=== PATIENT | female | born 1960 | race Caucasian/White ===

== ENCOUNTER 2020-03-16 06:41 | Outpatient (REF) | payer MEDICARE, SELFPAY | END 2020-03-16 06:42 | disposition home or self-care (01) | LOC: HO.LAB 06:41 | PROVIDERS: PCP Internal Medicine; Visit Provider Internal Medicine | DX: Z20.822 Contact with and (suspected) exposure to COVID-19 (principal) | CPT/HCPCS: 36415; C9803; U0003 ==

== ENCOUNTER 2020-05-06 09:05 | Outpatient (REF) | payer MEDICARE, SELFPAY ==
[2020-05-06 10:03] LABS: MANUAL DIFF FLAG NO
[2020-05-06 10:07] LABS: Basophils Absolute Auto 0.1 X10*3/uL (0.0-0.2); Eosinophils Absolute Auto 0.1 X10*3/uL (0.0-0.4); Eosinophils Percent Auto 2.3 % (0-4); Hematocrit 44.3 % (37-47); Hemoglobin 15.1 g/dl (12.0-16.0); Imm Gran Abs Auto 0.02 X10*3/uL (0.00-0.03); Imm Gran Pct Auto 0.4 % (0.0-0.4); Lymphocytes Absolute Auto 1.5 X10*3/uL (1.2-4.9); Lymphocytes Percent Auto 29.3 % (20-40); Mean Corpuscular HGB Conc 34.1 g/dl (31.0-35.0); Mean Corpuscular Hemoglobin 31.7 pg (27.0-33.0); Mean Corpuscular Volume 93.1 fL (80-98); Mean Platelet Volume 9.6 fL (9.4-12.3); Monocytes Absolute Auto 0.4 X10*3/uL (0.1-1.2); Monocytes Percent Auto 8.1 % (2-11); Neutrophils Percent Auto 58.9 % (45-73); Platelet Count 248 X10*3/uL (160-400); Red Blood Count 4.76 X10*6/uL (4.20-5.50); Red Cell Distribution Width 12.8 % (11.0-16.0); White Blood Count 5.2 X10*3/uL (4.8-10.8)
[2020-05-06 10:22] LABS: Appearance Urine CLEAR; Color Urine YELLOW; Glucose Urine UA NEG (NEG); Leukocyte Esterase Urine 1+ (NEG); Nitrite Urine NEG (NEG); Urine Blood NEG (NEG); Urine Ketones NEG (NEG); Urine Protein NEG (NEG-TRACE)
[2020-05-06 10:51] LABS: RBC Urine 0 /HPF (0); Squamous Epithelial Cell Urine 1+ /LPF
[2020-05-06 10:59] LABS: Free T4 (Free Thyroxine) 0.92 ng/dL (0.71-1.85); Thyroid Stimulating Hormone 1.44 uIU/mL (0.32-4.0); Vitamin D 25-OH Total 23.8 ng/mL (>30)
[2020-05-06 11:08] LABS: Alanine Aminotransferase 21 U/L (0-31); Albumin Level 4.3 g/dL (3.5-5.0); Alkaline Phosphatase 83 U/L (39-117); Anion Gap 12 (12-20); Aspartate Amino Transferase 23 U/L (5-31); Bilirubin Total 0.8 mg/dL (0.0-1.0); Blood Urea Nitrogen 12 mg/dL (9-16); Calcium 8.9 mg/dL (8.4-10.2); Carbon Dioxide 25 mmol/L (22-29); Chloride 107 mmol/L (96-108); Cholesterol 257 mg/dL; Estimated Glomerular Filt Rate 57; Glucose Random 94 mg/dL (60-115); HDL Cholesterol 92 mg/dL; LDL Cholesterol Calculated 155 mg/dl; Potassium 4.4 mmol/L (3.3-5.1); Sodium 140 mmol/L (135-145); Triglycerides 53 mg/dL
[2020-05-06 11:23] LABS: Folate 8.7 ng/mL (> or = 4.0); Vitamin B12 347 pg/mL (200-900)
== END 2020-05-06 09:06 | disposition home or self-care (01) ==
LOC: HO.10HDL 09:05
PROVIDERS: Visit Provider Internal Medicine
DX: E78.00 Pure hypercholesterolemia, unspecified (principal); I47.1 Supraventricular tachycardia; N39.46 Mixed incontinence
CPT/HCPCS: 36415; 80053; 80061; 81001; 82306; 82607; 82746; 84439; 84443; 85025; 86900; 86901

== ENCOUNTER → 2020-09-30 10:13 | Outpatient (REF) | payer MEDICARE, SELFPAY ==
--- NOTE | 2020-09-30 10:30 | CA_ITS ---
Transthoracic Echocardiogram Patient (Last, First, Middle): Catherine Snider E Gender: Female Date of : 1960 Age: 60 Procedure Date: 09/30/2020 Procedure Type: Transthoracic Echocardiogram Location: OP Height: 160.02 cm Weight: 62.14 kg BSA: 1.65 m2 Heart Rate: bpm BP: 118 / 68 mmHg Debate Director: Referring MD: Ta Okeefe PA-C Symptoms: I49.3 PVC,I47.2 PVT, I49.1 PAC, R00.2 PALPITATIONS, Z79.899 Study Quality: Fair ECG Rhythm: Sinus Conclusions: - The left ventricular systolic function is normal. The visually estimated ejection fraction is between 55-60%. - There is mild anterior mitral leaflet thickening. - No obvious valvular pathology seen on this study. Findings Left Ventricle Normal left ventricular cavity size. There is normal left ventricular wall thickness. The left ventricular systolic function is normal. The visually estimated ejection fraction is between 55-60%. There is no evidence of regional wall motion abnormalities. Diastolic function is normal for age. Right Ventricle Normal right ventricular cavity size and systolic function. TAPSE 2.36cm. Atria Both atria are normal in size. Aortic Valve There is a normal trileaflet aortic valve. There is no aortic valve stenosis. There is no aortic valve regurgitation. Mitral Valve There is mild anterior mitral leaflet thickening. There is trace mitral valve regurgitation. There is no mitral valve stenosis. Pulmonic Valve The pulmonic valve was not well visualized. Tricuspid Valve There is trace tricuspid valve regurgitation. The pulmonary artery systolic pressure is normal. Great Vessels The aortic annulus, sinuses of valsalva, and asc aorta are normal in size. Venous The inferior vena cava is normal in size and collapses greater than 50% with inspiration. Pericardium/Pleural There is no evidence of pericardial effusion. Prior Study Comparison No significant change compared to prior study dated: 01/10/2019. Recommendations, Care & Conclusions No obvious valvular pathology seen on this study. Measurements 2D Linear Measurements IVSd: 0.72 0.6-0.9/0.6-1.0 cm LVIDd: 4.59 3.9-5.3/4.2-5.9 cm LVIDd Index: 2.78 2.4-3.2/2.2-3.1 cm/m2 LVIDs: 2.98 2.0-3.6 cm LVPWd: 0.73 0.7-1.1 cm Ao Root: 2.40 2.1-3.5 cm LA Diam: 3.00 2.7-3.8/3.0-4.0 cm LAIDs Index: 1.82 1.5-2.3 cm/m2 LV Mass: 128.36 67-162/88-224 g LV Mass Index: 77.80 43-95/49-115 g/m2 LVOT Diam: 1.90 3.0+(-)1.3 cm 2D Systolic Function EF 4C: 50.30 >55% EF 2C: 60.00 >55% EF BiP: 54.70 >55% Mitral Valve MV Pk E: 0.56 MV PK A: 0.70 MV Decel Time: 204.00 E/A: 0.80 E'Lateral: 9.36 E'Medial: 4.68 E/E' Med: 11.90 E/E' Lat: 6.00 PHT: 60.00 MVA PHT: 3.67 Decel Berks: 2.73 Aortic Valve AoV Pk Saran: 1.19 AoV Mn Saran: 0.78 AoV VTI: 0.29 AoV Pk Grad: 6.00 Aov Mn Grad: 3.00 ADILSON Cont.VTI: 1.66 LVOT LVOT Pk Saran: 0.68 LVOT Mn Saran: 0.46 LVOT VTI: 0.17 LVOT Pk Grad: 2.00 LVOT Mn Grad: 1.00 LVOT Diam: 1.90 LVOT Area: 2.84 Diastolic Function MV Pk E: 0.56 MV Pk A: 0.70 E/A: 0.80 E'Medial: 4.68 E/E' Med: 11.90 E' Laterial: 9.36 E/E' Lat: 6.00 Right Ventricle TAPSE (mm): 2.36 TVS' Saran: 10.60 Tricuspid Valve TR Pk Saran: 2.00 TR Pk Grad: 16.00 RA Press: 3.00 RVSP: 19.00 Great Vessels Aorta Ao Root-2D: 2.40 2.0-3.7 cm Ao Asc: 2.90 2.1-3.4 cm Pulmonary Valve PV Pk Saran: 0.79 Peak PV Grad: 2.00 Updated in Other Vendor System with Status of Final Rex Wilde MD electronically signed on 10/02/2020 2:29:43 PM with status of Final
== END ==
LOC: HO.CARD 10:13
PROVIDERS: PCP Internal Medicine; Visit Provider Physician Assistant Medical
DX: I49.3 Ventricular premature depolarization (principal); R00.2 Palpitations
CPT/HCPCS: 93306

== ENCOUNTER 2020-11-11 | Outpatient (REF) | payer MEDICARE, SELFPAY ==
[2020-11-11 13:33] LABS: Appearance Urine CLEAR; Color Urine YELLOW; Glucose Urine UA NEG (NEG); Leukocyte Esterase Urine 1+ (NEG); Nitrite Urine NEG (NEG); Specific Gravity - Urine 1.015 (1.005-1.025); UACC Culture Trigger YES; Urine Blood TRACE (NEG); Urine Ketones NEG (NEG); Urine Protein NEG (NEG-TRACE)
[2020-11-11 13:43] LABS: Squamous Epithelial Cell Urine 1+ /LPF
== END 2020-11-11 00:01 | disposition home or self-care (01) ==
LOC: HO.LAB
PROVIDERS: PCP Internal Medicine; Visit Provider Internal Medicine
DX: R31.9 Hematuria, unspecified (principal)
CPT/HCPCS: 81001; 87086; 87088; 87147; 87186

== ENCOUNTER 2020-12-07 10:00 | Outpatient (REF) | payer MEDICARE, SELFPAY ==
--- NOTE | ~2020-12-07 | XR_ITS ---
EXAMINATION: XR SACRUM AND COCCYX CLINICAL INFORMATION: Pain. COMPARISON: CT abdomen/pelvis dated 11/24/2017 TECHNIQUE: 2 views of the sacrum and 2 views of the coccyx were obtained. FINDINGS: Mild right and left sacroiliac joint space narrowing with small marginal osteophytes and minimal subchondral sclerosis, unchanged. No osseous erosion. Phleboliths within the pelvis. No fracture or dislocation. 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
--- NOTE | ~2020-12-07 | XR_ITS ---
EXAMINATION: XR KNEE, RIGHT CLINICAL INFORMATION: Pain. COMPARISON: None. TECHNIQUE: AP and lateral views of the right knee. FINDINGS: Mild medial compartment joint space narrowing. Tiny medial and patellofemoral compartment marginal osteophytes. No osseous erosion. No abnormal soft tissue calcification. Small joint effusion. XR/XR knee RT 2V IMPRESSION: Minimal medial and patellofemoral compartment arthrosis. Small joint effusion.
== END 2020-12-07 10:01 | disposition home or self-care (01) ==
LOC: HO.XRAY 10:00
PROVIDERS: PCP Internal Medicine; Visit Provider Internal Medicine
DX: M25.561 Pain in right knee (principal); M54.50 Low back pain, unspecified
CPT/HCPCS: 72220; 73560

== ENCOUNTER 2021-01-15 07:15 | Outpatient (REF) | payer MEDICARE, SELFPAY ==
--- NOTE | ~2021-01-15 | XR_ITS ---
EXAMINATION: RIGHT KNEE X-RAY CLINICAL INFORMATION: Pain COMPARISON: Previous x-ray December 2020 TECHNIQUE: [place] view of the right knee FINDINGS: Bone alignment is normal. No fracture is seen. XR/XR knee RT 1V IMPRESSION: Normal sunrise view of the right knee.
== END 2021-01-15 07:16 | disposition home or self-care (01) ==
LOC: HO.HOSX 07:15
PROVIDERS: Visit Provider Physician Assistant
DX: M25.561 Pain in right knee (principal)
CPT/HCPCS: 73560; 99202

== ENCOUNTER 2021-04-22 07:21 | Outpatient (REF) | payer MEDICARE, SELFPAY ==
--- NOTE | ~2021-04-22 | CT_ITS ---
EXAMINATION: CT ABDOMEN AND PELVIS WITHOUT CONTRAST CLINICAL INFORMATION: Left lower quadrant pain. COMPARISON: 11/24/2017 TECHNIQUE: Multidetector volumetric imaging was performed from the superior aspect of the liver through the pubic symphysis. Sagittal and coronal reformatted images were obtained on the technologist's workstation. This CT examination was performed using dose optimization techniques as appropriate, variously including the following: *Automated exposure control *Adjustment of mA and/or kV according to patient size (this includes techniques or standardized protocols for targeted exams where dose is matched to indication/reason for exam; i.e. extremities or head) *Use of iterative reconstruction technique DLP: 360 mGy-cm FINDINGS: LUNG BASES: Lung bases appear unremarkable. No pleural or pericardial effusion. LIVER, GALLBLADDER, AND BILIARY TREE: The liver is normal in size, shape, and attenuation. No focal hepatic lesion or biliary ductal dilatation is present. Cholelithiasis is present without evidence of acute cholecystitis. PANCREAS: Unremarkable. No abnormal mass or peripancreatic inflammatory change. SPLEEN: Unremarkable. ADRENAL GLANDS: Unremarkable. KIDNEYS AND URETERS: The kidneys are normal in size, shape, and attenuation. No hydronephrosis, hydroureter, or calculi seen. No perinephric stranding. BLADDER: Decompressed. GASTROINTESTINAL TRACT: No free air or free fluid. No dilated loops of large or small bowel. Patient status post previous sigmoid colon surgery. There is stranding within mesenteric fat with mild diverticulosis of the descending colon; however, no focal region of wall thickening or fluid collection is identified and I cannot definitely say this is related to acute diverticulitis. No dilated colon is seen proximal to the surgical anastomoses. ABDOMINAL WALL: No significant hernia is appreciated. LYMPH NODES: No lymphadenopathy is appreciated. VASCULAR: No abdominal aortic aneurysm. PELVIC VISCERA: No suspicious mass identified. OSSEOUS STRUCTURES: No suspicious destructive bony lesions identified. There is some degenerative change of the sacroiliac joints bilaterally without evidence of widening or fusion. There is partial sacralization of L5. CT/CT abdomen pelvis wo con IMPRESSION: Nonspecific mesenteric fat stranding. No definite evidence of acute diverticulitis or colitis. No abnormal fluid collections appreciated. Cholelithiasis without evidence of acute cholecystitis. Fleischner guidelines were followed.
== END 2021-04-22 07:22 | disposition home or self-care (01) ==
LOC: HO.CT 07:21
PROVIDERS: Visit Provider Nurse Practitioner Family
DX: R10.32 Left lower quadrant pain (principal)
CPT/HCPCS: 74176

== ENCOUNTER 2021-06-24 10:29 | Outpatient (REF) | payer MEDICARE, SELFPAY ==
[2021-06-24 10:56] LABS: COVID-19 Test Negative (Negative); IDNOW Serial# 08D9AD1C
== END 2021-06-24 10:30 | disposition home or self-care (01) ==
LOC: HO.LAB 10:29
PROVIDERS: Visit Provider Internal Medicine
DX: Z20.822 Contact with and (suspected) exposure to COVID-19 (principal)
CPT/HCPCS: 87635; C9803

== ENCOUNTER 2021-09-07 09:29 | Outpatient (REF) | payer MEDICARE, SELFPAY ==
[2021-09-07 10:03] LABS: COVID-19 Test Negative (Negative); IDNOW Serial# 16C4AD1C
== END 2021-09-07 09:30 | disposition home or self-care (01) ==
LOC: HO.LAB 09:29
PROVIDERS: Visit Provider Internal Medicine
DX: Z20.822 Contact with and (suspected) exposure to COVID-19 (principal)
CPT/HCPCS: 87635; C9803

== ENCOUNTER 2021-09-30 08:37 | Outpatient (REF) | payer MEDICARE, SELFPAY ==
[2021-09-30 09:16] LABS: COVID-19 Test Negative (Negative)
== END 2021-09-30 08:38 | disposition home or self-care (01) ==
LOC: HO.LAB 08:37
PROVIDERS: Visit Provider Internal Medicine
DX: Z20.822 Contact with and (suspected) exposure to COVID-19 (principal)
CPT/HCPCS: 87635; C9803

== ENCOUNTER 2021-10-21 07:49 | Outpatient (REF) | payer MEDICARE, SELFPAY ==
[2021-10-21 10:57] LABS: MANUAL DIFF FLAG NO
[2021-10-21 11:05] LABS: Appearance Urine Clear; Color Urine Yellow; Glucose Urine UA Negative (Negative); Leukocyte Esterase Urine Negative (Negative); Nitrite Urine Negative (Negative); PH 5.5 (5.0-8.0); Specific Gravity - Urine 1.015 (1.005-1.025); Urine Blood Negative (Negative); Urine Ketones Negative (Negative); Urine Protein Negative (Neg-Trace)
[2021-10-21 11:06] LABS: Basophils Absolute Auto 0.1 X10*3/uL (0.0-0.2); Basophils Percent Auto 0.9 % (0-2); Eosinophils Absolute Auto 0.1 X10*3/uL (0.0-0.4); Eosinophils Percent Auto 2.2 % (0-4); Hematocrit 45.6 % (37.0-47.0); Hemoglobin 15.5 g/dl (12.0-16.0); Imm Gran Abs Auto 0.02 X10*3/uL (0.00-0.03); Imm Gran Pct Auto 0.4 % (0.0-0.4); Immature Retic Fraction 6.2 % (3.0-15.9); Lymphocytes Absolute Auto 1.6 X10*3/uL (1.2-4.9); Mean Corpuscular Hemoglobin 31.3 pg (27.0-33.0); Mean Corpuscular Volume 91.9 fL (80.0-98.0); Mean Platelet Volume 9.8 fL (9.4-12.3); Monocytes Absolute Auto 0.4 X10*3/uL (0.1-1.2); Monocytes Percent Auto 7.5 % (2-11); Neutrophils Absolute Auto 3.2 x10*3/uL (2.0-8.3); Platelet Count 257 X10*3/uL (160-400); Red Blood Count 4.96 X10*6/uL (4.20-5.50); Red Cell Distribution Width 12.6 % (11.0-16.0); Retic HGB Equivalent 37.3 pg (30.0-35.0); Reticulocyte Percent 1.2 % (0.5-1.8); White Blood Count 5.4 X10*3/uL (4.8-10.8)
[2021-10-21 11:22] LABS: Alanine Aminotransferase 15 U/L (0-31); Albumin Level 4.3 g/dL (3.5-5.0); Alkaline Phosphatase 80 U/L (39-117); Anion Gap 15 (12-20); Aspartate Amino Transferase 17 U/L (5-31); Bilirubin Total 0.5 mg/dL (0.0-1.0); Blood Urea Nitrogen 19 mg/dL (9-16); C Reactive Protein 0.07 mg/dL (< or = 0.50); Calcium 9.4 mg/dL (8.4-10.2); Carbon Dioxide 26 mmol/L (22-29); Chloride 105 mmol/L (96-108); Cholesterol 259 mg/dL; Estimated Glomerular Filt Rate 54; Glucose Random 92 mg/dL (60-115); HDL Cholesterol 80 mg/dL; Iron 118 mcg/dL (30-160); LDL Cholesterol Calculated 164 mg/dl; Magnesium 2.1 mg/dL (1.6-2.6); Percent Iron Saturation 42 % (15-50); Phosphorus 4.5 mg/dL (2.7-4.5); Potassium 4.4 mmol/L (3.3-5.1); Sodium 142 mmol/L (135-145); Total Iron Binding Capacity 282 mcg/dL (228-428); Total Protein 7.3 g/dL (6.5-8.0); Triglycerides 75 mg/dL; Unsaturated Iron Binding 164 ug/dL
[2021-10-21 11:45] LABS: Ferritin 77 ng/mL (10-250); Free T4 (Free Thyroxine) 0.94 ng/dL (0.71-1.85); Thyroid Stimulating Hormone 2.28 uIU/mL (0.32-4.0); Vitamin D 25-OH Total 28.8 ng/mL (>30)
[2021-10-21 13:15] LABS: Folate 7.6 ng/mL (> or = 4.0); Vitamin B12 321 pg/mL (200-900)
== END 2021-10-21 07:50 | disposition home or self-care (01) ==
LOC: HO.10HDL 07:49
PROVIDERS: Visit Provider Internal Medicine
DX: E78.00 Pure hypercholesterolemia, unspecified (principal); I47.1 Supraventricular tachycardia; E55.9 Vitamin D deficiency, unspecified; K80.20 Calculus of gallbladder without cholecystitis without obstruction; R30.0 Dysuria
CPT/HCPCS: 36415; 80053; 80061; 81003; 82306; 82607; 82728; 82746; 83540; 83735; 84100; 84439; 84443; 85025; 85045; 86140

== ENCOUNTER 2022-08-29 11:14 | Outpatient (REF) | payer MEDICARE, SELFPAY ==
[2022-08-29 12:33] LABS: Appearance Urine Clear; Color Urine Yellow; Glucose Urine UA Negative (Negative); Leukocyte Esterase Urine Negative (Negative); Nitrite Urine Negative (Negative); Specific Gravity - Urine <= 1.005 (1.005-1.025); Urine Blood Negative (Negative); Urine Ketones Negative (Negative); Urine Protein Negative (Neg-Trace)
== END 2022-08-29 11:15 | disposition home or self-care (01) ==
LOC: HO.LAB 11:14
PROVIDERS: PCP Internal Medicine; Visit Provider Internal Medicine
DX: R31.9 Hematuria, unspecified (principal)
CPT/HCPCS: 81003; 87086

== ENCOUNTER 2022-08-30 09:31 | Outpatient (REF) | payer MEDICARE, SELFPAY | END 2022-08-30 09:32 | disposition home or self-care (01) | LOC: HO.LAB 09:31 | PROVIDERS: PCP Internal Medicine; Visit Provider Internal Medicine | DX: Z13.89 Encounter for screening for other disorder (principal) ==

== ENCOUNTER 2022-09-16 15:37 | Outpatient (AMB) | payer MEDICARE, SELFPAY ==
[2022-09-16 15:38] VITALS: BP 118/72; PULSE 77; O2SAT 97; BMI 25.7
--- NOTE | 2022-09-16 15:38 | MHC.PC.OV ---
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 Accompanied by: Self / Same As Patient Allergies Iodinated Contrast Media [IV CONTRAST] Allergy (Intermediate, Verified 09/16/22 15:39) PERIORBITAL SWELLING ciprofloxacin [From CIPRO] Allergy (Unknown, Verified 09/16/22 15:39) Nausea iodine Allergy (Unknown, Verified 09/16/22 15:39) from the [facility]SCAn had sweling periorbital metronidazole [Flagyl] Allergy (Unknown, Verified 09/16/22 15:39) headaches Sulfa (Sulfonamide Antibiotics) Allergy (Unknown, Verified 09/16/22 15:39) headache, severe migraine sulfamethoxazole [From BACTRIM] Allergy (Unknown, Verified 09/16/22 15:39) HEADACHE trimethoprim [From BACTRIM] Allergy (Unknown, Verified 09/16/22 15:39) HEADACHE Medication List - Last Reconciled 09/16/22 by Andre Tipton MD lorazepam 0.5 mg PO BID-TID PRN metoprolol tartrate 12.5 mg PO BID PRN Tobacco use date assessed: 09/16/22 Dental Screening Dental Screen Date: 09/16/22 Did you have a dental visit in the last 12 months?: Yes Did you have a dental problem in the last 6 months where you did not have access to dental care?: No Was dental information given to patient?: Patient has dentist HPI left sided lower abdominal pain HPI Details 62-year-old female with PSVT, hypercholesterolemia generalized anxiety disorder insomnia last seen in April 2022. Colonoscopy is up-to-date mammogram is due. Patient was recently in the emergency room in [facility] left lower quadrant pain question of diverticulitis CT scan done revealing no diverticulitis patient was prescribed antibiotic but patient was hesitant due to history of C diff. PAtient is upset with previous physician.. found blood on urination- ]Dr. Jama patient is on loop recorder right now. Patient needs a letter for jury duty. Discussed with the patient regarding the type of pain and went to suspect that there is bigger problem. Discussed about rebound as well as guarding. COUNT INCLUDES THE [facility] Medical History Diverticular disease Hypercholesterolemia Hyperventilation syndrome Mitral valve prolapse Paroxysmal supraventricular tachycardia Polycystic ovaries Vitamin D deficiency Surgical History History of cardiac radiofrequency ablation History of colonoscopy History of lymph node excision History of polycystic ovaries S/P colon resection Family History Father Myocardial infarction CVD (cardiovascular disease) Hypertension Mother CHF (congestive heart failure) Hypertension CAD (coronary artery disease) Maternal Grandfather Brain tumor Brother No problems noted. Sister No problems noted. Son No problems noted. Social History Housing: House Alcohol intake: never Patient Tobacco Use Status: Never used Tobacco e-Cigarette/Vaping Use: Never Used Second Hand Smoke Exposure: No service: No Current occupational status: unemployed Cognitive needs: No Hearing needs: No Vision needs: Yes (reading glasses) Questionnaire PHQ-9 Over the last 2 weeks, how often have you been bothered by any of the following problems? 1. Little interest or pleasure in doing things: more than half the days 2. Feeling down, depressed, or hopeless: more than half the days 3. Trouble falling or staying asleep, or sleeping too much: more than half the days 4. Feeling tired or having little energy: more than half the days 5. Poor appetite or overeating: several days 6. Feeling bad about yourself - or that you are a failure or have let yourself or your family down: several days 7. Trouble concentrating on things, such as reading the newspaper or watching television: several days 8. Moving or speaking so slowly that other people could have noticed. Or the opposite - being so fidgety or restless that you have been moving around a lot more than usual: not at all 9. Thoughts that you would be better off or of hurting yourself in some way: not at all Total score: 11 Depression Screening Interpretation: Positive Source: Developed by Drs. Ta Redding, Arleen Mckeon, Santosh Rodriguez and colleagues, with an educational donna from [employer]. Thrive Questionnaire Date Thrive assessed: 09/16/22 I am a: Patient What is your living situation today?: I have a steady place to live Within the past 12 months, did the food you bought not last and you didn't have the money to get more?: Never true Within the past 12 months, did you worry whether your food would run out before you got money to buy more?: Never true Do you have trouble paying for medicines?: No Do you have trouble getting transportation to medical appointments?: No Do you have trouble paying your heating and electricity bill?: No Do you have trouble taking care of your child, family member or friend?: No Do you have trouble with day-to-day activities such as bathing, preparing meals, shopping, managing finances, etc.?: No Are you currently unemployed and looking for a job?: No Are you interested in more education?: No Please select the resources that you would like help with: None Currently or been in a relationship where the following occur: no concerns reported AUDIT C Alcohol Use Questionnaire (AUDIT-C) 1. How often do you have a drink containing alcohol?: Never 3. How often do you have six or more drinks on one occasion?: Never Total Score: 0 Score Reviewed/Action Taken: No CHANELL-7 AMB Questionnaire CHANELL-7 Date CHANELL - 7 assessed: 09/16/22 Feeling nervous, anxious, or on edge: 0 = Not at all Not being able to stop or control worryin = Not at all Worrying too much about different things: 0 = Not at all Trouble relaxin = Not at all Being so restless that it is hard to sit still: 0 = Not at all Becoming easily annoyed or irritable: 0 = Not at all Feeling afraid as if something awful might happen: 0 = Not at all Total CHANELL-7 score (0-4 normal; 5-9 mild; 10-14 moderate; 15-21 severe): 0 Source: Developed by Drs. Ta Redding, Arleen Mckeon, Santosh Rodriguez and colleagues, with an educational donna from [employer]. Physical exam (Primary Care) Vital Signs: Last Vital Signs Pulse 77 09/16/22 15:38 BP 118/72 09/16/22 15:38 Pulse Ox 97 09/16/22 15:38 Oxygen Delivery Method Room Air 09/16/22 15:38 BMI result Body Mass Index 25.7 Tobacco/Smoking Status: Tobacco use Status Tobacco use date assessed 09/16/22 09/16/22 15:43 Patient Tobacco Use Status Never used Tobacco 09/16/22 15:43 e-Cigarette/Vaping Use Never Used 09/16/22 15:43 PHQ-9: PHQ-9 Score PHQ-9: Total score 11 09/16/22 15:43 Depression Screening Interpretation: Positive Thrive Assessment: Date of Thrive Assessment Date Thrive assessed 09/16/22 09/16/22 15:43 Currently or been in a relationship where the following occur: no concerns reported Const General: alert; No acute distress Eyes Conjunctivae: conjunctivae normal Resp Auscultation: clear to auscultation bilaterally Cardio Rate: regular rate Rhythm: regular rhythm GI Inspection: Yes normal to inspection Extrem General: Yes normal to inspection and No edema Assessment and Plan Assessment & Plan (1) Paroxysmal supraventricular tachycardia: Comment: November 2014 Dr. Elkins [facility] cardiac MRI 2017 echo 60-65% mild MR January [address] Jama and [place] Dr. Ramey April 2019 cardiac MRI ejection fraction 57% normal echocardiogram October 2021 ejection fraction 45-50% Code(s): I47.1 - Supraventricular tachycardia Plan: Continue to follow-up on this patient on metoprolol filled 12.5 mg twice a day (2) Hypercholesterolemia: Code(s): E78.00 - Pure hypercholesterolemia, unspecified Plan: Avoid fried foods, chicken skin, eggs, butter margarine, pastries and meat. Be it pork or beef they have a lot of cholesterol LDL goal of less than 130 and triglyceride of less than 150 (3) Generalized anxiety disorder: Comment: Panic attacks. counselling private- DR. Garcia. Code(s): F41.1 - Generalized anxiety disorder Plan: Continue with counseling (4) LLQ pain: Code(s): R10.32 - Left lower quadrant pain Plan: Resolved (5) Constipation: Code(s): K59.00 - Constipation, unspecified Plan: Three rules for constipation 1. Diet need to have a high fiber diet less of meat 2. Increase oral fluids 3. Exercise Coding Level of Care Code Est Pt Level 4 (07474) Diagnoses Paroxysmal supraventricular tachycardia I47.1 Hypercholesterolemia E78.00 Generalized anxiety disorder F41.1 LLQ pain R10.32 Constipation K59.00 Additional Codes PHQ-9 - 79428 - PHQ-9 Billing: Y ([id number])
== END 2022-09-16 16:28 | disposition home or self-care (01) ==
PROVIDERS: PCP Internal Medicine; Visit Provider Internal Medicine
DX: I47.1 Supraventricular tachycardia (principal); E78.00 Pure hypercholesterolemia, unspecified; F41.1 Generalized anxiety disorder; R10.32 Left lower quadrant pain; K59.00 Constipation, unspecified; Z13.30 Encounter for screening examination for mental health and behavioral disorders, unspecified
CPT/HCPCS: 99214

== ENCOUNTER 2023-01-17 13:41 | Outpatient (AMB) | payer MEDICARE, SELFPAY ==
[2023-01-17 13:57] VITALS: BP 144/98; PULSE 62; O2SAT 98; BMI 26.9
--- NOTE | 2023-01-17 13:57 | A.OFFPC_ITS ---
Vital Signs 01/17/23 13:57 Height 5 ft 3 in Weight 152 lb BMI 26.9 BP 144/98 H Blood Pressure Location Lt brachial Position Sitting Pulse 62 Pulse Source Pulse Oximeter Pulse Oximetry (%) 98 Oxygen Delivery Method Room Air Intake Visit Reasons: Annual Exam Sample Prep Technician: Not Required per policy Accompanied by: Self / Same As Patient Allergies Iodinated Contrast Media [IV CONTRAST] Allergy (Intermediate, Verified 01/17/23 13:58) PERIORBITAL SWELLING ciprofloxacin [From CIPRO] Allergy (Unknown, Verified 01/17/23 13:58) Nausea iodine Allergy (Unknown, Verified 01/17/23 13:58) from the CTSCAn had sweling periorbital metronidazole [Flagyl] Allergy (Unknown, Verified 01/17/23 13:58) headaches Sulfa (Sulfonamide Antibiotics) Allergy (Unknown, Verified 01/17/23 13:58) headache, severe migraine sulfamethoxazole [From BACTRIM] Allergy (Unknown, Verified 01/17/23 13:58) HEADACHE trimethoprim [From BACTRIM] Allergy (Unknown, Verified 01/17/23 13:58) HEADACHE Medication List - Last Reconciled 01/17/23 by Andre Tipton MD lorazepam 0.5 mg PO BID-TID PRN metoprolol tartrate 12.5 mg PO BID PRN Tobacco use date assessed: 09/16/22 Dental Screening Dental Screen Date: 01/17/23 Did you have a dental visit in the last 12 months?: Yes Did you have a dental problem in the last 6 months where you did not have access to dental care?: No Was dental information given to patient?: Patient has dentist HPI Annual Exam HPI Details 62-year-old female with PSVT hypercholes terolemia and generalized anxiety disorder last seen in September 2022. Shunt is here for physical exam. Colonoscopy is up-to-date mammogram is due. Review of the notes was seen by Neurology for dizziness diagnosis of hyperventilation syndrome better with lorazepam vertigo has benign positional vertigo patient also has seen Cardiology had unsuccessful ablation and implantable loop recorder placement in 2014 structurally normal heart 2016 no evidence of cardiomyopathy trial of atenolol with some improvement but intolerance transition to metoprolol intolerant of propranolol negative genetic testing negative PET scan was supposed to have a reimplantation of loop recorder but was postponed due to co COVID-19 trial ofAcebutololbut this did not go through. Most recent January 2022 Zio patch on metoprolol [facility] Medical History Hyperventilation syndrome Diverticular disease Mitral valve prolapse Vitamin D deficiency Hypercholesterolemia Polycystic ovaries Paroxysmal supraventricular tachycardia Surgical History History of colonoscopy History of polycystic ovaries S/P colon resection History of lymph node excision History of cardiac radiofrequency ablation Family History Father Myocardial infarction CVD (cardiovascular disease) Hypertension Mother CHF (congestive heart failure) Hypertension CAD (coronary artery disease) Maternal Grandfather Brain tumor Brother No problems noted. Sister No problems noted. Son No problems noted. Social History Housing: House Alcohol intake: never Patient Tobacco Use Status: Never used Tobacco e-Cigarette/Vaping Use: Never Used Second Hand Smoke Exposure: No service: No Current occupational status: unemployed Cognitive needs: No Hearing needs: No Vision needs: Yes (reading glasses) Questionnaire PHQ-9 Over the last 2 weeks, how often have you been bothered by any of the following problems? 1. Little interest or pleasure in doing things: more than half the days 2. Feeling down, depressed, or hopeless: more than half the days 3. Trouble falling or staying asleep, or sleeping too much: more than half the days 4. Feeling tired or having little energy: more than half the days 5. Poor appetite or overeating: several days 6. Feeling bad about yourself - or that you are a failure or have let yourself or your family down: several days 7. Trouble concentrating on things, such as reading the newspaper or watching television: several days 8. Moving or speaking so slowly that other people could have noticed. Or the opposite - being so fidgety or restless that you have been moving around a lot more than usual: not at all 9. Thoughts that you would be better off or of hurting yourself in some way: not at all Total score: 11 Depression Screening Interpretation: Positive Depression Screening Done: Yes Source: Developed by Calvin Ohet B.W. Mike, Santosh Rodriguez and colleagues, with an educational donna from [employer]. Thrive Questionnaire Date Thrive assessed: 09/16/22 AUDIT C Alcohol Use Questionnaire (AUDIT-C) 1. How often do you have a drink containing alcohol?: Never 3. How often do you have six or more drinks on one occasion?: Never Total Score: 0 Score Reviewed/Action Taken: No CHANELL-7 AMB Questionnaire CHANELL-7 Date CHANELL - 7 assessed: 09/16/22 Source: Developed by Drs. Ta Redding, Arleen Mckeon, Santosh Rodriguez and colleagues, with an educational donna from [employer]. Review of Systems Const Denies poor appetite and Denies weakness Eyes Denies no additional complaints ENT Reports Normal hearing present, Denies dizziness, Denies nasal congestion, Denies tinnitus and Denies sore throat Card Denies chest pain, Denies syncope, Denies rapid heart rate and Denies dyspnea Resp Denies cough and Denies dyspnea GI Denies change in stool character, Reports constipation, Denies diarrhea, Denies nausea and Denies vomiting Denies urinary frequency, Denies difficulty voiding and Denies dysuria Neuro Reports Normal hearing present, Denies confusion, Denies dizziness, Denies syncope and Denies weakness Psych Denies confusion Physical exam (Primary Care) Vital Signs: Last Vital Signs Pulse 62 01/17/23 13:57 BP 144/98 H 01/17/23 13:57 Pulse Ox 98 01/17/23 13:57 Oxygen Delivery Method Room Air 01/17/23 13:57 BMI result Body Mass Index 26.9 Tobacco/Smoking Status: Tobacco use Status Tobacco use date assessed 09/16/22 01/17/23 14:01 Patient Tobacco Use Status Never used Tobacco 01/17/23 14:01 e-Cigarette/Vaping Use Never Used 01/17/23 14:01 PHQ-9: PHQ-9 Score PHQ-9: Total score 11 01/17/23 14:01 Depression Screening Interpretation: Positive Thrive Assessment: Date of Thrive Assessment Date Thrive assessed 09/16/22 01/17/23 14:01 Const General: No confusion Orientation/consciousness: No confusion HENMT Other: L TM intact, R impacted cerumen Head: Yes normocephalic Ears: external ears normal Face and sinus: Yes normal facial exam Mouth: moist mucous membranes Throat: Yes tonsils normal Eyes Conjunctivae: conjunctivae normal Pupils: Equal, round and reactive pupils present and Pupil accommodation reflex normal Direct Ophthalmoscopy: normal light reflex Neck Neck: No lymphadenopathy Thyroid: Thyroid normal Chest Chest palpation & inspection: normal inspection of the chest Resp Effort & Inspection: normal respiratory effort and no audible wheezes Auscultation: clear to auscultation bilaterally, no crackles, no wheezes and lung sounds not diminished Cardio Rate: regular rate Rhythm: regular rhythm Peripheral pulses: radial pulses present and dorsalis pedis present GI Palpation (GI): no masses Auscultation: normal bowel sounds and normoactive bowel sounds Rectal Exam - Female: deferred Skin General skin exam: no rashes or lesions noted Rashes: no rashes Neuro General: No confusion Cranial nerves: Yes Equal, round and reactive pupils present and Yes Normal hearing present Cognition (Neuro): normal cognition Gait exam (Neuro): Normal gait present Motor exam (neuro): 5/5 motor strength present throughout Deep tendon reflexes (DTR's): Right brachioradialis reflex intensity grade: 2+, Left brachioradialis reflex intensity grade: 2+, Right patellar reflex intensity grade: 2+ and Left patellar reflex intensity grade: 2+ Extrem General: No edema Office Procedures Cerumen Removal From which ear canal was the cerumen removed: right Removal: otoscope w/curette and cerumen loop/spoon Notes: patient tolerated procedure well, no complications and ear canal clear [id number] Wax Removal by Spoon/Curette Assessment and Plan Assessment & Plan (1) Annual physical exam: Code(s): Z00.00 - Encounter for general adult medical examination without abnormal findings (2) Paroxysmal supraventricular tachycardia: Comment: November 2014 Dr. Elkins [facility] cardiac MRI 2017 echo 60-65% mild MR January [address] Broderick and Madhav Ramey April 2019 cardiac MRI ejection fraction 57% normal echocardiogram October 2021 ejection fraction 45-50% Code(s): I47.1 - Supraventricular tachycardia Plan: Continue to be monitored by Cardiology and has been placed on metoprolol (3) Hyperventilation syndrome: Comment: June 2019 Code(s): F45.8 - Other somatoform disorders Plan: Discussed about anxiety patient has been seen by Neurology on lorazepam (4) Hypercholesterolemia: Code(s): E78.00 - Pure hypercholesterolemia, unspecified Plan: Avoid fried foods, chicken skin, eggs, butter margarine, pastries and meat. Be it pork or beef they have a lot of cholesterol LDL goal of less than 130 and triglyceride of less than 150 (5) Generalized anxiety disorder: Comment: Panic attacks. counselling private- DR. Garcia. Code(s): F41.1 - Generalized anxiety disorder Plan: Continue with counseling and therapy (6) Impacted cerumen of right ear: Code(s): H61.21 - Impacted cerumen, right ear (7) Blood pressure elevated without history of HTN: Code(s): R03.0 - Elevated blood-pressure reading, without diagnosis of hypertension Plan: monitor the BP for now Orders: Orders Complete Blood Count Auto Diff 3 Months E78.00 - Pure hypercholesterolemia, unspecified Comprehensive Met. Panel 3 Months E78.00 - Pure hypercholesterolemia, unspecified Free T4 (Free Thyroxine) 3 Months E78.00 - Pure hypercholesterolemia, unspecified Thyroid Stimulating Hormone 3 Months E78.00 - Pure hypercholesterolemia, unspecified Vitamin B12 and Folate 3 Months E78.00 - Pure hypercholesterolemia, unspecified Lipid Panel 3 Months E78.00 - Pure hypercholesterolemia, unspecified Vitamin D 25-OH Total 3 Months E78.00 - Pure hypercholesterolemia, unspecified Coding Level of Care Code Est Pt Prev Care 40-64y(74488) Diagnoses Annual physical exam Z00.00 Paroxysmal supraventricular tachycardia I47.1 Hyperventilation syndrome F45.8 Hypercholesterolemia E78.00 Generalized anxiety disorder F41.1 Impacted cerumen of right ear H61.21 Blood pressure elevated without history of HTN R03.0 CPT Codes Office Procedure - CPT: 05474-Xpb Wax Removal by Spoon/Curette ([id number]) Additional Codes PHQ-9 - 82050 - PHQ-9 Billing: ([id number])
== END 2023-01-17 15:03 | disposition home or self-care (01) ==
PROVIDERS: PCP Internal Medicine; Visit Provider Internal Medicine
DX: Z00.00 Encounter for general adult medical examination without abnormal findings (principal); I47.1 Supraventricular tachycardia; H61.21 Impacted cerumen, right ear; F45.8 Other somatoform disorders; E78.00 Pure hypercholesterolemia, unspecified; F41.1 Generalized anxiety disorder; R03.0 Elevated blood-pressure reading, without diagnosis of hypertension
CPT/HCPCS: 69210; 96127; 99396

== ENCOUNTER 2023-04-24 10:43 | Outpatient (AMB) | payer MEDICARE, SELFPAY ==
--- NOTE | 2023-04-24 10:42 | A.OFFPC_ITS ---
Intake Visit Reasons: 3 Month F/U/[phone] Intake Note: Patient is here to follow up on [symptoms]. Police Officer Booking Required: No Landscape Engineer: Not Required per policy Accompanied by: Self / Same As Patient Allergies Iodinated Contrast Media [IV CONTRAST] Allergy (Intermediate, Verified 04/24/23 10:44) PERIORBITAL SWELLING ciprofloxacin [From CIPRO] Allergy (Unknown, Verified 04/24/23 10:44) Nausea iodine Allergy (Unknown, Verified 04/24/23 10:44) from the CTSCAn had sweling periorbital metronidazole [Flagyl] Allergy (Unknown, Verified 04/24/23 10:44) headaches Sulfa (Sulfonamide Antibiotics) Allergy (Unknown, Verified 04/24/23 10:44) headache, severe migraine sulfamethoxazole [From BACTRIM] Allergy (Unknown, Verified 04/24/23 10:44) HEADACHE trimethoprim [From BACTRIM] Allergy (Unknown, Verified 04/24/23 10:44) HEADACHE Tobacco use date assessed: 09/16/22 Dental Screening Dental Screen Date: 04/24/23 Did you have a dental visit in the last 12 months?: Yes Did you have a dental problem in the last 6 months where you did not have access to dental care?: No Was dental information given to patient?: Patient has dentist HPI 3 Month F/U/[phone] HPI Details 62-year-old female with a history of par oxysmal supraventricular tachycardia, hyperventilation syndrome hypercholesterolemia generalized anxiety disorder coming in for follow-up. Last seen in January 2023 concerns about an elevated blood pressure patient is up-to-date with colonoscopy. 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 Patient follows up with Dr. Govea for cardiac MRI program evaluation loop recorder. depression due to son - detached.knows blood work not done. does walk 4 miles a day but anxious due to concern on SVT. [facility] Medical History Hyperventilation syndrome Diverticular disease Mitral valve prolapse Vitamin D deficiency Hypercholesterolemia Polycystic ovaries Paroxysmal supraventricular tachycardia Surgical History History of colonoscopy History of polycystic ovaries S/P colon resection History of lymph node excision History of cardiac radiofrequency ablation Family History Father Myocardial infarction CVD (cardiovascular disease) Hypertension Mother CHF (congestive heart failure) Hypertension CAD (coronary artery disease) Maternal Grandfather Brain tumor Brother No problems noted. Sister No problems noted. Son No problems noted. Social History Housing: House Alcohol intake: never Patient Tobacco Use Status: Never used Tobacco e-Cigarette/Vaping Use: Never Used Second Hand Smoke Exposure: No service: No Current occupational status: unemployed Cognitive needs: No Hearing needs: No Vision needs: Yes (reading glasses) Questionnaire PHQ-9 Over the last 2 weeks, how often have you been bothered by any of the following problems? 1. Little interest or pleasure in doing things: several days 2. Feeling down, depressed, or hopeless: several days 3. Trouble falling or staying asleep, or sleeping too much: nearly every day (staying asleep) 4. Feeling tired or having little energy: nearly every day 5. Poor appetite or overeating: nearly every day (over eating) 6. Feeling bad about yourself - or that you are a failure or have let yourself or your family down: several days 7. Trouble concentrating on things, such as reading the newspaper or watching television: not at all 8. Moving or speaking so slowly that other people could have noticed. Or the opposite - being so fidgety or restless that you have been moving around a lot more than usual: not at all 9. Thoughts that you would be better off or of hurting yourself in some way: not at all Total score: 12 Depression Screening Interpretation: Positive Depression Screening Done: Yes Source: Developed by Drs. Ta Redding, Arleen Mckeon, Santosh Rodriguez and colleagues, with an educational donna from [employer]. Thrive Questionnaire Date Thrive assessed: 04/24/23 I am a: Patient What is your living situation today?: I have a steady place to live Within the past 12 months, did the food you bought not last and you didn't have the money to get more?: Never true Within the past 12 months, did you worry whether your food would run out before you got money to buy more?: Never true Do you have trouble paying for medicines?: No Do you have trouble getting transportation to medical appointments?: No Do you have trouble paying your heating and electricity bill?: No Do you have trouble taking care of your child, family member or friend?: No Do you have trouble with day-to-day activities such as bathing, preparing meals, shopping, managing finances, etc.?: No Are you currently unemployed and looking for a job?: No Are you interested in more education?: No Currently or been in a relationship where the following occur: no concerns reported THRIVE Score: 0 AUDIT C Alcohol Use Questionnaire (AUDIT-C) 1. How often do you have a drink containing alcohol?: Never Total Score: 0 CHANELL-7 AMB Questionnaire CHANELL-7 Date CHANELL - 7 assessed: 04/24/23 Feeling nervous, anxious, or on edge: 0 = Not at all Not being able to stop or control worryin = Not at all Worrying too much about different things: 0 = Not at all Trouble relaxin = Not at all Being so restless that it is hard to sit still: 0 = Not at all Becoming easily annoyed or irritable: 0 = Not at all Feeling afraid as if something awful might happen: 0 = Not at all Total CHANELL-7 score (0-4 normal; 5-9 mild; 10-14 moderate; 15-21 severe): 0 Source: Developed by Drs. Ta Redding, Arleen Mckeon, Santosh Rodriguez and colleagues, with an educational donna from [employer]. Physical exam (Primary Care) Tobacco/Smoking Status: Tobacco use Status Tobacco use date assessed 09/16/22 04/24/23 10:42 Patient Tobacco Use Status Never used Tobacco 04/24/23 10:42 e-Cigarette/Vaping Use Never Used 04/24/23 10:42 PHQ-9: PHQ-9 Score PHQ-9: Total score 12 04/24/23 11:35 Depression Screening Interpretation: Positive Thrive Assessment: Date of Thrive Assessment Date Thrive assessed 04/24/23 04/24/23 10:49 Currently or been in a relationship where the following occur: no concerns reported Const General: alert; No acute distress Eyes Conjunctivae: conjunctivae normal Resp Auscultation: clear to auscultation bilaterally Cardio Rate: regular rate Rhythm: regular rhythm GI Inspection: Yes normal to inspection Extrem General: Yes normal to inspection and No edema Telehealth Telehealth Location of provider rendering services: practice address Location of patient: address on file Patient Identification confirmed using: Name, : Yes Telehealth method: voice only Patient verbally consented to treatment: Yes Patient verbally consented to billing insurance company: Yes Patient informed of any privacy concerns related to visit: Yes Minutes spent on Phone/Video with Pt.: 25 Assessment and Plan Assessment & Plan (1) Hypercholesterolemia: Code(s): E78.00 - Pure hypercholesterolemia, unspecified Plan: Patient is advised to get the blood work done (2) Hyperventilation syndrome: Comment: June 2019 Code(s): F45.8 - Other somatoform disorders Plan: Continue to follow-up with Neurology as well as anxiety medication. (3) Paroxysmal supraventricular tachycardia: Comment: November 2014 Dr. Elkins [facility] cardiac MRI 2017 echo 60-65% mild MR January [address] Broderick and [place] Dr. Ramey April 2019 cardiac MRI ejection fraction 57% normal echocardiogram October 2021 ejection fraction 45-50% Code(s): I47.1 - Supraventricular tachycardia Plan: Patient follows up with Cardiology and on the loop recorder. Patient will be fo llow-up with cardiology patient has been advised. Keep regular activity so that we would know what triggers the heart but she will discuss this with Cardiology. (4) Generalized anxiety disorder: Comment: Panic attacks. counselling private- DR. Garcia. Code(s): F41.1 - Generalized anxiety disorder Plan: Continue with counseling and therapy (5) Blood pressure elevated without history of HTN: Code(s): R03.0 - Elevated blood-pressure reading, without diagnosis of hypertension Plan: Advised to monitor blood pressure Coding Level of Care Code Tele Est Pt Level 4 (80728) Diagnoses Hypercholesterolemia E78.00 Hyperventilation syndrome F45.8 Paroxysmal supraventricular tachycardia I47.1 Generalized anxiety disorder F41.1 Blood pressure elevated without history of HTN R03.0
== END 2023-04-24 11:59 | disposition home or self-care (01) ==
LOC: HO.HMGH 10:43
PROVIDERS: PCP Internal Medicine; Visit Provider Internal Medicine
DX: E78.00 Pure hypercholesterolemia, unspecified (principal); F45.8 Other somatoform disorders; I47.10 Supraventricular tachycardia, unspecified; F41.1 Generalized anxiety disorder; R03.0 Elevated blood-pressure reading, without diagnosis of hypertension
CPT/HCPCS: 99443

== ENCOUNTER → 2023-04-26 10:55 | Outpatient (REF) | payer MEDICARE, SELFPAY ==
--- NOTE | 2023-04-26 11:00 | CA_ITS ---
Transthoracic Echocardiogram Patient (Last, First, Middle): Catherine Snider E Gender: Female Date of : 1960 Age: 62 Procedure Date: 04/26/2023 Procedure Type: Transthoracic Echocardiogram Location: OP Height: 160.02 cm Weight: 68.04 kg BSA: 1.71 m2 Heart Rate: bpm BP: 128 / 80 mmHg Labor Utilization Superintendent: ALFREDITO Referring MD: Ta Okeefe PA-C Animal Care Assistant: Dannie Lacey MD Symptoms: I47.20 VENTRICULAR TACHYCARDIA Study Quality: Fair ECG Rhythm: Sinus with extra beats Conclusions: - 1. Normal LV ejection fraction of 55-60% with impaired relaxation filling pattern 2. Normal cardiac valvular Doppler 3. Normal RV systolic pressure 4. No gross pericardial effusion Findings Left Ventricle Normal left ventricular size, thickness, and systolic function. The visually estimated ejection fraction is between 55-60%. Spectral Doppler is indicative of an impaired relaxation filling pattern. E/E prime ratio is between 8 and 15 consistent with indeterminate filling pressures. Right Ventricle Normal right ventricular cavity size and systolic function. Atria Both atria are normal in size. Interatrial shunt cannot be excluded. Aortic Valve The aortic valve structure and function is likely normal. There is no aortic valve stenosis. There is no aortic valve regurgitation. Mitral Valve Normal mitral valve structure and function. There is no mitral valve regurgitation. There is no mitral valve stenosis. Pulmonic Valve The pulmonic valve was not well visualized. Tricuspid Valve Likely normal tricuspid valve structure and function. There is trace tricuspid valve regurgitation. The right ventricular systolic pressure is normal. The right ventricular systolic pressure is 19 mmHg. Normal right atrial pressure. There is no evidence of pulmonary hypertension. Great Vessels All visible segments of the aorta are normal in size. The pulmonary artery was not well visualized. There is no dilatation of the ascending aorta measuring 2.60 cm. Venous The inferior vena cava is normal in size and collapses greater than 50% with inspiration. Pericardium/Pleural There is no evidence of pericardial effusion. Measurements 2D Linear Measurements IVSd: 0.84 0.6-0.9/0.6-1.0 cm LVIDd: 4.55 3.9-5.3/4.2-5.9 cm LVIDd Index: 2.66 2.4-3.2/2.2-3.1 cm/m2 LVIDs: 3.06 2.0-3.6 cm LVPWd: 0.89 0.7-1.1 cm Ao Root: 2.60 2.1-3.5 cm LA Diam: 2.90 2.7-3.8/3.0-4.0 cm LAIDs Index: 1.70 1.5-2.3 cm/m2 LV Mass: 158.39 67-162/88-224 g LV Mass Index: 92.62 43-95/49-115 g/m2 LVOT Diam: 2.00 3.0+(-)1.3 cm 2D Systolic Function EF 4C: 50.40 >55% EF 2C: 64.60 >55% EF BiP: 58.90 >55% Mitral Valve MV Pk E: 0.54 MV PK A: 0.76 MV Decel Time: 288.00 E/A: 0.70 E'Lateral: 4.57 E'Medial: 5.44 E/E' Med: 9.90 E/E' Lat: 11.70 PHT: 84.00 MVA PHT: 2.62 Decel [place]: 1.86 Aortic Valve AoV Pk Saran: 1.17 AoV Mn Saran: 0.75 AoV VTI: 0.34 AoV Pk Grad: 5.00 Aov Mn Grad: 3.00 ADILSON Cont.VTI: 1.26 LVOT LVOT Pk Saran: 0.50 LVOT Mn Saran: 0.32 LVOT VTI: 0.14 LVOT Pk Grad: 1.00 LVOT Mn Grad: 1.00 LVOT Diam: 2.00 LVOT Area: 3.14 Diastolic Function MV Pk E: 0.54 MV Pk A: 0.76 E/A: 0.70 E'Medial: 5.44 E/E' Med: 9.90 E' Laterial: 4.57 E/E' Lat: 11.70 Right Ventricle TAPSE (mm): 26.00 TVS' Saran: 11.00 Tricuspid Valve TR Pk Saran: 2.02 TR Pk Grad: 16.00 RA Press: 3.00 RVSP: 19.00 Great Vessels Aorta Ao Root-2D: 2.60 2.0-3.7 cm Ao Asc: 2.60 2.1-3.4 cm Pulmonary Valve PV Pk Saran: 0.81 Peak PV Grad: 3.00 Updated in Other Vendor System with Status of Final Dannie Lacey MD electronically signed on 04/27/2023 4:02:05 PM with status of Final
== END ==
LOC: HO.CARD 10:55
PROVIDERS: PCP Internal Medicine; Visit Provider Physician Assistant Medical
DX: I47.20 Ventricular tachycardia, unspecified (principal)
CPT/HCPCS: 93306

== ENCOUNTER → 2023-04-26 11:00 | Outpatient (BNV) | payer MEDICARE, SELFPAY | PROVIDERS: PCP Internal Medicine; Visit Provider Internal Medicine Cardiovascular Disease | DX: I47.20 Ventricular tachycardia, unspecified (principal) | CPT/HCPCS: 93306 ==

== ENCOUNTER 2023-06-07 12:49 | Outpatient (AMB) | payer MEDICARE, SELFPAY ==
[2023-06-07 12:59] VITALS: BP 132/70; BMI 26.6
--- NOTE | 2023-06-07 12:59 | MHC.PC.OV ---
Vital Signs 06/07/23 12:59 Height 5 ft 3 in Weight 150 lb 0.4 oz BMI 26.6 BP 132/70 Blood Pressure Location Lt brachial Position Sitting Pulse Source Pulse Oximeter Oxygen Delivery Method Room Air Comment pt refused Pulse/O2 Intake Visit Reasons: Blood in stool Project Development Leader Required: No Allergies Iodinated Contrast Media [IV CONTRAST] Allergy (Intermediate, Verified 06/07/23 12:59) PERIORBITAL SWELLING ciprofloxacin [From CIPRO] Allergy (Unknown, Verified 06/07/23 12:59) Nausea iodine Allergy (Unknown, Verified 06/07/23 12:59) from the CTSCAn had sweling periorbital metronidazole [Flagyl] Allergy (Unknown, Verified 06/07/23 12:59) headaches Sulfa (Sulfonamide Antibiotics) Allergy (Unknown, Verified 06/07/23 12:59) headache, severe migraine sulfamethoxazole [From BACTRIM] Allergy (Unknown, Verified 06/07/23 12:59) HEADACHE trimethoprim [From BACTRIM] Allergy (Unknown, Verified 06/07/23 12:59) HEADACHE Medication List - Last Reconciled 06/07/23 by Andre Tipton MD hydrocortisone 2.5% (Proctosol HC) 1 appl VT BID-QID PRN lorazepam 0.5 mg PO BID-TID PRN metoprolol tartrate 12.5 mg PO BID PRN Tobacco use date assessed: 06/07/23 Dental Screening Dental Screen Date: 04/24/23 HPI Blood in stool HPI Details 63-year-old coming in for an acute problem. Has a history of PSVT generalized anxiety disorder hyperventilation hypercholesterolemia last colonoscopy was done in May 2021 found to have tubular adenoma. Review of the notes in May 2023 ER visit complaining of left-sided abdominal pain had a CT scan of the abdomen results showing no evidence of small and large bowel inflammation has diverticular disease has cholelithiasis without cholecystitis. Diagnosis constipation. Patient also had an echocardiogram in April 2023 Normal LV ejection fraction of 55-60% with impaired relaxation filling pattern 2. Normal cardiac valvular Doppler 3. Normal RV systolic pressure 4. No gross pericardial effusion complains of having pain diccuse, statess stressed due to son at home . patient did call the [facility] and scheduled to see in August 2023 [facility] Medical History (Reviewed 01/17/23 @ 13:58 by CATHY Agrawal Hyperventilation syndrome Diverticular disease Mitral valve prolapse Vitamin D deficiency Hypercholesterolemia Polycystic ovaries Paroxysmal supraventricular tachycardia Surgical History History of colonoscopy History of polycystic ovaries S/P colon resection History of lymph node excision History of cardiac radiofrequency ablation Family History Father Myocardial infarction CVD (cardiovascular disease) Hypertension Mother CHF (congestive heart failure) Hypertension CAD (coronary artery disease) Maternal Grandfather Brain tumor Brother No problems noted. Sister No problems noted. Son No problems noted. Social History Housing: House Alcohol intake: never Patient Tobacco Use Status: Never used Tobacco e-Cigarette/Vaping Use: Never Used Second Hand Smoke Exposure: No service: No Current occupational status: unemployed Cognitive needs: No Hearing needs: No Vision needs: Yes (reading glasses) Questionnaire Thrive Questionnaire Date Thrive assessed: 04/24/23 AUDIT C Alcohol Use Questionnaire (AUDIT-C) 1. How often do you have a drink containing alcohol?: Never Total Score: 0 CHANELL-7 AMB Questionnaire CHANELL-7 Date CHANELL - 7 assessed: 04/24/23 Source: Developed by Drs. Ta Redding, Arleen Mckeon, Santosh Rodriguez and colleagues, with an educational donna from [employer]. Physical exam (Primary Care) Vital Signs: Last Vital Signs BP 132/70 06/07/23 12:59 Oxygen Delivery Method Room Air 06/07/23 12:59 BMI result Body Mass Index 26.6 Tobacco/Smoking Status: Tobacco use Status Tobacco use date assessed 06/07/23 06/07/23 12:59 Patient Tobacco Use Status Never used Tobacco 06/07/23 12:59 e-Cigarette/Vaping Use Never Used 06/07/23 12:59 Thrive Assessment: Date of Thrive Assessment Date Thrive assessed 04/24/23 06/07/23 12:59 Const General: alert; No acute distress Eyes Conjunctivae: conjunctivae normal Resp Auscultation: clear to auscultation bilaterally Cardio Rate: regular rate Rhythm: regular rhythm GI Inspection: Yes normal to inspection Extrem General: Yes normal to inspection and No edema Assessment and Plan Assessment & Plan (1) Constipation: Code(s): K59.00 - Constipation, unspecified Plan: Three rules for constipation 1. Diet need to have a high fiber diet less of meat 2. Increase oral fluids 3. Exercise (2) Paroxysmal supraventricular tachycardia: Comment: November 2014 Dr. Elkins [facility] cardiac MRI 2018 echo 60-65% mild MR January [address] Broderick and [place] Dr. Ramey April 2019 cardiac MRI ejection fraction 57% normal echocardiogram October 2021 ejection fraction 45-50% Code(s): I47.1 - Supraventricular tachycardia Plan: Echocardiogram done within normal limits. (3) Generalized anxiety disorder: Comment: Panic attacks. counselling private- DR. Garcia. Code(s): F41.1 - Generalized anxiety disorder Plan: Continue with counseling and therapy. (4) Rectal bleed: Code(s): K62.5 - Hemorrhage of anus and rectum Plan: proctosol sent in and [facility] 08/2023 Medications: New hydrocortisone 2.5% (Proctosol HC) 1 appl VT BID-QID PRN 30 grams 0RF hemorrhoids K59.00 - Constipation, unspecified Coding Level of Care Code Est Pt Level 4 (64363) Diagnoses Constipation K59.00 Paroxysmal supraventricular tachycardia I47.1 Generalized anxiety disorder F41.1 Rectal bleed K62.5
== END 2023-06-07 14:28 | disposition home or self-care (01) ==
PROVIDERS: PCP Internal Medicine; Visit Provider Internal Medicine
DX: K59.00 Constipation, unspecified (principal); I47.10 Supraventricular tachycardia, unspecified; F41.1 Generalized anxiety disorder; K62.5 Hemorrhage of anus and rectum
CPT/HCPCS: 99214

== ENCOUNTER 2023-07-26 13:09 | Outpatient (AMB) | payer MEDICARE, SELFPAY ==
[2023-07-26 13:12] VITALS: BMI 26.9
--- NOTE | 2023-07-26 13:12 | MHC.PC.OV ---
Vital Signs 07/26/23 13:12 Height 5 ft 3 in Weight 152 lb BMI 26.9 Blood Pressure Location Lt brachial Position Sitting Pulse Source Pulse Oximeter Oxygen Delivery Method Room Air Intake Visit Reasons: PSVT Intake Note: Could not really get vitals, was crying and upset about situation going on with her son. BP was coming out high, but again she was crying. Allergies Iodinated Contrast Media [IV CONTRAST] Allergy (Intermediate, Verified 07/26/23 13:12) PERIORBITAL SWELLING ciprofloxacin [From CIPRO] Allergy (Unknown, Verified 07/26/23 13:12) Nausea iodine Allergy (Unknown, Verified 07/26/23 13:12) from the CTSCAn had sweling periorbital metronidazole [Flagyl] Allergy (Unknown, Verified 07/26/23 13:12) headaches Sulfa (Sulfonamide Antibiotics) Allergy (Unknown, Verified 07/26/23 13:12) headache, severe migraine sulfamethoxazole [From BACTRIM] Allergy (Unknown, Verified 07/26/23 13:12) HEADACHE trimethoprim [From BACTRIM] Allergy (Unknown, Verified 07/26/23 13:12) HEADACHE Tobacco use date assessed: 06/07/23 Dental Screening Dental Screen Date: 04/24/23 HPI PSVT HPI Details 63-year-old female with PSVT generalized anxiety disorder and constipation last seen in June 2023. Patient is up-to-date with colonoscopy May 2021 5 years mammogram December 2022. Patient has been advised to get blood work done but this was not done. went for dicussion regarding son having change in personality after father . concern on psychiatry- Nurse navigator called [facility] in office had counselling but was dropped.. advised DCF counselling. alcohol occ but no abuse, advised to get crisis/[facility] -. [facility] Medical History Hyperventilation syndrome Diverticular disease Mitral valve prolapse Vitamin D deficiency Hypercholesterolemia Polycystic ovaries Paroxysmal supraventricular tachycardia Surgical History History of colonoscopy History of polycystic ovaries S/P colon resection History of lymph node excision History of cardiac radiofrequency ablation Family History Father Myocardial infarction CVD (cardiovascular disease) Hypertension Mother CHF (congestive heart failure) Hypertension CAD (coronary artery disease) Maternal Grandfather Brain tumor Brother No problems noted. Sister No problems noted. Son No problems noted. Social History Housing: House Alcohol intake: never Patient Tobacco Use Status: Never used Tobacco e-Cigarette/Vaping Use: Never Used Second Hand Smoke Exposure: No service: No Current occupational status: unemployed Cognitive needs: No Hearing needs: No Vision needs: Yes (reading glasses) Questionnaire PHQ-9 Over the last 2 weeks, how often have you been bothered by any of the following problems? 1. Little interest or pleasure in doing things: more than half the days 2. Feeling down, depressed, or hopeless: more than half the days 3. Trouble falling or staying asleep, or sleeping too much: nearly every day (staying asleep) 4. Feeling tired or having little energy: nearly every day 5. Poor appetite or overeating: nearly every day (over eating) 6. Feeling bad about yourself - or that you are a failure or have let yourself or your family down: several days 7. Trouble concentrating on things, such as reading the newspaper or watching television: not at all 8. Moving or speaking so slowly that other people could have noticed. Or the opposite - being so fidgety or restless that you have been moving around a lot more than usual: not at all 9. Thoughts that you would be better off or of hurting yourself in some way: not at all Total score: 14 Depression Screening Interpretation: Positive Depression Screening Done: Yes Source: Developed by Drs. Ta Redding, Arleen Mckeon, Santosh Rodriguez and colleagues, with an educational donna from [employer]. Thrive Questionnaire Date Thrive assessed: 04/24/23 AUDIT C Alcohol Use Questionnaire (AUDIT-C) 1. How often do you have a drink containing alcohol?: Never Total Score: 0 CHANELL-7 AMB Questionnaire CHANELL-7 Date CHANELL - 7 assessed: 07/26/23 Feeling nervous, anxious, or on edge: 2 = More than half the days Not being able to stop or control worryin = More than half the days Worrying too much about different things: 2 = More than half the days Trouble relaxin = More than half the days Being so restless that it is hard to sit still: 2 = More than half the days Becoming easily annoyed or irritable: 2 = More than half the days Feeling afraid as if something awful might happen: 2 = More than half the days Total CHANELL-7 score (0-4 normal; 5-9 mild; 10-14 moderate; 15-21 severe): 14 Source: Developed by Drs. Ta Redding, Arleen Mckeon, Santosh Rodriguez and colleagues, with an educational donna from [employer]. Physical exam (Primary Care) Vital Signs: Oxygen Delivery Method Room Air 07/26/23 13:12 BMI result Body Mass Index 26.9 Tobacco/Smoking Status: Tobacco use Status Tobacco use date assessed 06/07/23 07/26/23 13:14 Patient Tobacco Use Status Never used Tobacco 07/26/23 13:14 e-Cigarette/Vaping Use Never Used 07/26/23 13:14 PHQ-9: PHQ-9 Score PHQ-9: Total score 14 07/26/23 13:37 Depression Screening Interpretation: Positive Thrive Assessment: Date of Thrive Assessment Date Thrive assessed 04/24/23 07/26/23 13:14 Const General: alert; No acute distress Eyes Conjunctivae: conjunctivae normal Resp Auscultation: clear to auscultation bilaterally Cardio Rate: regular rate Rhythm: regular rhythm GI Inspection: Yes normal to inspection Extrem General: Yes normal to inspection and No edema Assessment and Plan Assessment & Plan (1) Hypercholesterolemia: Code(s): E78.00 - Pure hypercholesterolemia, unspecified Plan: Avoid fried foods, chicken skin, eggs, butter margarine, pastries and meat. Be it pork or beef they have a lot of cholesterol patient was advised to get blood work done (2) Paroxysmal supraventricular tachycardia: Comment: November 2014 Dr. Elkins [facility] cardiac MRI 2017 echo 60-65% mild MR January [address] Broderick and [place] Dr. Ramey April 2019 cardiac MRI ejection fraction 57% normal echocardiogram October 2021 ejection fraction 45-50% Code(s): I47.1 - Supraventricular tachycardia Plan: On metoprolol and continue to monitor (3) Generalized anxiety disorder: Comment: Panic attacks. counselling private- DR. Garcia. Code(s): F41.1 - Generalized anxiety disorder Plan: Continue with counseling and therapy (4) Overweight: Code(s): E66.3 - Overweight Orders: Referrals Medical Nutrition Therapy Referral E66.3 - Overweight Coding Level of Care Code Est Pt Level 4 (01309) Diagnoses Hypercholesterolemia E78.00 Paroxysmal supraventricular tachycardia I47.1 Generalized anxiety disorder F41.1 Overweight E66.3
== END 2023-07-26 14:14 | disposition home or self-care (01) ==
LOC: HO.HMGH 13:09
PROVIDERS: PCP Internal Medicine; Visit Provider Internal Medicine
DX: E78.00 Pure hypercholesterolemia, unspecified (principal); I47.10 Supraventricular tachycardia, unspecified; F41.1 Generalized anxiety disorder; E66.3 Overweight
CPT/HCPCS: 99214

== ENCOUNTER 2023-08-08 06:55 | Outpatient (REF) | payer MEDICARE, SELFPAY ==
[2023-08-08 07:10] LABS: MANUAL DIFF FLAG NO
[2023-08-08 08:06] LABS: Basophils Absolute Auto 0.1 X10*3/uL (0.0-0.2); Eosinophils Absolute Auto 0.3 X10*3/uL (0.0-0.4); Eosinophils Percent Auto 4.7 % (0-4); Hematocrit 44.4 % (37.0-47.0); Hemoglobin 15.5 g/dl (12.0-16.0); Imm Gran Abs Auto 0.02 X10*3/uL (0.00-0.03); Imm Gran Pct Auto 0.3 % (0.0-0.4); Lymphocytes Absolute Auto 1.8 X10*3/uL (1.2-4.9); Lymphocytes Percent Auto 29.5 % (20-40); Mean Corpuscular HGB Conc 34.9 g/dl (31.0-35.0); Mean Corpuscular Hemoglobin 32.3 pg (27.0-33.0); Mean Corpuscular Volume 92.5 fL (80.0-98.0); Mean Platelet Volume 9.5 fL (9.4-12.3); Monocytes Absolute Auto 0.4 X10*3/uL (0.1-1.2); Neutrophils Absolute Auto 3.4 x10*3/uL (2.0-8.3); Neutrophils Percent Auto 57.5 % (45-73); Platelet Count 281 X10*3/uL (160-400); Red Cell Distribution Width 12.9 % (11.0-16.0)
[2023-08-08 09:05] LABS: Alanine Aminotransferase 14 U/L (0-31); Albumin Level 4.3 g/dL (3.5-5.0); Alkaline Phosphatase 86 U/L (39-117); Anion Gap 13 (12-20); Aspartate Amino Transferase 17 U/L (5-31); Bilirubin Total 0.5 mg/dL (0.0-1.0); Blood Urea Nitrogen 25 mg/dL (9-16); Carbon Dioxide 24 mmol/L (22-29); Chloride 108 mmol/L (96-108); Cholesterol 229 mg/dL (<200); Estimated Glomerular Filt Rate > 60; Free T4 (Free Thyroxine) 0.88 ng/dL (0.71-1.85); Glucose Random 96 mg/dL (60-115); HDL Cholesterol 72 mg/dL (>40); LDL Cholesterol Calculated 137 mg/dL (<100); Potassium 4.4 mmol/L (3.3-5.1); Sodium 141 mmol/L (135-145); Total Protein 7.5 g/dL (6.5-8.0); Triglycerides 101 mg/dL (<150); Vitamin D 25-OH Total 28.2 ng/mL (>30)
[2023-08-08 09:12] LABS: Folate 4.9 ng/mL (> or = 4.0); Vitamin B12 395 pg/mL (200-900)
== END 2023-08-08 06:56 | disposition home or self-care (01) ==
LOC: HO.LAB 06:55
PROVIDERS: PCP Internal Medicine; Visit Provider Internal Medicine
DX: E78.00 Pure hypercholesterolemia, unspecified (principal)
CPT/HCPCS: 36415; 80053; 80061; 82306; 82607; 82746; 84439; 84443; 85025

== ENCOUNTER 2023-12-08 11:00 | Outpatient (AMB) | payer MEDICARE, SELFPAY ==
[2023-12-08 11:01] VITALS: BP 132/74; PULSE 61; O2SAT 96; BMI 27.5
--- NOTE | 2023-12-08 11:01 | A.OFFPC_ITS ---
Vital Signs 12/08/23 11:01 Height 5 ft 3 in Weight 155 lb BMI 27.5 BP 132/74 Blood Pressure Location Lt brachial Position Sitting Pulse 61 Pulse Source Pulse Oximeter Pulse Oximetry (%) 96 Oxygen Delivery Method Room Air Intake Visit Reasons: CHANELL Cad Intern Required: No Accompanied by: Self / Same As Patient Allergies Iodinated Contrast Media [IV CONTRAST] Allergy (Intermediate, Verified 12/08/23 11:05) PERIORBITAL SWELLING ciprofloxacin [From CIPRO] Allergy (Unknown, Verified 12/08/23 11:05) Nausea iodine Allergy (Unknown, Verified 12/08/23 11:05) from the CTSCAn had sweling periorbital metronidazole [Flagyl] Allergy (Unknown, Verified 12/08/23 11:05) headaches Sulfa (Sulfonamide Antibiotics) Allergy (Unknown, Verified 12/08/23 11:05) headache, severe migraine sulfamethoxazole [From BACTRIM] Allergy (Unknown, Verified 12/08/23 11:05) HEADACHE trimethoprim [From BACTRIM] Allergy (Unknown, Verified 12/08/23 11:05) HEADACHE Tobacco use date assessed: 06/07/23 Dental Screening Dental Screen Date: 04/24/23 HPI CHANELL HPI Details 63-year-old overweight female with a his tory of generalized anxiety disorder SVT hypercholesterolemia last seen in July 2023. Patient is up-to-date with colonoscopy 10/24/2023 mammogram is due. Patient had a colon test October 27 2023 with polyps(was told precancerous) noted advised to retest 3 years. Dermatology note October 11 2023 actinic keratosis, lichenoid keratosis skin tag. Patient has also seen Neurology September 27 2023 for dizziness. Diagnosis of hyperventilation syndrome better would lorazepam prescribed lorazepam 1 tablet 3-4 times a day or 2 tablets twice a day as directed was prescribed 120 tablets with 5 refills. Patient has also seen [facility] for urge and stress incontinence. FORMERLY [facility], [facility] Medical History (Updated 12/08/23 @ 18:22 by Andre Tipton MD) Hyperventilation syndrome Vitamin D deficiency LLQ pain Abdominal pain Impacted cerumen of right ear Rectal bleed Blood pressure elevated without history of HTN Breast cancer screening by mammogram Hyperventilation syndrome Diverticular disease Mitral valve prolapse Vitamin D deficiency Hypercholesterolemia Polycystic ovaries Paroxysmal supraventricular tachycardia Surgical History History of colonoscopy History of polycystic ovaries S/P colon resection History of lymph node excision History of cardiac radiofrequency ablation Family History Father Myocardial infarction CVD (cardiovascular disease) Hypertension Mother CHF (congestive heart failure) Hypertension CAD (coronary artery disease) Maternal Grandfather Brain tumor Brother No problems noted. Sister No problems noted. Son No problems noted. Social History Housing: House Alcohol intake: never Patient Tobacco Use Status: Never used Tobacco Tobacco use type: Cigarette e-Cigarette/Vaping Use: Never Used Second Hand Smoke Exposure: No service: No Current occupational status: unemployed Cognitive needs: No Hearing needs: No Vision needs: Yes (reading glasses) Questionnaire PHQ-9 Over the last 2 weeks, how often have you been bothered by any of the following problems? 1. Little interest or pleasure in doing things: more than half the days 2. Feeling down, depressed, or hopeless: more than half the days 3. Trouble falling or staying asleep, or sleeping too much: nearly every day (staying asleep) 4. Feeling tired or having little energy: nearly every day 5. Poor appetite or overeating: nearly every day (over eating) 6. Feeling bad about yourself - or that you are a failure or have let yourself or your family down: several days 7. Trouble concentrating on things, such as reading the newspaper or watching television: not at all 8. Moving or speaking so slowly that other people could have noticed. Or the opposite - being so fidgety or restless that you have been moving around a lot more than usual: not at all 9. Thoughts that you would be better off or of hurting yourself in some way: not at all Total score: 14 Depression Screening Interpretation: Positive Depression Screening Done: Yes Source: Developed by Drs. Ta Redding, Arleen Mckeon, Santosh Rodriguez and colleagues, with an educational donna from [employer]. Thrive Questionnaire Date Thrive assessed: 04/24/23 Are you currently unemployed and looking for a job?: No AUDIT C Alcohol Use Questionnaire (AUDIT-C) 1. How often do you have a drink containing alcohol?: Never Total Score: 0 CHANELL-7 AMB Questionnaire CHANELL-7 Date CHANELL - 7 assessed: 07/26/23 Source: Developed by Drs. Ta Redding, Arleen Mckeon, Santosh Rodriguez and colleagues, with an educational donna from [employer]. Physical exam (Primary Care) Vital Signs: Last Vital Signs Pulse 61 12/08/23 11:01 BP 132/74 12/08/23 11:01 Pulse Ox 96 12/08/23 11:01 Oxygen Delivery Method Room Air 12/08/23 11:01 BMI result Body Mass Index 27.5 Tobacco/Smoking Status: Tobacco use Status Tobacco use date assessed 06/07/23 12/08/23 11:06 Patient Tobacco Use Status Never used Tobacco 12/08/23 11:06 Tobacco use type Cigarette 12/08/23 11:06 e-Cigarette/Vaping Use Never Used 12/08/23 11:06 PHQ-9: PHQ-9 Score PHQ-9: Total score 14 12/08/23 11:12 Depression Screening Interpretation: Positive Thrive Assessment: Date of Thrive Assessment Date Thrive assessed 04/24/23 12/08/23 11:06 Const General: alert; No acute distress Eyes Conjunctivae: conjunctivae normal Resp Auscultation: clear to auscultation bilaterally Cardio Rate: regular rate Rhythm: regular rhythm GI Inspection: Yes normal to inspection Extrem General: Yes normal to inspection and No edema Coding Level of Care Code Est Pt Level 4 (86155) Diagnoses Hyperventilation syndrome F45.8 Hypercholesterolemia E78.00 Paroxysmal supraventricular tachycardia I47.1 Mixed stress and urge urinary incontinence N39.46 Tubular adenoma of colon D12.6 Generalized anxiety disorder F41.1 Mixed incontinence urge and stress N39.46 Calculus of gallbladder without cholecystitis without obstruction K80.20 Cholelithiasis location: gallbladder Cholecystitis presence: without cholecystitis Biliary obstruction: without biliary obstruction Assessment & Plan Assessment & Plan (1) Hyperventilation syndrome: Comment: June 2019 Code(s): F45.8 - Other somatoform disorders Category: Medical Plan: Patient has met with the Neurology and stress mitigation techniques advised. lorazepam prescribed 1 tab QID prn (prescribed 120 tabs) (2) Hypercholesterolemia: Code(s): E78.00 - Pure hypercholesterolemia, unspecified Category: Medical Plan: Avoid fried foods, chicken skin, eggs, butter margarine, pastries and meat. Be it pork or beef they have a lot of cholesterol LDL goal of less than 130 and triglyceride of less than 150 (3) Paroxysmal supraventricular tachycardia: Comment: November 2014 Dr. Elkins [facility] cardiac MRI 2017 echo 60-65% mild MR January [address] Broderick and [place] Dr[address] Ramey April 2019 cardiac MRI ejection fraction 57% normal echocardiogram October 2021 ejection fraction 45-50% Code(s): I47.1 - Supraventricular tachycardia Category: Medical Plan: Patient continues to follow-up with cardiology advised to get Cardiac MRI and stress test- [facility] (4) Mixed stress and urge urinary incontinence: Comment: Timed voiding meaning every 1-2 hours even if you do not feel like urinating empty the bladder, avoid drinks with high sweet content like juices or caffeine that makes her urinate, 2 hours before you sleep hold liquids so that in the morning you do not get the bladder to be too full. Code(s): N39.46 - Mixed incontinence Category: Medical Plan: Patient has seen Urology and being followed by this. (5) Tubular adenoma of colon: Comment: 10/2023 Code(s): D12.6 - Benign neoplasm of colon, unspecified Category: Medical Plan: Patient just had colonoscopy done. (6) Generalized anxiety disorder: Comment: Panic attacks. counselling private- DR. Garcia. Code(s): F41.1 - Generalized anxiety disorder Category: Medical Plan: Continue with counseling and therapy. (7) Mixed incontinence urge and stress: Code(s): N39.46 - Mixed incontinence Category: Medical Plan: was told kegel exercises (8) Cholelithiasis: Code(s): K80.20 - Calculus of gallbladder without cholecystitis without obstruction Category: Medical Qualifiers: Cholelithiasis location: gallbladder Cholecystitis presence: without cholecystitis Biliary obstruction: without biliary obstruction Qualified Code(s): K80.20 - Calculus of gallbladder without cholecystitis without obstruction Plan: low fat diet
== END 2023-12-08 11:39 | disposition home or self-care (01) ==
PROVIDERS: PCP Internal Medicine; Visit Provider Internal Medicine
DX: F45.8 Other somatoform disorders (principal); E78.00 Pure hypercholesterolemia, unspecified; I47.10 Supraventricular tachycardia, unspecified; N39.46 Mixed incontinence; D12.6 Benign neoplasm of colon, unspecified; F41.1 Generalized anxiety disorder; K80.20 Calculus of gallbladder without cholecystitis without obstruction

== ENCOUNTER → 2023-12-08 11:00 | Outpatient (BNVA) | payer MEDICARE, SELFPAY | PROVIDERS: PCP Internal Medicine; Visit Provider Internal Medicine | DX: F45.8 Other somatoform disorders (principal); E78.00 Pure hypercholesterolemia, unspecified; I47.10 Supraventricular tachycardia, unspecified; N39.46 Mixed incontinence; D21.6 Benign neoplasm of connective and other soft tissue of trunk, unspecified; F41.1 Generalized anxiety disorder; K80.20 Calculus of gallbladder without cholecystitis without obstruction | CPT/HCPCS: 96127; 99212 ==

== ENCOUNTER 2024-01-19 10:26 | Outpatient (AMB) | payer MEDICARE, SELFPAY ==
[2024-01-19 10:27] VITALS: BP 134/76; PULSE 70; O2SAT 98; BMI 28.3
--- NOTE | 2024-01-19 10:27 | MHC.PC.OV ---
Vital Signs 01/19/24 10:27 Height 5 ft 3 in Weight 160 lb BMI 28.3 BP 134/76 Blood Pressure Location Lt brachial Position Sitting Pulse 70 Pulse Source Pulse Oximeter Pulse Oximetry (%) 98 Oxygen Delivery Method Room Air Intake Visit Reasons: annual exam Allergies Iodinated Contrast Media [IV CONTRAST] Allergy (Intermediate, Verified 01/19/24 10:46) PERIORBITAL SWELLING ciprofloxacin [From CIPRO] Allergy (Unknown, Verified 01/19/24 10:46) Nausea iodine Allergy (Unknown, Verified 01/19/24 10:46) from the CTSCAn had sweling periorbital metronidazole [Flagyl] Allergy (Unknown, Verified 01/19/24 10:46) headaches Sulfa (Sulfonamide Antibiotics) Allergy (Unknown, Verified 01/19/24 10:46) headache, severe migraine sulfamethoxazole [From BACTRIM] Allergy (Unknown, Verified 01/19/24 10:46) HEADACHE trimethoprim [From BACTRIM] Allergy (Unknown, Verified 01/19/24 10:46) HEADACHE Medication List - Last Reconciled 01/19/24 by Ana Barba PA-C hydrocortisone 2.5% (Proctosol HC) 1 appl IN BID-QID PRN lorazepam 0.5 mg orally TID or 4x a day or( 2tabs Twice a day) as directed PRN; metoprolol tartrate 12.5 mg PO BID PRN Tobacco use date assessed: 06/07/23 Dental Screening Dental Screen Date: 01/19/24 Did you have a dental visit in the last 12 months?: Yes Did you have a dental problem in the last 6 months where you did not have access to dental care?: No Was dental information given to patient?: Patient has dentist HPI annual exam HPI Details 63-year-old overweight female with a history of generalized anxiety disorder, SVT, hypercholesterolemia, last seen in December 2023 coming in for annual exam. In review of the notes, patient was seen by Cardiology 12/14/2023 stable on current medication and follow up in 6 months. Patient was seen by loft rigger and scheduled for stress test and cardiac MRI. She was started on metoprolol succinate and has not yet started this medication. She does mentioned she has been struggling with anxiety and depression regarding family stress and is working with her therapist. She has a mammogram scheduled for February 2024 and recently completed her colonoscopy. [facility] Medical History Hyperventilation syndrome Vitamin D deficiency LLQ pain Abdominal pain Impacted cerumen of right ear Rectal bleed Blood pressure elevated without history of HTN Breast cancer screening by mammogram Hyperventilation syndrome Diverticular disease Mitral valve prolapse Vitamin D deficiency Hypercholesterolemia Polycystic ovaries Paroxysmal supraventricular tachycardia Surgical History History of colonoscopy History of polycystic ovaries S/P colon resection History of lymph node excision History of cardiac radiofrequency ablation Family History Father Myocardial infarction CVD (cardiovascular disease) Hypertension Mother CHF (congestive heart failure) Hypertension CAD (coronary artery disease) Maternal Grandfather Brain tumor Brother No problems noted. Sister No problems noted. Son No problems noted. Social History Housing: House Alcohol intake: never Patient Tobacco Use Status: Never used Tobacco Tobacco use type: Cigarette e-Cigarette/Vaping Use: Never Used Second Hand Smoke Exposure: No service: No Current occupational status: unemployed Cognitive needs: No Hearing needs: No Vision needs: Yes (reading glasses) Questionnaire Thrive Questionnaire Date Thrive assessed: 01/19/24 I am a: Patient Are you currently unemployed and looking for a job?: No AUDIT C Alcohol Use Questionnaire (AUDIT-C) 1. How often do you have a drink containing alcohol?: Never 3. How often do you have six or more drinks on one occasion?: Never Total Score: 0 CHANELL-7 AMB Questionnaire CHANELL-7 Date CHANELL - 7 assessed: 07/26/23 Feeling nervous, anxious, or on edge: 0 = Not at all Not being able to stop or control worryin = Not at all Worrying too much about different things: 0 = Not at all Trouble relaxin = Not at all Being so restless that it is hard to sit still: 0 = Not at all Becoming easily annoyed or irritable: 0 = Not at all Feeling afraid as if something awful might happen: 0 = Not at all Total CHANELL-7 score (0-4 normal; 5-9 mild; 10-14 moderate; 15-21 severe): 0 Source: Developed by Drs. Ta Redding, Arleen Mckeon, Santosh Rodriguez and colleagues, with an educational donna from [employer] CHANELL-7 Assessment Billing CHANELL-7 Assessment Tool: CHANELL-7 Assessment 35133 Review of Systems Const Denies body aches, Denies chills, Denies fever(s), Denies headache(s) and Denies poor appetite Eyes Reports no additional complaints ENT Denies dysphagia, Denies dizziness, Denies headache(s) and Denies odynophagia Card Denies chest pain, Denies syncope, Denies edema, Denies irregular heart rhythm, Denies lightheadedness and Denies dyspnea Resp Denies cough and Denies dyspnea GI Denies abdominal pain, Denies constipation, Denies dysphagia, Denies diarrhea, Denies nausea, Denies odynophagia and Denies vomiting Reports no additional complaints Musc Reports no additional complaints and Denies abnormal gait Skin/Breast Reports system reviewed and no additional complaints, except as documented Neuro Denies abnormal gait, Denies dizziness, Denies syncope and Denies headache(s) Psych Reports no additional complaints Physical exam (Primary Care) Vital Signs: Last Vital Signs Pulse 70 01/19/24 10:27 BP 134/76 01/19/24 10:27 Pulse Ox 98 01/19/24 10:27 Oxygen Delivery Method Room Air 01/19/24 10:27 BMI result Body Mass Index 28.3 Tobacco/Smoking Status: Tobacco use Status Tobacco use date assessed 06/07/23 01/19/24 10:32 Patient Tobacco Use Status Never used Tobacco 01/19/24 10:32 Tobacco use type Cigarette 01/19/24 10:32 e-Cigarette/Vaping Use Never Used 01/19/24 10:32 Thrive Assessment: Date of Thrive Assessment Date Thrive assessed 01/19/24 01/19/24 10:32 Const General: cooperative, healthy appearing, comfortable and no acute distress Orientation/consciousness: patient oriented x3 HENMT Head: Yes normocephalic Ears: hearing grossly normal bilaterally General nose exam: Normal external nose present Eyes General: appearance normal, both eyes and all related structures Conjunctivae: conjunctivae normal Neck Neck: Yes full ROM and Yes no lymphadenopathy Resp Effort & Inspection: normal respiratory effort Auscultation: clear to auscultation bilaterally, no crackles, no rales, no rhonchi and no wheezes Cardio Rate: regular rate Rhythm: regular rhythm Skin General skin exam: no rashes or lesions noted Neuro General: patient oriented x3 Gait exam (Neuro): Normal gait present Extrem General: Yes normal to inspection, Yes full ROM and No edema Psych Affect: normal affect Attitude: cooperative Insight: Good insight present (Psych) Judgement: Good judgement present (Psych) Coding Level of Care Code New Pt Prev Care 40-64y(81081) Diagnoses Paroxysmal supraventricular tachycardia I47.1 Generalized anxiety disorder F41.1 Hypercholesterolemia E78.00 Annual physical exam Z00.00 Mixed incontinence urge and stress N39.46 Additional Codes CHANELL-7 Assessment Billing - CHANELL-7 Assessment Tool: CHANELL-7 Assessment 20949 ([id number]) Assessment & Plan Assessment & Plan (1) Paroxysmal supraventricular tachycardia: Comment: November 2014 Dr. Elkins [facility] cardiac MRI 2017 echo 60-65% mild MR January [address] Broderick and [place] Dr. Ramey April 2019 cardiac MRI ejection fraction 57% normal echocardiogram October 2021 ejection fraction 45-50% Code(s): I47.1 - Supraventricular tachycardia Category: Medical Plan: Continue to follow with Cardiology. MRI and stress test scheduled by Cardiology. Continue on metoprolol. (2) Generalized anxiety disorder: Comment: Panic attacks. counselling private- DR. Garcia. Code(s): F41.1 - Generalized anxiety disorder Category: Medical Plan: Continue on current medication regimen feels stable on this medication and is currently working with therapist. (3) Hypercholesterolemia: Code(s): E78.00 - Pure hypercholesterolemia, unspecified Category: Medical Plan: Avoid foods that are high in cholesterol such as red meat, fried foods, eggs and baked goods. Triglyceride goal of less than 150 and LDL goal of less than 130. Not currently on medical management (4) Annual physical exam: Code(s): Z00.00 - Encounter for general adult medical examination without abnormal findings Category: Medical Plan: Patient is up-to-date on all recommended routine screenings and vaccinations for her age. Colonoscopy completed and mammogram scheduled for February. Blood work is updated. (5) Mixed incontinence urge and stress: Code(s): N39.46 - Mixed incontinence Category: Medical Plan: Not currently on medical management. Doing well. Plan This note was constructed using voice recognition software. While every effort has been made to ensure accuracy and cotton inspector, still areas may have been included sometimes these areas may affect the content or meeting of the given symptoms. Total time spent caring for the patient today was 30 minutes. This includes time spent before the visit reviewing the chart, time spent during the visit, and time spent after the visit and documentation.
== END 2024-01-19 11:26 | disposition home or self-care (01) ==
PROVIDERS: PCP Internal Medicine
DX: I47.10 Supraventricular tachycardia, unspecified (principal); F41.1 Generalized anxiety disorder; E78.00 Pure hypercholesterolemia, unspecified; Z00.00 Encounter for general adult medical examination without abnormal findings; N39.46 Mixed incontinence

== ENCOUNTER → 2024-01-19 10:26 | Outpatient (BNVA) | payer MEDICARE, SELFPAY | PROVIDERS: PCP Internal Medicine | DX: Z00.00 Encounter for general adult medical examination without abnormal findings (principal); F41.1 Generalized anxiety disorder; I47.10 Supraventricular tachycardia, unspecified; E78.00 Pure hypercholesterolemia, unspecified; N39.46 Mixed incontinence | CPT/HCPCS: 96127; 99386 ==

== ENCOUNTER 2024-02-09 13:05 | Outpatient (REF) | payer MEDICARE, SELFPAY ==
--- NOTE | ~2024-02-09 | XR_ITS ---
EXAMINATION: XR KNEE, LEFT CLINICAL INFORMATION: M25.551 - Pain in right hip ; pain in bilateral knees. COMPARISON: No priors. TECHNIQUE: Three views of the left knee. FINDINGS: There is normal bony mineralization. There is no fracture, dislocation, or suspicious bone lesion. There is normal alignment. Minimal spurring of the tibial spines. Mild narrowing medial and patellofemoral compartments with small marginal osteophytic spurs. Lateral compartment is preserved. No evidence of joint effusion in the suprapatellar bursa. Soft tissues appear normal. XR/XR knee LT 3V IMPRESSION: 1. No acute findings left knee. 2. Mild osteoarthrosis in the medial and patellofemoral compartments. Electronically signed by: Hank Tate MD 02/15/2024 08:38 AM [facility]
--- NOTE | ~2024-02-09 | XR_ITS ---
EXAMINATION: XR LUMBOSACRAL SPINE CLINICAL INFORMATION: M25.551 - Pain in right hip ; back pain COMPARISON: None available. TECHNIQUE: Three views of the lumbosacral spine. FINDINGS: There is no fracture, compression deformity, or suspicious focal bony abnormality. Transitional lumbosacral anatomy noted with a partially lumbarized S1 vertebral body. If intervention is considered, would recommend verification of level counting. There is a trace levoconvex scoliosis, apex at L4. There is a normal lumbar lordosis. There is no subluxation. Mild disc degeneration noted throughout the lumbar spine. Mild facet degeneration noted at L4-S1. Soft tissues demonstrate minimal vascular calcifications. Chain sutures noted overlying the left sacrum. Oval calcification right upper quadrant, possibly gallstone. XR/XR lumbar spine 2-3V IMPRESSION: 1. Mild degenerative spondylosis of the spine. No acute findings seen. Electronically signed by: Hank Tate MD 02/15/2024 09:12 AM [facility]
--- NOTE | ~2024-02-09 | XR_ITS ---
EXAMINATION: XR KNEE, RIGHT CLINICAL INFORMATION: M25.551 - Pain in right hip COMPARISON: 12/07/2020. TECHNIQUE: Two views of the right knee. FINDINGS: Normal bone mineralization. No fracture, dislocation, or suspicious bone lesion. Normal alignment. Mild medial compartment joint space narrowing with minimal spurring. Normal lateral and patellofemoral compartments. No evidence of joint effusion in the suprapatellar region. Soft tissues appear normal. XR/XR knee RT 2V IMPRESSION: 1. No acute findings right knee. 2. Mild medial compartment osteoarthritis. Electronically signed by: Hank Tate MD 02/15/2024 08:36 AM [facility] [place] [place]
--- NOTE | ~2024-02-09 | XR_ITS ---
EXAMINATION: XR BILATERAL HIPS WITH AP PELVIS CLINICAL INFORMATION: M25.551 - Pain in right hip COMPARISON: None available. TECHNIQUE: AP and frog-leg lateral views of each hip and an AP view of the pelvis. FINDINGS: Normal bone mineralization. No fracture, dislocation, or suspicious bone lesion. Normal alignment of the hip joints. No evidence of AVN. There is minimal degenerative arthritis in the bilateral hip joints with small superolateral acetabular spurs. Hip joint spaces are preserved. Mild degenerative arthritis in both SI joints and lower lumbar spine. Soft tissues demonstrate anastomotic juan alberto overlying the left sacrum. There are otherwise normal. XR/XR hip BI w PEL1V IMPRESSION: 1. No acute findings of the pelvis or hip joints. 2. Minimal degenerative arthritis both hip joints, and mild in both SI joints. Electronically signed by: Hank Tate MD 02/15/2024 08:59 AM [facility]
== END 2024-02-09 13:06 | disposition home or self-care (01) ==
LOC: HO.XRAY 13:05
PROVIDERS: PCP Internal Medicine; Visit Provider Internal Medicine
DX: M25.551 Pain in right hip (principal); M25.552 Pain in left hip; M25.561 Pain in right knee; M25.562 Pain in left knee; E66.3 Overweight; Z68.28 Body mass index [BMI] 28.0-28.9, adult
CPT/HCPCS: 72100; 73521; 73560; 73562; 96127; 99212

== ENCOUNTER 2024-02-09 13:05 | Outpatient (AMB) | payer MEDICARE, SELFPAY ==
[2024-02-09 13:07] VITALS: BP 128/72; PULSE 80; O2SAT 98; BMI 28.5
--- NOTE | 2024-02-09 13:07 | A.OFFPC_ITS ---
Vital Signs 02/09/24 13:07 Height 5 ft 3 in Weight 161 lb BMI 28.5 BP 128/72 Blood Pressure Location Lt brachial Position Sitting Pulse 80 Pulse Source Pulse Oximeter Pulse Oximetry (%) 98 Oxygen Delivery Method Room Air Intake Visit Reasons: Aching legs Allergies Iodinated Contrast Media [IV CONTRAST] Allergy (Intermediate, Verified 02/09/24 13:07) PERIORBITAL SWELLING ciprofloxacin [From CIPRO] Allergy (Unknown, Verified 02/09/24 13:07) Nausea iodine Allergy (Unknown, Verified 02/09/24 13:07) from the CTSCAn had sweling periorbital metronidazole [Flagyl] Allergy (Unknown, Verified 02/09/24 13:07) headaches Sulfa (Sulfonamide Antibiotics) Allergy (Unknown, Verified 02/09/24 13:07) headache, severe migraine sulfamethoxazole [From BACTRIM] Allergy (Unknown, Verified 02/09/24 13:07) HEADACHE trimethoprim [From BACTRIM] Allergy (Unknown, Verified 02/09/24 13:07) HEADACHE Tobacco use date assessed: 06/07/23 Dental Screening Dental Screen Date: 01/19/24 HPI Aching legs HPI Details The patient is a 63-year-old female presenting with bilateral lower extremity pain. The pain has been ongoing for approximately one month and affects the buttocks, extending down to the knees without involving the back of the thighs. The pain is described as an aching toothache-like sensation, occurring primarily in the muscles rather than the joints. It worsens with long durations of standing and walking and is associated with stiffness in the groin area, particularly after prolonged activity. Relief is achieved through hot baths and the application of heat. The patient has a history of significant weight gain, approximately 30 pounds more than her previous weight, with current weight at 160 pounds. Despite the absence of numbness or pins and needles sensations, the pain leads to considerable discomfort, particularly when driving or standing up from a seated position. There is also a mention of mild groin and hip discomfort without any significant radiation to other areas. The patient expresses a reluctance to use medication for pain relief, preferring non- pharmacological measures. Existing health issues include paroxysmal supraventricular tachycardia, hyperventilation syndrome, hypercholesterolemia, and mixed urinary incontinence, all of which are managed currently. [facility] Medical History Hyperventilation syndrome Vitamin D deficiency LLQ pain Abdominal pain Impacted cerumen of right ear Rectal bleed Blood pressure elevated without history of HTN Breast cancer screening by mammogram Hyperventilation syndrome Diverticular disease Mitral valve prolapse Vitamin D deficiency Hypercholesterolemia Polycystic ovaries Paroxysmal supraventricular tachycardia Surgical History History of colonoscopy History of polycystic ovaries S/P colon resection History of lymph node excision History of cardiac radiofrequency ablation Family History Father Myocardial infarction CVD (cardiovascular disease) Hypertension Mother CHF (congestive heart failure) Hypertension CAD (coronary artery disease) Maternal Grandfather Brain tumor Brother No problems noted. Sister No problems noted. Son No problems noted. Social History Housing: House Alcohol intake: never Patient Tobacco Use Status: Never used Tobacco Tobacco use type: Cigarette e-Cigarette/Vaping Use: Never Used Second Hand Smoke Exposure: No service: No Current occupational status: unemployed Cognitive needs: No Hearing needs: No Vision needs: Yes (reading glasses) Questionnaire PHQ-9 Over the last 2 weeks, how often have you been bothered by any of the following problems? 1. Little interest or pleasure in doing things: more than half the days 2. Feeling down, depressed, or hopeless: more than half the days 3. Trouble falling or staying asleep, or sleeping too much: nearly every day (staying asleep) 4. Feeling tired or having little energy: nearly every day 5. Poor appetite or overeating: nearly every day (over eating) 6. Feeling bad about yourself - or that you are a failure or have let yourself or your family down: several days 7. Trouble concentrating on things, such as reading the newspaper or watching television: not at all 8. Moving or speaking so slowly that other people could have noticed. Or the opposite - being so fidgety or restless that you have been moving around a lot more than usual: not at all 9. Thoughts that you would be better off or of hurting yourself in some way: not at all Total score: 14 Depression Screening Interpretation: Positive Depression Screening Done: Yes Source: Developed by Arleen Oh Kurt Kroenke and colleagues, with an educational donna from [employer]. Thrive Questionnaire Date Thrive assessed: 02/07/24 I am a: Patient What is your living situation today?: I have a steady place to live Within the past 12 months, did the food you bought not last and you didn't have the money to get more?: Never true Within the past 12 months, did you worry whether your food would run out before you got money to buy more?: Never true Do you have trouble paying for medicines?: No Do you have trouble getting transportation to medical appointments?: No Do you have trouble paying your heating and electricity bill?: No Do you have trouble taking care of your child, family member or friend?: No Do you have trouble with day-to-day activities such as bathing, preparing meals, shopping, managing finances, etc.?: No Are you currently unemployed and looking for a job?: No Are you interested in more education?: No Currently or been in a relationship where the following occur: No concerns reported THRIVE Score: 0 AUDIT C Alcohol Use Questionnaire (AUDIT-C) 1. How often do you have a drink containing alcohol?: Never 3. How often do you have six or more drinks on one occasion?: Never Total Score: 0 CHANELL-7 AMB Questionnaire CHANELL-7 Date CHANELL - 7 assessed: 02/09/24 Feeling nervous, anxious, or on edge: 2 = More than half the days Not being able to stop or control worryin = More than half the days Worrying too much about different things: 1 = Several days Trouble relaxin = Not at all Being so restless that it is hard to sit still: 0 = Not at all Becoming easily annoyed or irritable: 0 = Not at all Feeling afraid as if something awful might happen: 2 = More than half the days Total CHANELL-7 score (0-4 normal; 5-9 mild; 10-14 moderate; 15-21 severe): 7 Source: Developed by Arleen Oh Kurt Kroenke and colleagues, with an educational donna from [employer] CHANELL-7 Assessment Billing CHANELL-7 Assessment Tool: CHANELL-7 Assessment 00530 Physical exam (Primary Care) Vital Signs: Last Vital Signs Pulse 80 02/09/24 13:07 BP 128/72 02/09/24 13:07 Pulse Ox 98 02/09/24 13:07 Oxygen Delivery Method Room Air 02/09/24 13:07 BMI result Body Mass Index 28.5 Tobacco/Smoking Status: Tobacco use Status Tobacco use date assessed 06/07/23 02/09/24 13:09 Patient Tobacco Use Status Never used Tobacco 02/09/24 13:09 Tobacco use type Cigarette 02/09/24 13:09 e-Cigarette/Vaping Use Never Used 02/09/24 13:09 PHQ-9: PHQ-9 Score PHQ-9: Total score 14 02/09/24 13:33 Depression Screening Interpretation: Positive Thrive Assessment: Date of Thrive Assessment Date Thrive assessed 02/07/24 02/09/24 13:09 Currently or been in a relationship where the following occur: No concerns reported Const General: alert; No acute distress Eyes Conjunctivae: conjunctivae normal Resp Auscultation: clear to auscultation bilaterally Cardio Rate: regular rate Rhythm: regular rhythm GI Inspection: Yes normal to inspection Coding Level of Care Code Est Pt Level 4 (99025) Diagnoses Acute pain of both knees M25.561; M25.562 Chronicity: acute Hip pain, bilateral M25.551; M25.552 Overweight (BMI 25.0-29.9) E66.3 Additional Codes CHANELL-7 Assessment Billing - CHANELL-7 Assessment Tool: CHANELL-7 Assessment 80697 ([id number]) Assessment & Plan Assessment & Plan (1) Knee pain, bilateral: Code(s): M25.561 - Pain in right knee; M25.562 - Pain in left knee Category: Medical Qualifiers: Chronicity: acute Qualified Code(s): M25.561 - Pain in right knee; M25.562 - Pain in left knee Plan: will order for xray (2) Hip pain, bilateral: Code(s): M25.551 - Pain in right hip; M25.552 - Pain in left hip Category: Medical Plan: will do xray (3) Overweight (BMI 25.0-29.9): Code(s): E66.3 - Overweight Category: Medical Plan - Bilateral Lower Extremity Pain: Initiate further assessment with X-rays of both knees, hips, and lumbar spine to evaluate joint integrity and rule out any underlying pathological changes. Recommend the initiation of physical therapy focusing on muscle strengthening and flexibility to address potential musculoskeletal origins of pain. Non-pharmacological strategies such as continued application of heat should be emphasized for symptomatic relief. - Obesity: Arrange for a referral to a director retirement to assist the patient in developing a sustainable diet plan targeting weight reduction. Encourage lifestyle modifications including dietary changes and graded exercise, considering her activity limitations due to pain. - Hypercholesterolemia: Although cholesterol levels are mildly elevated, they should continue to be monitored with a focus on dietary modifications as discussed during the director retirement consultation. Reinforce adherence to any current medications for lipid management. The patient acknowledged the plan and expressed willingness to pursue the recommended therapeutic strategies. Orders: Orders XR hip BI w PEL1V Today M25.551 - Pain in right hip, M25.552 - Pain in left hip XR knee LT 3V Today M25.551 - Pain in right hip, M25.552 - Pain in left hip XR knee RT 2V Today M25.551 - Pain in right hip, M25.552 - Pain in left hip XR lumbar spine 2-3V Today M25.551 - Pain in right hip, M25.552 - Pain in left hip PT Evaluation and Treatment Today M25.551 - Pain in right hip, M25.552 - Pain in left hip Referrals Nutrition/Dietitian Referral E66.3 - Overweight
== END 2024-02-09 13:47 | disposition home or self-care (01) ==
PROVIDERS: PCP Internal Medicine; Visit Provider Internal Medicine
DX: M25.561 Pain in right knee (principal); M25.562 Pain in left knee; M25.551 Pain in right hip; M25.552 Pain in left hip; E66.3 Overweight

== ENCOUNTER → 2024-02-09 13:55 | Outpatient (BNV) | payer MEDICARE, SELFPAY | PROVIDERS: PCP Internal Medicine; Visit Provider Radiology Diagnostic Radiology | DX: M54.50 Low back pain, unspecified (principal); M25.551 Pain in right hip; M25.562 Pain in left knee; M25.561 Pain in right knee | CPT/HCPCS: 72100; 73521; 73560; 73562 ==

== ENCOUNTER 2024-03-26 09:10 | Outpatient (AMB) | payer MEDICARE, SELFPAY ==
--- NOTE | 2024-03-26 09:10 | A.OFFPC_ITS ---
Intake Visit Reasons: CHANELL RIVER/[phone] Intake Note: Patient is here to follow up on JOSET, CHANELL. Wants to discuss Weight loss options. 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 Accompanied by: Self / Same As Patient Allergies Iodinated Contrast Media [IV CONTRAST] Allergy (Intermediate, Verified 03/26/24 09:11) PERIORBITAL SWELLING ciprofloxacin [From CIPRO] Allergy (Unknown, Verified 03/26/24 09:11) Nausea iodine Allergy (Unknown, Verified 03/26/24 09:11) from the [facility]SCAn had sweling periorbital metronidazole [Flagyl] Allergy (Unknown, Verified 03/26/24 09:11) headaches Sulfa (Sulfonamide Antibiotics) Allergy (Unknown, Verified 03/26/24 09:11) headache, severe migraine sulfamethoxazole [From BACTRIM] Allergy (Unknown, Verified 03/26/24 09:11) HEADACHE trimethoprim [From BACTRIM] Allergy (Unknown, Verified 03/26/24 09:11) HEADACHE Tobacco use date assessed: 03/26/24 Dental Screening Dental Screen Date: 03/26/24 Did you have a dental visit in the last 12 months?: Yes Did you have a dental problem in the last 6 months where you did not have access to dental care?: No Was dental information given to patient?: Patient has dentist HPI PERICO, CHANELL/[phone] HPI Details The patient is a 63-year-old female presenting with persistent joint pain and anxiety disorder management. The patient reports ongoing hip, knee, and back pain due to arthritis, which was confirmed by previous X-ray imaging. She indicates that the pain intensity varies, with increased discomfort when standing for prolonged periods, though the symptoms have somewhat ameliorated recently. Additionally, the patient is under psychological stress due to familial issues, specifically concerning her son Marc's uncontrolled anger and its impact on his family, notably his young child Shinto. The patient participates in regular Zoom therapy sessions, indicating these help with her anxiety. - Musculoskeletal: Reports hip, knee, an d back pain. - Psychological: Reports anxiety and emo tional distress. [facility] Medical History (Updated 03/26/24 @ 09:39 by Andre Tipton MD) Overactive adrenal gland Hyperventilation syndrome Vitamin D deficiency LLQ pain Abdominal pain Impacted cerumen of right ear Rectal bleed Blood pressure elevated without history of HTN Breast cancer screening by mammogram Hyperventilation syndrome Diverticular disease Mitral valve prolapse Vitamin D deficiency Hypercholesterolemia Polycystic ovaries Paroxysmal supraventricular tachycardia Surgical History History of colonoscopy History of polycystic ovaries S/P colon resection History of lymph node excision History of cardiac radiofrequency ablation Family History Father Myocardial infarction CVD (cardiovascular disease) Hypertension Mother CHF (congestive heart failure) Hypertension CAD (coronary artery disease) Maternal Grandfather Brain tumor Brother No problems noted. Sister No problems noted. Son No problems noted. Social History Housing: House Alcohol intake: never Patient Tobacco Use Status: Never used Tobacco Tobacco use type: Cigarette e-Cigarette/Vaping Use: Never Used Second Hand Smoke Exposure: No service: No Current occupational status: unemployed Cognitive needs: No Hearing needs: No Vision needs: Yes (reading glasses) Questionnaire PHQ-9 Over the last 2 weeks, how often have you been bothered by any of the following problems? 2. Feeling down, depressed, or hopeless: several days (has therapist) Source: Developed by Drs. Ta Redding, Arleen Mckeon, Santosh Rodriguez and colleagues, with an educational donna from [employer] acquired by [employer]. Thrive Questionnaire Date Thrive assessed: 03/26/24 I am a: Patient What is your living situation today?: I have a steady place to live Within the past 12 months, did the food you bought not last and you didn't have the money to get more?: Never true Within the past 12 months, did you worry whether your food would run out before you got money to buy more?: Never true Do you have trouble paying for medicines?: No Do you have trouble getting transportation to medical appointments?: No Do you have trouble paying your heating and electricity bill?: No Do you have trouble taking care of your child, family member or friend?: No Do you have trouble with day-to-day activities such as bathing, preparing meals, shopping, managing finances, etc.?: No Are you currently unemployed and looking for a job?: No Are you interested in more education?: No Please select the resources that you would like help with: None Currently or been in a relationship where the following occur: No concerns reported THRIVE Score: 0 AUDIT C Alcohol Use Questionnaire (AUDIT-C) 1. How often do you have a drink containing alcohol?: Never Total Score: 0 CHANELL-7 AMB Questionnaire CHANELL-7 Date CHANELL - 7 assessed: 03/26/24 Feeling nervous, anxious, or on edge: 2 = More than half the days (Has a therapist) Source: Developed by Drs. Ta Redding, Arleen Mckeon, Santosh Rodriguez and colleagues, with an educational donna from [employer] acquired by [employer]. Physical exam (Primary Care) Tobacco/Smoking Status: Tobacco use Status Tobacco use date assessed 03/26/24 03/26/24 09:14 Patient Tobacco Use Status Never used Tobacco 03/26/24 09:14 Tobacco use type Cigarette 03/26/24 09:14 e-Cigarette/Vaping Use Never Used 03/26/24 09:14 Thrive Assessment: Date of Thrive Assessment Date Thrive assessed 03/26/24 03/26/24 09:14 Currently or been in a relationship where the following occur: No concerns reported Telehealth Telehealth Telehealth Platform: Telephone Location of provider rendering services: practice address Location of patient: address on file Patient Identification confirmed using: Name, : Yes Telehealth method: voice only Patient verbally consented to treatment: Yes Patient verbally consented to billing insurance company: Yes Patient informed of any privacy concerns related to visit: Yes Minutes spent on Phone/Video with Pt.: 15 Coding Level of Care Code Tele Est Pt Level 4 (42656) Diagnoses Hip osteoarthritis M16.9 Knee osteoarthritis M17.9 Generalized anxiety disorder F41.1 Overweight (BMI 25.0-29.9) E66.3 Assessment & Plan Assessment & Plan (1) Hip osteoarthritis: Comment: 02/2024 Code(s): M16.9 - Osteoarthritis of hip, unspecified Category: Medical Plan: try to be active and call if pain gets worse (2) Knee osteoarthritis: Comment: 02/2024 Code(s): M17.9 - Osteoarthritis of knee, unspecified Category: Medical Plan: try to keep active still . call for pain (3) Generalized anxiety disorder: Comment: Panic attacks. counselling private- DR. Garcia. 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 Plan During the visit, we discussed the management of symptoms related to osteoarthritis. This involves activity modifications based on her pain levels. For anxiety, continued counseling sessions were advised, focusing on coping strategies for familial stress. We also discussed the importance of setting boundaries and seeking social support. - Continue participation in weekly counseling sessions. - Modify activities to manage joint pain effectively. - Engage in family discussions to address issues in a healthier manner. - Monitor symptoms and report any significant changes in condition.
== END 2024-03-26 10:06 | disposition home or self-care (01) ==
LOC: HO.HMCH 09:10
PROVIDERS: PCP Internal Medicine; Visit Provider Internal Medicine
DX: M16.0 Bilateral primary osteoarthritis of hip (principal); M17.0 Bilateral primary osteoarthritis of knee; F41.1 Generalized anxiety disorder; E66.3 Overweight

== ENCOUNTER → 2024-06-04 09:00 | Outpatient (REF) | payer MEDICARE, SELFPAY ==
--- NOTE | 2024-06-04 09:03 | CA_ITS ---
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 The calculated ejection fraction is 56% by biplane method. - No obvious valvular pathology seen on this study. Findings Left Ventricle Normal left ventricular cavity size. There is normal left ventricular wall thickness. The left ventricular systolic function is normal. The calculated ejection fraction is 56% by biplane method. There is no evidence of regional wall motion abnormalities. Diastolic function is normal for age. Right Ventricle Normal right ventricular cavity size and systolic function. Atria Both atria are normal in size. Aortic Valve There is a normal trileaflet aortic valve. There is no aortic valve stenosis. There is no aortic valve regurgitation. Mitral Valve The mitral valve appears normal. There is trace mitral valve regurgitation. There is no mitral valve stenosis. Pulmonic Valve The pulmonic valve is likely normal. Tricuspid Valve Normal tricuspid valve structure. There is trace tricuspid valve regurgitation. There is no evidence of pulmonary hypertension. Great Vessels The sinuses of valsalva is normal in size. Venous The inferior vena cava is normal in size and collapses greater than 50% with inspiration. Pericardium/Pleural There is no evidence of pericardial effusion. Prior Study Comparison No significant change compared to prior study dated: 04/26/2023. Recommendations, Care & Conclusions No obvious valvular pathology seen on this study. Measurements 2D Linear Measurements IVSd: 0.93 0.6-0.9/0.6-1.0 cm LVIDd: 4.55 3.9-5.3/4.2-5.9 cm LVIDd Index: 2.60 2.4-3.2/2.2-3.1 cm/m2 LVIDs: 3.04 2.0-3.6 cm LVPWd: 0.88 0.7-1.1 cm Ao Root: 2.60 2.1-3.5 cm LA Diam: 3.10 2.7-3.8/3.0-4.0 cm LAIDs Index: 1.77 1.5-2.3 cm/m2 LV Mass: 169.46 67-162/88-224 g LV Mass Index: 96.83 43-95/49-115 g/m2 LVOT Diam: 1.90 3.0+(-)1.3 cm 2D Systolic Function EF 4C: 58.10 >55% EF 2C: 59.80 >55% EF BiP: 55.60 >55% Mitral Valve MV Pk E: 0.46 MV PK A: 0.77 MV Decel Time: 271.00 E/A: 0.60 E'Lateral: 4.46 E'Medial: 6.42 E/E' Med: 7.20 E/E' Lat: 10.40 PHT: 79.00 MVA PHT: 2.78 Decel [place]: 1.71 LVOT LVOT Pk Saran: 0.78 LVOT Mn Saran: 0.46 LVOT VTI: 0.19 LVOT Pk Grad: 2.00 LVOT Mn Grad: 1.00 LVOT Diam: 1.90 LVOT Area: 2.84 Diastolic Function MV Pk E: 0.46 MV Pk A: 0.77 E/A: 0.60 E'Medial: 6.42 E/E' Med: 7.20 E' Laterial: 4.46 E/E' Lat: 10.40 Tricuspid Valve TR Pk Saran: 1.62 TR Pk Grad: 10.00 RA Press: 3.00 RVSP: 13.00 Great Vessels Aorta Ao Root-2D: 2.60 2.0-3.7 cm Pulmonary Valve PV Pk Saran: 0.81 Peak PV Grad: 3.00 Updated in Other Vendor System with Status of Final Rex Wilde MD electronically signed on 06/05/2024 3:46:44 PM with status of Final
--- OUTSIDE RECORDS SUMMARY | 2024-06-04 09:42 | XMS_ITS | Patient Health Record ---
Author Organization [facility] Address [address] [place] [address] Care Team Providers Care Judge Name Role Phone CIERRA ROBERTS M.D. Primary Care Provider Lorena Crump Unavailable [phone] Allergies Allergen (clinical drug ingredient) Drug/Non Drug Allergy documented on EMR Reaction Allergy Type Onset Date Status sulfamethoxazole / trimethoprim BACTRIM Headache Drug Allergy Active ciprofloxacin Cipro Unknown Drug Allergy Act [place] metronidazole Flagyl Unknown Drug Allergy Act [place] Iodine Swelling Drug Allergy Active Results Component Value Reference Range Notes [id number] [id number] No Culture 30 Plus Reviewed date:09/21/2023 04:13:42 PM Interpretation: Performing Lab:[facility] [place], [address], [address], [place], Phone - [phone], Director - [facility] Notes/Report: Clinical Information:Vaginal/Cervical, LMP: Men o [id number] Dates / Results....07/13/20 NIL, Neg HPV Other..............Post Menopausal No. of containers..01 ThinPrep Vial DIAGNOSIS: NEGATIVE FOR INTRAEPITHELIAL LESION OR MALIGNANCY. CELLULAR CHANGES ASSOCIATED WITH ATROPHY ARE PRESENT. Specimen adequacy: Satisfactory for evaluation. Endocervical component may not be distinguished in cases of atrophy. Clinician provided ICD10: Z0 1.419 Performed by: Adelina dang, Market Developer (ASCP) . . Note: The Pap smear is a screening test designed to aid in the detection of premalignant and malignant conditions of the uterine cervix. It is not a diagnostic procedure and should not be used as the sole means of detecting cervical cancer. Both false-positive and false-negative reports do occur. . Test Methodology: This liquid based ThinPrep(R) pap test was screened with the use of an image guided system. HPV Aptima Negative Negative This nucleic acid amplification test detects fourteen high-risk HPV types (16,18,31,33,35,39,45,51,52,56,58 ,59,66,68) without differentiation. HPV Genotype Reflex Criteria not met, HPV Genotype not performed. PDF Report Reviewed date:09/21/2023 04:13:27 PM Interpretation: Performing Lab:[facility] [place], [address], [address], [place], Phone - [phone], Director - [facility] Notes/Report: Clinical Information:Vaginal/Cervical, LMP: Men o [id number] Dates / Results....07/13/20 NIL, Neg HPV Other..............Post Menopausal No. of containers..01 ThinPrep Vial Reason For Referral No Information Medications Medication SIG (Take, Route, Frequency, Duration) Notes Start Date End Date Status Metoprolol Succinate ER 25 MG 1 tablet Orally Once a day 12.5MG TWICE A DAY Active Ativan 0.5 MG 1/2 Orally Once a day 1/2 NEEDED Active Estradiol 10 MCG 1 _insert Vaginal THRICE A WEEK for 90 days 09/19/2023 Active Estradiol Vaginal Cream 0.01% 1 Gram to the affected area Vaginally Twice a week for 90 days Please use good rx if cheaper. ID [id number], BIN: [id number], PCN: [id number], GROUP: [id number] 09/20/2023 Active Social History Tobacco Use: Social History Observation Description Date Details (start date - stop date) Never Smoker NA - NA Tobacco Use/Smoking Question Answer Notes Are you a nonsmoker Alcohol Screen (Audit-C) Question Answer Notes Did you have a drink containing alcohol in the p ast year? No Points 0 Interpretation Negative Sexual History Question Answer Notes Had sex in the past 12 months (vaginal, oral, or anal)? Yes with Men only Prevention strategies discussed: Other Section Notes: Marital status: Children: 1 boy Lives with: spouse Nutrition: average diet Exercise: none Sexual activity: monogamous relationship. Contraception: menopause .CE: Smoking: Never a smoker .CE: Alcohol: none Text messaging while driving: no Sunscreen: yes Illicit drugs: no Seatbelt: yes Problems Problem Type SNOMED Code ICD Code Onset Dates Problem Status W/U Status Risk Notes Problem Postmenopausal atrophic vaginitis (34790443) Postmenopausal atrophic vaginitis (N95.2) Active confirmed Problem Urinary incontinence (413530406) Unspecified urinary incontinence (R32) Active confirmed Problem Atrophy of vulva (398927193) Atrophy of vulva (N90.5) Active confirmed Problem Panic disorder without agoraphobia (52839177) Panic disorder without agoraphobia (300.01) Active confirmed Major Problem Cardiac arrhythmia (150722059) Other specified cardiac dysrhythmias (427.89) Active confirmed Major Problem Postmenopausal atrophic vaginitis (05959486) Postmenopausal atrophic vaginitis (627.3) Active confirmed Diag Problem Gynecological examination normal (913709932043712) Routine gynecological examination (V72.31) Active confirmed Major Problem Screening for malignant neoplasm of colon (928654511) Special screening for malignant neoplasms, colon (V76.51) Active confirmed Major Vital Signs Temperature 97.9 degrees Fahrenheit 09/19/2023 Blood pressure diastolic 80 mm Hg 09/19/2023 Height 62.5 in 09/19/2023 Blood pressure systolic 112 mm Hg 09/19/2023 Weight 154 lbs 09/19/2023 BMI 27.72 kg/m2 09/19/2023 Encounters Encounter Location Date Provider Diagnosis Total [facility] [employer] [address] [place] [phone] 09/19/2023 Lorena Jason Encounter for gynecological examination (general) (routine) without abnormal findings Z01.419 ; Encounter for screening mammogram for malignant neoplasm of breast Z12.31 ; Postmenopausal atrophic vaginitis N95.2 ; Dense breasts, unspecified R92.30 and Unspecified urinary incontinence R32 Total [place] [employer] [address] [address] 09/20/2023 Lorena Jason Assessments Encounter Date Diagnosis (ICD Code) Assessment Notes Treatment Notes Treatment Clinical Notes Section Notes 09/19/2023 Encounter for gynecological examination (general) (routine) without abnormal findings (ICD-10 - Z01.419) PAP TEST WITH HPV TYPING WAS OBTAINED. 09/19/2023 Encounter for screening mammogram for malignant neoplasm of breast (ICD-10 - Z12.31) REGULAR MAMMOGRAMS AND SBE'S WERE RECOMMENDED. 09/19/2023 Postmenopausal atrophic vaginitis (ICD-10 - N95.2) DISCUSSED FINDINGS, DX AND TX OPTIONS. ENCOURAGED PAT TO RESTART ESTRADIOL TABS AND EXPLAINED THE BENEFITS OF THIS REGIMEN EVEN WHEN NOT SEXUALLY ACTIVE. PAT AGREED. RX AND INSTRUCTIONS WERE GIVEN. 09/19/2023 Dense breasts, unspecified (ICD-10 - R92.30) DISCUSSED DENSE BREASTS ON MAMMOGRAM AND ITS IMPLICATIONS. 3D MAMMOGRAMS WERE RECOMMENDED. 09/19/2023 Unspecified urinary incontinence (ICD-10 - R32) CONTINUE FOLLOW UP WITH DR NUNEZ. DISCUSSED BENEFITS OF INTRAVAGINAL ESTROGEN EVEN IN URINARY ISSUES. Plan Of Treatment Pending Test Test Name Order Date MAMMOGRAM, SCREENING 09/14/2022 MAMMOGRAM, SCREENING 09/19/2023 Urine Culture and Sensitivity 07/11/2014 Ultrasound : Pelvic 07/11/2014 Ultrasound : Retroperitoneal 07/11/2014 COMPLETE URINALYSIS 07/13/2020 THIN PREP,HPV,RICCI IF HPV+ (>29YR)(SCRN) 03/15/2017 URINE CULTURE 07/13/2020 MM Digital Mammo Screening 12/20/2018 MM Digital Mammo Screening 07/13/2020 MM Digital Mammo Screening 09/14/2022 MM Digital Mammo Screening 09/19/2023 Next Appt Details Provider Name:Lorena Ayesha cardenas, 09/24/2024 09:40:00 AM, [address], [address], [place], [address], Insurance Providers Payer Name Payer Address Payer Phone Subscriber Number Group Number Insured Name Patient Relationship to Insured Coverage Start Date Coverage End Date [employer] MEDICARE PPO [address] [place] [address] [id number] ANGEL MAY Self - patient is the insured Medical (General) History Medical History History ICD Code Postmenopausal atrophic vaginitis N95.2 Other specified cardiac arrhythmias I49. 8 Panic disorder [episodic paroxysmal anxi ety] without agoraphobia F41.0 Menopausal and female climacteric states N95.1 Right lower quadrant pain R10.31 Atrophy of vulva N90.5 Diverticulitis Ulceration of vulva N76.6 Herpesviral infection, unspecified B00.9 Inconclusive mammogram R92.2 Unspecified urinary incontinence R32 Mammographic heterogeneous density, bila teral breasts R92.333 Surgical History Surgery Date(Month/Year) Bilateral Tubal Ligation Exploratory Laparoscopy for Wedges Ovary Left Breast Biopsy Right Axilla Lymph Node Excision Heart Ablation and Implanted Cherrie Record er 11/2014 Colonoscopy Colorectal Surgery Hospitalization History Reason Date(Month/Year) See Surgical Hx 1 Vaginal Delivery
--- OUTSIDE RECORDS SUMMARY | 2024-06-04 09:42 | XMS_ITS | Clinical Summary ---
Author Organization [facility] Address [address] [place] [address] Phone Care Team Providers Care Machine I Coremaker Name Role Phone Andre Tipton MD Primary Care Provider [phone] Encounters Date Type Department Care Team Description 05/27/2024 5:40 PM EDT Ancillary Procedure [facility] [address] [facility] [address] [place] [address] 04/25/2024 2:15 AM EST Ancillary Procedure [facility] [address] [facility] [address] [place] [address] 03/26/2024 9:55 AM EST Ancillary Procedure [facility] [address] [facility] [address] [place] [address] from Last 3 Months Family History Medical History Relation Name Comments Hypertension Father Other: myocarditis Father Relation Name Status Comments Father Social History Tobacco Use Types Packs/Day Years Used Date Smoking Tobacco: Never Smokeless Tobacco: Never Alcohol Use Standard Drinks/Week Comments Never 0 (1 standard drink = 0.6 oz pur e alcohol) Comments Unknown Sex and Gender Information Value Date Recorded Sex Assigned at Not on file Legal Sex Female 4:56 AM EST Gender Identity Not on file Sexual Orientation Not on file Obstetrics History Last Filed Vital Signs Vital Sign Reading Time Taken Comments Blood Pressure 130/64 12/14/2023 2:44 PM EDT Pulse 85 12/14/2023 2:44 PM EDT Temperature - - Respiratory Rate - - Oxygen Saturation - - Inhaled Oxygen Concentration - - Weight 71.7 kg (158 lb) 12/14/2023 2:44 PM EDT Height 160 cm (5' 3 ) 12/14/2023 2:44 PM EDT Body Mass Index 27.99 12/14/2023 2:44 PM EDT Plan of Treatment Health Maintenance Due Date Last Done Comments Breast Cancer Screening 1960 DTaP,Tdap,and Td Vaccines (1 - Tdap) 1981 Cervical Cancer Screening: P ap Smear 06/07/1983 Pneumococcal Vaccine: 50+ Years (1 of 1 - PCV) 2012 Zoster Vaccines (1 of 2) 2012 Cholesterol Screening (Lipid Panel) 02/06/2022 Colorectal Cancer Screening: Colonoscopy 02/06/2022 Depression Screening 02/06/2022 HIV Screening 02/06/2022 Hepatitis C Screening 02/06/2022 Medicare Annual Wellness Visit 02/06/2022 Social Influencers of Health Screening 02/06/2022 RSV Immunization Patients 60 + Years Old (1 - Risk 60-74 years 1-dose series) 2022 COVID-19 Vaccine (4 - 2023-2 5 season) 2023 04/09/2021, 08/18/2020, 06/16/2020 Hypertension/CHF/CAD Annual BMP Blood Test 10/19/2024 10/20/2023 Influenza Vaccine (Season Ended) 2024 HIB Vaccines Aged Out No longer eligi ble based on patient's age to complete this topic HPV Vaccines Aged Out No longer eligi ble based on patient's age to complete this topic Hepatitis A Vaccines Aged Out No long er eligible based on patient's age to complete this topic Hepatitis B Vaccines Aged Out No long er eligible based on patient's age to complete this topic IPV Vaccines Aged Out No longer eligi ble based on patient's age to complete this topic MMR Vaccines Aged Out No longer eligi ble based on patient's age to complete this topic Meningococcal ACWY Vaccine Aged Out N o longer eligible based on patient's age to complete this topic Meningococcal B Vacine Aged Out No lo nger eligible based on patient's age to complete this topic Pneumococcal Vaccine: Pediatrics (0 to 5 Years) and At-Risk Patients (6 to 64 Years) Aged Out No longer eligible b ased on patient's age to complete this topic RSV Immunization Patients Under 20 months Aged Out No longer eligible b ased on patient's age to complete this topic Varicella Vaccines Aged Out No longer eligible based on patient's age to complete this topic Medical Devices Implanted Type Area Inspector Fuel Hose Device Identifier Shelf Expiration Date Model / Serial / Lot Bsci-Crm [id number] Implanted:10/06 (Quantity not on file) Cardiac Loop Recorder [place] [employer] CARD RHYTHM MGMT [id number] / [id number] / Procedures Procedure Name Priority Date/Time Associated Diagnosis Comments CARDIAC DEVICE CHECK- REMOTE- MURJ Routine 05/27/2024 5:36 PM EDT CARDIAC DEVICE CHECK- REMOTE- MURJ Routine 04/25/2024 2:10 AM EST CARDIAC DEVICE CHECK- REMOTE- MURJ Routine 03/26/2024 9:51 AM EST from Last 3 Months Results * Cardiac device check - Remote- MURJ (05/27/2024 5:36 PM EDT) Only the most recent of3 resultswithin the time period is included. Date Time Interrogation Session [id number] CV DEVICE CHECK Type Interrogation Session Remote Scheduled CV DEVICE CHECK Implantable Pulse Generator Inspector Fuel Hose BSX CV DEVICE CHECK Implantable Pulse Generator Type ILR CV DEVICE CHECK Implantable Pulse Generator Model M312 CV DEVICE CHECK Implantable Pulse Generator Serial Number [id number] CV DEVICE CHECK Implantable Pulse Generator Implant Date [id number] CV DEVICE CHECK Battery Status Beginning of Service CV DEVICE CHECK Atrial Tachy Statistic AT/AF Arnett Percent 1.00 CV DEVICE CHECK Date of Service 2024-05-27 CV DEVICE CHECK Anatomical Region Laterality Modality Device Interroga tion 05/27/2024 12:4 3 AM EDT Impressions 05/27/2024 5:26 PM EDT Normal Remote: No Events * This is a normal remote diagnostic device check * Alerts or events: 1 FALSE event for under sensed PVC's * Battery data was reviewed * Battery status: OLIVA, OK * Presenting rhythm: SR 70's with PVC's * Heart Rate Histograms reviewed Narrative Procedure Note Inderjit Broderick MD - 05/27/2024 IMPRESSION: Normal Remote: No Events * This is a normal remote diagnostic device check * Alerts or events: 1 FALSE event for under sensed PVC's * Battery data was reviewed * Battery status: OLIVA, OK * Presenting rhythm: SR 70's with PVC's * Heart Rate Histograms reviewed us Inderjit Broderick MD CV IMPLANTABLE CARDIAC DEVICE PROCEDURES Final Result from Last 3 Months Insurance BLUE CROSS - [place] MEDICARE ADVANTAGE Care Teams Machine I Coremaker Relationship Specialty Start Date End Date Andre Tipton MD [address] [place] [address] [address] [facility] [place] [address] PCP - General Internal Medicine 02/13/15
--- OUTSIDE RECORDS SUMMARY | 2024-06-04 09:43 | XMS_ITS ---
Author Organization [facility] Address [address] [facility] [address] [place] [address] Care Team Providers Care Grades 9 Thru 12 Visiting Teacher Name Role Phone CIERRA ROBERTS M.D. Primary Care Provider Lorena Crump [phone] REASON FOR VISIT FYI RECTAL Encounters Encounter Location Date Provider Diagnosis [facility] [address] [place] [address] [address] [place] [address] 02/13/2023 Lorena Jason Plan Of Treatment Next Appt Details Provider Name:Lorena cardenas, 09/24/2024 09:40:00 AM, [address] [facility], [address], [place], [address], Progress Notes * ANGEL HERRERADOB: [birth year] (62 yo F)Acc No.[id number]:02/13/2023 Patient:?ANGEL HERRERA :1960???Age:62 Y???Sex:Female Address:[address] [place] [address], [place], [address] * true * Date:? Generated for Printi ng/Faaleksandrg/eTransmitting on:?06/04/2024 09:43 AM EDT
--- OUTSIDE RECORDS SUMMARY | 2024-06-04 09:43 | XMS_ITS ---
Author Organization [facility] Address [address] [facility] [address] [place] [address] Care Team Providers Care Melt House Drag Operator Name Role Phone CIERRA ROBERTS M.D. Primary Care Provider Lorena Crump Unavailable [phone] Allergies Allergen (clinical drug ingredient) Drug/Non Drug Allergy documented on EMR Reaction Allergy Type Onset Date Status sulfamethoxazole / trimethoprim BACTRIM Headache Drug Allergy Active ciprofloxacin Cipro Unknown Drug Allergy Act edwin metronidazole Flagyl Unknown Drug Allergy Act edwin Iodine Swelling Drug Allergy Active Results Component Value Reference Range Notes [id number] IGP No Culture 30 Plus Reviewed date:09/21/2023 04:13:42 PM Interpretation: Performing Lab:[address], [address], [place], Phone - [phone], Director - [facility] Notes/Report: Clinical Information:Vaginal/Cervical, LMP: Men o [id number] Dates / Results....07/13/20 NIL, Neg HPV Other..............Post Menopausal No. of containers..01 ThinPrep Vial DIAGNOSIS: NEGATIVE FOR INTRAEPITHELIAL LESION OR MALIGNANCY. CELLULAR CHANGES ASSOCIATED WITH ATROPHY ARE PRESENT. Specimen adequacy: Satisfactory for evaluation. Endocervical component may not be distinguished in cases of atrophy. Clinician provided ICD10: Z0 1.419 Performed by: Adelina dang, Ball Mill Mixer (ASCP) . . Note: The Pap smear [...] Report Reviewed date:09/21/2023 04:13:27 PM Interpretation: Performing Lab:[facility], [address], [address], [place], Phone - [phone], Director - [facility] Notes/Report: Clinical Information:Vaginal/Cervical, LMP: Men o [id number] Dates / Results....07/13/20 NIL, Neg HPV Other..............Post Menopausal No. of containers..01 ThinPrep Vial REASON FOR VISIT HR MEDICARE PE, Annual DEPARTURE CLERK Physical 60-85+ Medications Medication SIG (Take, Route, Frequency, Duration) Notes Start Date End Date Status Metoprolol Succinate ER 25 MG 1 tablet Orally Once a day 12.5MG TWICE A DAY Active Ativan 0.5 MG 1/2 Orally Once a day 1/2 NEEDED Active Estradiol 10 MCG 1 _insert Vaginal THRICE A WEEK for 90 days 09/19/2023 Active Social History Tobacco Use: Social History [...] with Men only Prevention strategies discussed: Other Vital Signs Temperature 97.9 degrees Fahrenheit 09/19/19 24 Blood pressure systolic 112 mm Hg 09/19/19 24 Blood pressure diastolic 80 mm Hg 024 Height 62.5 in 09/19/2023 Weight 154 lbs 09/19/2023 BMI 27.72 kg/m2 09/19/2023 Encounters Encounter Location Date Provider Diagnosis [address] [place] [address] 09/19/2023 Lorena Jason Encounter for gynecological examination (general) (routine) without abnormal findings Z01.419 ; Encounter for screening mammogram for malignant neoplasm of breast Z12.31 ; Postmenopausal atrophic vaginitis N95.2 ; Dense breasts, unspecified R92.30 and Unspecified urinary incontinence R32 Assessments Encounter Date Diagnosis (ICD Code) Assessment [...] EVEN IN URINARY ISSUES. Plan Of Treatment Medication Medication Name Sig Start Date Stop Date Notes Estradiol 10 MCG 1 _insert Vaginal TH RICE A WEEK for 90 days 09/19/2023 Treatment Notes Assessment Notes Encounter for gynecological examination (general) (routine) without abnormal findings PAP TEST WITH HPV TYPING WAS OBTAINED. Encounter for screening mamm ogram for malignant neoplasm of breast REGULAR MAMMOGRAMS AND SBE'S WERE RECOMMENDED. Postmenopausal atrophic vaginitis DISCUSSED FINDINGS, DX AND TX OPTIONS. ENCOURAGED PAT TO RESTART ESTRADIOL TABS AND EXPLAINED THE BENEFITS OF THIS REGIMEN EVEN WHEN NOT SEXUALLY ACTIVE. PAT AGREED. RX AND INSTRUCTIONS WERE GIVEN. Dense breasts, unspecified DISCUSSED DENSE BREASTS ON MAMMOGRAM AND ITS IMPLICATIONS. 3D MAMMOGRAMS WERE RECOMMENDED. Unspecified urinary incontinence CONTINUE FOLLOW UP WITH DR NUNEZ. DISCUSSED BENEFITS OF INTRAVAGINAL ESTROGEN EVEN IN URINARY ISSUES. Pending Test Test Name Order Date MAMMOGRAM, SCREENING 09/19/2023 MM Digital Mammo Screening 09/19/2023 Next Appt Details Follow Up: 1 Year, Reason: Provider Name:Lorena L Mika cardenas, 09/24/2024 09:40:00 AM, [address], [address], [place], [address], Progress Notes * ANGEL HERRERADOB: [birth year] (63 yo F)Acc No.[id number]:09/19/2023 PROGRESS NOTES Patient:?ANGEL HERERRA Appointment Provider:?Lorena cardenas M.D. :1960???Age:63 Y???Sex:Female D ate:09/19/2023 Address:[address] [place], [place] [id number] Pcp:CIERRA ROBERTS M.D. Subjective: * Chief Complaints: * ???HR MEDICARE PEAnnual DEPARTURE CLERK Physical 60-85+ * HPI: ???New/Follow-up Patient Consult:? SANG ENTERED MENOPAUSE AT AGE 44,? SHE HAD BEEN USING YUVAFEM BUT DISOCNTINUED? WHEN SHE LOST HER TO PROSTATE CA IN MAR 2022.? SHE HAS NOT BEEN SEXUALLY ACTIVE. SHE HAS AN ONLY SON WHO HAS TAKEN THE LOSS OF HIS FATHER VERY HARD.? HE WAS CLOSE TO HIS PATERNAL GRANDMOTHER AND SHE A MONTH BEFORE HIS FATHER SO HE LOST 2 VERY IMPORTANT PEOPLE TO HIM IN A MONTH.? HE HAS BECOME REBELLIOUS AND VERY DIFFICULT TO LIVE WITH.? HE HAD BEEN WITH A STEADY GIRL FRIEND WITH WHOM HE HAS 2 SONS, A 5 YEAR OLD AND A 7 MONTH OLD.? HE HAS LEFT THEM AND IS NOW LIVING IN WITH AN OLDER WOMAN.? HE SWEARS AT HIS MOTHER AND GIRL FRIEND AND SAYS MEAN HURTFUL THINGS.? HE HAS LOST HIS JOB AND HIS HOME.?? THE PAT HAD BOWEL RESECTION FOR DIVERTICULOSIS IN 2019.? SHE SAW DR NUNEZ FOR URINARY INCONTINENCE AND WAS UNDERGOING PHYSICAL THERAPY WITH GOOD RESULTS BUT SHE HAS STOPPED GOING.? SHE ALSO HAS A HX OF HSV. HER LAST MAMMOGRAM DONE IN JAN 2023 SHOWED DENSE BREASTS AND WAS NORMAL.? SHE HAS NO FAMILY HX OF BREAST, OVARIAN, COLON OR UTERINE CA. HER LAST PAP TEST IN 2020 WAS NEGATIVE AND HPV NEGATIVE. SHE HAD A COLONOSCOPY DONE IN 2019. PFIZER X 3. ???Annual:? Patient presents for annual exam, ages 60-85, postmenopausal. ?General Health Maintenance:?Current breast complaints:?no breast pain, mass, discharge, or skin changes ?Urinary problems:?patient reports no urinary health problems or bowel health problems ?Calcium intake:?takes adequate calcium via diet and supplementation ?Significant DEPARTURE CLERK problems:?no significant clean up person symptoms or problems * ROS:?general:?no?chest pain.?no?palpitations.?no?headache.?no?cough.?no?shortness of breath.?no?fever.?no?unexplained weight loss.?no?nausea/vomiting.?no?change in bowel movements.?no blood in stool.?no?genitourinary complaints.?no?skin complaints.? * Medical History:? * Electrician Outside History:?/ Para?05/04.?Sexual activity?not currently sexually active.?Last Pap Smear:?07/13/20 NIL, NEG HPV, 03/15/2017 NIL, NEG HRHPV.?Mammogram:?02/01/23 50-75% density, 01/28/22 50-75% density, 2020, 11/20/2017 50-75% density, normal, 11/16/16 right breast needs 6 month f/u, 11/09/16 < 50% density, 11/03/15 < 50% density, 10/21/2014 , normal.?LMP and menses?marianna.?History of STD's:?Herpes Simplex Virus (HSV).? Control:?bilateral tubal ligation.?Menopause: ?Began at age: ?44 ???Colonoscopy?2019 PER PT, 06/2017.? * OB History:?Total pregnancies?3.?Total living children?1.?(s)?1.?Miscarriage(s)?1.? * Surgical History:?Bilateral Tubal Ligation Exploratory Laparoscopy for Wedges Ovary Left Breast Biopsy Right Axilla Lymph Node Excision Heart Ablation and Implanted Cherrie Recorder 11/2014Colonoscopy Colorectal Surgery * Hospitalization/Major Diagno stic Procedure:?1 Vaginal Delivery See Surgical Hx * Family History:?Mother: dece ased 70 yrs, sepsis.?Father: 41 yrs, [place].? * Social History:?Tobacco Use:?Tobacco Use/Smoking?Are you a?nonsmoker ???Sexual History:?Sexual History?Had sex in the past 12 months (vaginal, oral, or anal)??Yes ?with?Men only ?Prevention strategies discussed:?Other ?Details of Sexual History?Are you sexually active??Yes ???Drugs/Alcohol:?Drugs?Have you used drugs other than those for medical reasons in the past 12 months??No ?Alcohol Screen (Audit-C)?Did you have a drink containing alcohol in the past year??No ?Points?0 ?Interpretation?Negative ???Miscellaneous:?Children: yes, 1. ?Domestic violence: no. ?Exercise: no. ?Home smoke detector use: yes. ?Living with: spouse. ?Marital status: . ?Natural support system: yes. ?Occupation: n/a. ?Sexual abuse: no. ?Sexually active: yes, monogamous relationship. ?Verbal abuse: no. * Medications:?TakingMetoprolo l Succinate ER 25 MG Tablet Extended Release 24 Hour 1 tablet Orally Once a day , Notes to Pharmacist: 12.5MG TWICE A DAYAtivan 0.5 MG Tablet 1/2 Orally Once a day , Notes to Pharmacist: 2 NEEDEDTaking Metoprolol Succinate ER 25 MG Tablet Extended Release 24 Hour 1 tablet Orally Once a day , Notes to Pharmacist: 12.5MG TWICE A DAYTaking Ativan 0.5 MG Tablet 1/2 Orally Once a day , Notes to Pharmacist: 2 NEEDEDDiscontinuedYuvafem 10 MCG Tablet 1 tablet Vaginal TWICE A WEEK Yuvafem 10 MCG Tablet 1 tablet Vaginal THRICE A WEEK FOR A MONTH, THEN TWICE WEEKLY Medication List reviewed and reconciled with the patientDiscontinued Yuvafem 10 MCG Tablet 1 tablet Vaginal TWICE A WEEK Discontinued Yuvafem 10 MCG Tablet 1 tablet Vaginal THRICE A WEEK FOR A MONTH, THEN TWICE WEEKLY Medication List reviewed and reconciled with the patient * Allergies:?BACTRIM: Headache - AllergyCipro: AllergyIodine: Swelling - AllergyFlagyl: Allergyno[Allergies Verified] Objective: * Vitals:?Ht: 62.5 in, Wt:154l bs, BMI:27.72Index, BP:112/80mm Hg, Temp:97.9F. * Examination: ???General Exam: ?CONSTITUTIONAL:?General Appearance:?alert, in no acute distress, normal, well nourished ?NECK/THYROID:?Inspection/Palpation:?normal ?Thyroid:?normal size and shape ?RESPIRATORY:?Auscultation: clear to auscultation bilaterally, Respiratory Effort: normal.?CARDIOVASCULAR:?Auscultation: regular rate and rhythm.?BREAST, Right:?Inspection/Palpation:?no discharge, no masses present, no nipple retraction, no skin changes, no skin dimpling, no tenderness, no lymphadenopathy, no axillary mass, no axillary tenderness ?BREAST, Left:?Inspection/Palpation:?no discharge, no masses present, no nipple retraction, no skin changes, no skin dimpling, no tenderness, no lymphadenopathy, no axillary mass, no axillary tenderness ?GASTROINTESTINAL:?Abdomen:?no masses, nontender, nondistended ?Liver and Spleen:?normal ?Hernias:?no hernias present, no inguinal adenopathy ?MUSCULOSKELETAL:?Inspection/Palpation:?no clubbing, cyanosis, or edema ?SKIN:?Skin:?normal ?NEURO/PSYCH:?Orientation:?time , place, person ?Mood/Affect:?normal?Genitourinary: ?EXTERNAL GENITALIA:?External Genitalia:?normal, no lesions ?VAGINA:?Vagina:?atrophic vaginal tissue, minimal moisture ?BLADDER:?Bladder:?no mass, nontender ?URETHRA:?Urethra:?no erythema or lesions present ?CERVIX:?Cervix:?no lesions, nontender ?UTERUS:?Uterus:?nontender, normal contour, normal mobility, normal size ?ADNEXA:?Adnexa:?no masses, no tenderness ?ANUS AND PERINEUM:?Anus/Perineum:?visually normal??? Assessment: * Assessment: 1.?Encounter for gynecologic al examination (general) (routine) without abnormal findings - Z01.419???2.?Encounter for screening mammogram for malignant neoplasm of breast - Z12.31???3.?Postmenopausal atrophic vaginitis - N95.2???4.?Dense breasts, unspecified - R92.30???5.?Unspecified urinary incontinence - R32??? Plan: * Treatment: Notes: PAP TEST WITH HPV TYPING WAS OBTAINED.??2.?Encounter for screening mammogram for malignant neoplasm of breast?Imaging: MM Digital Mammo Screening Notes: REGULAR MAMMOGRAMS AND SBE'S WERE RECOMMENDED.??3.?Postmenopausal atrophic vaginitis? Start Estradiol Insert, 10 MCG, 1 _insert, Vaginal, THRICE A WEEK, 90 days, 36 Tablet, Refills 3. ? Notes: DISCUSSED FINDINGS, DX AND TX OPTIONS. ENCOURAGED PAT TO RESTART ESTRADIOL TABS AND EXPLAINED THE BENEFITS OF THIS REGIMEN EVEN WHEN NOT SEXUALLY ACTIVE. PAT AGREED. RX AND INSTRUCTIONS WERE GIVEN.??4.?Dense breasts, unspecified? Notes: DISCUSSED DENSE BREASTS ON MAMMOGRAM AND ITS IMPLICATIONS. 3D MAMMOGRAMS WERE RECOMMENDED.??5.?Unspecified urinary incontinence? Notes: CONTINUE FOLLOW UP WITH DR NUNEZ. DISCUSSED BENEFITS OF INTRAVAGINAL ESTROGEN EVEN IN URINARY ISSUES.?? * Imaging:? * ?Imaging: MAMMOGRAM, SCR EENING * Procedure Codes:? * Preventive Medicine:? ??YOUR PREVENTIVE WELLNESS PLAN:?Osteoporosis prevention?Calcium, D, strength training.?Breast Cancer Screening (Mammogram):?annually.?Cervical Cancer Screening (Pap Smear):?q 3 years with HPV screen.?Colorectal Cancer Screening:?q 10 years.? * Follow Up:?1 Year * Images: Billing Information: * Visit Code:? [id number] Preventive Care Est Pt. Age 65 and over. * Procedure Codes:? * Sign off status: Completed true * Appointment Provider:?Lorena Jason M.D. Date:?09/19/2023 Generated for Jake john/Bhaskar/eTmichaelitting on:?06/04/2024 09:42 AM EDT History and Physical Notes * HPI (History of Present Illness) Category Sub-Category Detail Notes Category Not es New/Follow-up Patient Consult SANG ENTERED MENOPAUSE AT AGE 44, SHE HAD BEEN USING YUVAFEM BUT DISOCNTINUED WHEN SHE LOST HER TO PROSTATE CA IN MAR 2022. SHE HAS NOT BEEN SEXUALLY ACTIVE. SHE HAS AN ONLY SON WHO HAS TAKEN THE LOSS OF HIS FATHER VERY HARD. HE WAS CLOSE TO HIS PATERNAL GRANDMOTHER AND SHE A MONTH BEFORE HIS FATHER SO HE LOST 2 VERY IMPORTANT PEOPLE TO HIM IN A MONTH. HE HAS BECOME REBELLIOUS AND VERY DIFFICULT TO LIVE WITH. HE HAD BEEN WITH A STEADY GIRL FRIEND WITH WHOM HE HAS 2 SONS, A 5 YEAR OLD AND A 7 MONTH OLD. HE HAS LEFT THEM AND IS NOW LIVING IN WITH AN OLDER WOMAN. HE SWEARS AT HIS MOTHER AND GIRL FRIEND AND SAYS MEAN HURTFUL THINGS. HE HAS LOST HIS JOB AND HIS HOME. THE PAT HAD BOWEL RESECTION FOR DIVERTICULOSIS IN 2018. SHE SAW DR NUNEZ FOR URINARY INCONTINENCE AND WAS UNDERGOING PHYSICAL THERAPY WITH GOOD RESULTS BUT SHE HAS STOPPED GOING. SHE ALSO HAS A HX OF HSV. HER LAST MAMMOGRAM DONE IN JAN 2023 SHOWED DENSE BREASTS AND WAS NORMAL. SHE HAS NO FAMILY HX OF BREAST, OVARIAN, COLON OR UTERINE CA. HER LAST PAP TEST IN 2020 WAS NEGATIVE AND HPV NEGATIVE. SHE HAD A COLONOSCOPY DONE IN 2019. Thoof X 3. Annual General Health Maintenance: Current breast complaints:: no breast pain, mass, discharge, or skin changes Urinary problems:: patient r eports no urinary health problems or bowel health problems Calcium intake:: takes adequ ate calcium via diet and supplementation Significant DEPARTURE CLERK problems:: n o significant clean up person symptoms or problems Examination Category Sub-Category Detail Notes Category Not es General Exam CONSTITUTIONAL: General Appearan ce:: alert, in no acute distress, normal, well nourished NECK/THYROID: Thyroid:: normal size and shape Inspection/Palpation:: normal RESPIRATORY: Auscultation: clear to auscultation bilaterally, Respiratory Effort: normal CARDIOVASCULAR: Auscultation: regula r rate and rhythm GASTROINTESTINAL: Hernias:: no hernias present, no inguinal adenopathy Liver and Spleen:: normal Abdomen:: no masses, nontender, nondiste nded MUSCULOSKELETAL: Inspection/Palpation:: no clubb ing, cyanosis, or edema SKIN: Skin:: normal NEURO/PSYCH: Mood/Affect:: normal Orientation:: time , place, person BREAST, Right: Inspection/Palpation :: no discharge, no masses present, no nipple retraction, no skin changes, no skin dimpling, no tenderness, no lymphadenopathy, no axillary mass, no axillary tenderness BREAST, Left: Inspection/Palpation :: no discharge, no masses present, no nipple retraction, no skin changes, no skin dimpling, no tenderness, no lymphadenopathy, no axillary mass, no axillary tenderness Genitourinary EXTERNAL GENITALIA: External Genitalia:: nor mal, no lesions VAGINA: Vagina:: atrophic vaginal tissue , minimal moisture BLADDER: Bladder:: no mass, nontender URETHRA: Urethra:: no erythema or lesions present CERVIX: Cervix:: no lesions, nontender UTERUS: Uterus:: nontender, normal conto ur, normal mobility, normal size ADNEXA: Adnexa:: no masses, no tendernes s ANUS AND PERINEUM: Anus/Perineum:: visually norm al
--- OUTSIDE RECORDS SUMMARY | 2024-06-04 09:43 | XMS_ITS ---
Author Organization [facility] Address [address] [place] [address] Care Team Providers Care Merchandise Planning Manager Name Role Phone CIERRA ROBERTS M.D. Primary Care Provider Lorena Crump Unavailable [phone] REASON FOR VISIT WANTS CREAM NOT INSERT Medications Medication SIG (Take, Route, Frequency, Duration) Notes Start Date End Date Status Estradiol Vaginal Cream 0.01% 1 Gram to the affected area Vaginally Twice a week for 90 days Please use good rx if cheaper. ID [id number], BIN: [id number], PCN: [id number], GROUP: [id number] 09/20/2023 Active Encounters Encounter Location Date Provider Diagnosis [facility] [address] 09/20/2023 Lorena Jason Plan Of Treatment Medication Medication Name Sig Start Date Stop Date Notes Estradiol Vaginal Cream 0.01% 1 Gram to the affected area Vaginally Twice a week for 90 days 09/20/2023 Please use good rx if cheaper. ID [id number], BIN: [id number], PCN: [id number], GROUP: [id number] Next Appt Details Provider Name:Lorena cardenas, 09/24/2024 09:40:00 AM, [address] [place] [address], [address], [place], [address], Progress Notes * ANGEL HERRERADOB: [birth year] (63 yo F)Acc No.[id number]:09/20/2023 Patient:?ANGEL HERRERA :1960???Age:63 Y???Sex:Female Address:[address] [place] [address], , [place], [address] * Refills? Start Estradiol Vaginal Cream Cream, 0.01%, Vaginally, 42.5 Gram, 1 Gram to the affected area, Twice a week, 90 days, Refills=4 * true * Date:? Generated for Jake john/Bhaskar/eTransmitting on:?06/04/2024 09:42 AM EDT
== END ==
LOC: HO.CARD 09:00
PROVIDERS: PCP Internal Medicine; Visit Provider Physician Assistant Medical
DX: I47.29 Other ventricular tachycardia (principal)
CPT/HCPCS: 93306

== ENCOUNTER → 2024-06-04 09:03 | Outpatient (BNV) | payer MEDICARE, SELFPAY | PROVIDERS: PCP Internal Medicine; Visit Provider Internal Medicine | DX: R94.31 Abnormal electrocardiogram [ECG] [EKG] (principal) | CPT/HCPCS: 93306 ==

== ENCOUNTER 2024-07-12 14:12 | Outpatient (AMB) | payer MEDICARE, SELFPAY ==
--- OUTSIDE RECORDS SUMMARY | 2024-07-12 14:15 | XMS_ITS | Clinical Summary ---
Author Organization [address] [place] [address] Address [address] [place] [address] Phone Care Team Providers Care Architecture Analyst Name Role Phone Andre Tipton MD Primary Care Provider [phone] Encounters Date Type Department Care Team Description 07/11/2024 7:25 PM EDT Ancillary Procedure [facility] [address] [place] [address] Arrived 06/07/2024 11:45 PM EDT Ancillary Procedure [facility] [address] [place] [address] 06/07/2024 6:00 PM EDT Ancillary Procedure [facility] [address] [place] [address] 05/27/2024 5:40 PM EDT Ancillary Procedure [facility] [address] [facility] [address] [place] [address] 04/25/2024 2:15 AM EST Ancillary Procedure [facility] [address] [place] [address] from Last 3 Months Family History Medical [...] Influencers of Health Screening 02/06/2022 RSV Immunization Adult Patients (1 - Risk 60-74 years 1-dose series) 2022 COVID-19 Vaccine ( - 2023-2 5 season) 2023 04/09/2021, 08/18/2020, [...] age to complete this topic Meningococcal B Vaccine Aged Out No l onger eligible based on patient's age to complete [...] this topic Medical Devices Implanted Type Area Silk Finisher Device Identifier Shelf Expiration Date Model / Serial / Lot Biot-Blackboard Biomonitor Iiim [id number] Implanted:07/2022 (Quantity not on file) Cardiac Loop Recorder [employer] BIOMONITOR IIIM / [id number] / Bsci-Crm [id number] Implanted:10/06 (Quantity not on file) Cardiac Loop Recorder [place] [employer] CARD RHYTHM MGMT M312 / [id number] / Procedures Procedure Name Priority Date/Time Associated Diagnosis Comments CARDIAC DEVICE CHECK- REMOTE- MURJ Routine 07/11/2024 7:23 PM EDT CARDIAC DEVICE CHECK- REMOTE- MURJ Routine 06/07/2024 11:43 PM EDT CARDIAC DEVICE CHECK- REMOTE- MURJ Routine 06/07/2024 5:57 PM EDT CARDIAC DEVICE CHECK- REMOTE- MURJ Routine 05/27/2024 5:36 PM EDT CARDIAC DEVICE CHECK- REMOTE- MURJ Routine 04/25/2024 2:10 AM EST from Last 3 Months Results * Cardiac device check - Remote- MURJ (07/11/2024 7:23 PM EDT) Only the most recent of5 resultswithin the time period is included. Date Time Interrogation Session [id number] CV DEVICE CHECK Type Interrogation Session Remote Scheduled CV DEVICE CHECK Implantable Pulse Generator Silk Finisher BSX CV DEVICE CHECK Implantable Pulse Generator Type ILR CV DEVICE CHECK Implantable Pulse Generator Model M312 CV DEVICE CHECK Implantable Pulse Generator Serial Number [id number] CV DEVICE CHECK Implantable Pulse Generator Implant Date 20231103 CV DEVICE CHECK Battery Status Beginning of Service CV DEVICE CHECK Atrial Tachy Statistic AT/AF [place] Percent 0.00 CV DEVICE CHECK Date of Service 2024-07-11 CV DEVICE CHECK Anatomical Region Laterality Modality Device Interroga tion 07/01/2024 1:48 AM EDT Impressions 07/11/2024 10:54 AM EDT Normal Remote: No Events * This is a normal remote diagnostic device check * Alerts or events: None * Battery data was reviewed * Battery status: OLIVA, OK * Presenting rhythm: SR 90's with PVC's * Heart Rate Histograms reviewed Narrative Procedure Note Inderjit Broderick MD - 07/11/2024 IMPRESSION: Normal Remote: No Events * This is a normal remote diagnostic device check * Alerts or events: None * Battery data was reviewed * Battery status: OLIVA, OK * Presenting rhythm: SR 90's with PVC's * Heart Rate Histograms reviewed Inderjit Broderick MD CV IMPLANTABLE CARDIAC DEVICE PROCEDURES Final Result from Last 3 Months Insurance BLUE CROSS - [place] MEDICARE ADVANTAGE Care Teams Architecture Analyst Relationship Specialty Start Date End Date Andre Tipton MD [address] [place] [address] Dr Blood [address] [facility] [place] [address] PCP - General Internal Medicine 02/13/15
--- OUTSIDE RECORDS SUMMARY | 2024-07-12 14:15 | XMS_ITS | Patient Health Record ---
Author Organization [facility] Address [address] [facility] [address] [facility] [address] [place] [address] Care Team Providers Care Hotel Reservation Agent Name Role Phone CIERRA ROBERTS M.D. Primary Care Provider Lorena Crump Unavailable [phone] Allergies Allergen (clinical drug ingredient) Drug/Non Drug Allergy documented on EMR Reaction Allergy Type Onset Date Status sulfamethoxazole / trimethoprim BACTRIM Headache Drug Allergy Active ciprofloxacin Cipro Unknown Drug Allergy Act edwin metronidazole Flagyl Unknown Drug Allergy Act edwin Iodine Swelling Drug Allergy Active Results Component Value Reference Range Notes PDF Report Reviewed date:09/21/2023 04:13:27 PM Interpretation: Performing Lab:[facility] [place], [address], [address], [place], Phone - [phone], [facility] Notes/Report: Clinical Information:Vaginal/Cervical, LMP: Men o [id number] Dates / Results....07/13/20 NIL, Neg HPV Other..............Post Menopausal No. of containers..01 ThinPrep Vial [id number] IGP No Culture 30 Plus Reviewed date:09/21/2023 04:13:42 PM Interpretation: Performing Lab:[facility] [place], [address], [address], [place], Phone - [phone], [facility] Notes/Report: Clinical Information:Vaginal/Cervical, LMP: Men o [id number] Dates / Results....07/13/20 NIL, Neg HPV Other..............Post Menopausal No. of containers..01 ThinPrep Vial DIAGNOSIS: NEGATIVE FOR INTRAEPITHELIAL LESION OR MALIGNANCY. CELLULAR CHANGES ASSOCIATED WITH ATROPHY ARE PRESENT. Specimen adequacy: Satisfactory for evaluation. Endocervical component may not be distinguished in cases of atrophy. Clinician provided ICD10: Z0 1.419 Performed by: Adelina dang, Clinical Trial Head ([facility]) . . Note: The Pap smear is [...] Criteria not met, HPV Genotype not performed. Reason For Referral No Information Medications Medication [...] Please use good rx if cheaper. ID [id number], BIN: [id number], PCN: [id number], GROUP: [id number] 09/20/2023 Active Social [...] Status Risk Notes Problem Postmenopausal atrophic vaginitis (88716774) Postmenopausal atrophic vaginitis (N95.2) Active confirmed Problem Urinary incontinence (878239808) Unspecified urinary incontinence (R32) Active confirmed Problem Atrophy of vulva (663725948) Atrophy of vulva (N90.5) Active confirmed Problem Panic disorder without agoraphobia (04277585) Panic disorder without agoraphobia (300.01) Active confirmed Major Problem Cardiac arrhythmia (069888041) Other specified cardiac dysrhythmias (427.89) Active confirmed Major Problem Postmenopausal atrophic vaginitis (13962157) Postmenopausal atrophic vaginitis (627.3) Active confirmed Diag Problem Gynecological examination normal (125272954792162) Routine gynecological examination (V72.31) Active confirmed Major Problem Screening for malignant neoplasm of colon (978833646) Special screening for malignant neoplasms, colon (V76.51) Active confirmed Major Vital Signs Temperature 97.9 degrees Fahrenheit 09/19/2023 Blood pressure diastolic 80 mm Hg 09/19/2023 Height 62.5 in 09/19/2023 Blood pressure systolic 112 mm Hg 09/19/2023 Weight 154 lbs 09/19/2023 BMI 27.72 kg/m2 09/19/2023 Encounters Encounter Location Date Provider Diagnosis [facility] [address] [place] [address] 09/19/2023 Lorena Jason Encounter for gynecological examination (general) (routine) without abnormal findings Z01.419 ; Encounter for screening mammogram for malignant neoplasm of breast Z12.31 ; Postmenopausal atrophic vaginitis N95.2 ; Dense breasts, unspecified R92.30 and Unspecified urinary incontinence R32 [facility] [address] [address] 09/20/2023 Lorena Jason Assessments Encounter Date Diagnosis [...] Name:Lorena Ayesha cardenas, 09/24/2024 09:40:00 AM, [address] [facility] [address], [address], [place], [address], Insurance Providers Payer Name Payer Address Payer Phone Subscriber Number Group Number Insured Name Patient Relationship to Insured Coverage Start Date Coverage End Date BCBS MEDICARE PPO [address] [place] [address] [id number] ANGEL MAY Self - patient is the [...]
--- OUTSIDE RECORDS SUMMARY | 2024-07-12 14:15 | XMS_ITS ---
Author Organization [facility] [facility] Address [address] [place] [address] Care Team Providers Care Chain Mortiser Operator Name Role Phone CIERRA ROBERTS M.D. Primary Care Provider Lorena Crump Unavailable [phone] REASON FOR VISIT WANTS CREAM NOT INSERT Medications Medication SIG (Take, Route, Frequency, Duration) Notes Start Date End Date Status Estradiol Vaginal Cream 0.01% 1 Gram to the affected area Vaginally Twice a week for 90 days Please use good rx if cheaper. ID [id number], BIN: [id number], PCN: [id number], GROUP: [id number] 09/20/2023 Active Encounters Encounter Location Date Provider Diagnosis [facility] [address] 09/20/2023 Lorena Jason Plan Of Treatment Medication Medication Name Sig Start Date Stop Date Notes Estradiol Vaginal Cream 0.01% 1 Gram to the affected area Vaginally Twice a week for 90 days 09/20/2023 Please use good rx if cheaper. ID [id number], BIN: [id number], PCN: [id number], GROUP: [id number] Next Appt Details Provider Name:Lorena cardenas, 09/24/2024 09:40:00 AM, [address] [place] [address], [address], [place], [address], Progress Notes * ANGEL HERRERADOB: [birth year] (63 yo F)Acc No.[id number]:09/20/2023 Patient:?ANGEL HERRERA :1960???Age:63 Y???Sex:Female Address:[address] [place] [address], , [place], [address] * Refills? Start Estradiol Vaginal Cream Cream, 0.01%, Vaginally, 42.5 Gram, 1 Gram to the affected area, Twice a week, 90 days, Refills=4 * true * Date:? Generated for Jake john/Bhaskar/eTransmitting on:?07/12/2024 02:15 PM EDT
--- OUTSIDE RECORDS SUMMARY | 2024-07-12 14:15 | XMS_ITS | Encounter Summary ---
Author Organization [facility] Address [address] [place] [address] Care Team Providers Care Import Manager Name Role Phone Andre Tipton MD Primary Care Provider [phone] Encounter Details Date Type Department Care Team (Late st Contact Info) Description 07/11/2024 7:25 PM EDT Ancillary Procedure [facility] [address] [place] [address] Arrived Social History Tobacco Use Types Packs/Day Years Used Date Smoking Tobacco: Never Smokeless Tobacco: Never Alcohol Use Standard Drinks/Week Comments Never 0 (1 standard drink = 0.6 oz pur e alcohol) Comments Unknown Sex and Gender Information Value Date Recorded Sex Assigned at Not on file Legal Sex Female 4:56 AM EST Gender Identity Not on file Sexual Orientation Not on file documented as of this encounter Plan of Treatment Not on file documented as of this encounter Procedures Procedure Name Priority Date/Time Associated Diagnosis Comments CARDIAC DEVICE CHECK- REMOTE- MURJ Routine 07/11/2024 7:23 PM EDT documented in this encounter Results * Cardiac device check - Remote- MURJ (07/11/2024 7:23 PM EDT) Date Time Interrogation Session [id number] CV DEVICE CHECK Type Interrogation Session Remote Scheduled CV DEVICE CHECK Implantable Pulse Generator Picker Tender Helper BSX CV DEVICE CHECK Implantable Pulse Generator Type ILR CV DEVICE CHECK Implantable Pulse Generator Model M312 CV DEVICE CHECK Implantable Pulse Generator Serial Number [id number] CV DEVICE CHECK Implantable Pulse Generator Implant Date 20231103 CV DEVICE CHECK Battery Status Beginning of Service CV DEVICE CHECK Atrial Tachy Statistic AT/AF [place] Percent 0.00 CV DEVICE CHECK Date of [...] CV IMPLANTABLE CARDIAC DEVICE PROCEDURES Final Result documented in this encounter Visit Diagnoses Not on filedocumented in this encounter Care Teams Import Manager Relationship Specialty Start Date End Date Andre Tipton MD [address] [place] [address] [address] [facility] [address] PCP - General Internal Medicine 02/13/15 documented as of this encounter
--- OUTSIDE RECORDS SUMMARY | 2024-07-12 14:15 | XMS_ITS ---
Author Organization [facility] Address [address] [place] [address] Care Team Providers Care Systems Programmer Name Role Phone CIERRA ROBERTS M.D. Primary Care Provider Lorena Crump Unavailable [phone] Allergies Allergen (clinical drug ingredient) Drug/Non Drug Allergy documented on EMR Reaction Allergy Type Onset Date Status sulfamethoxazole / trimethoprim BACTRIM Headache Drug Allergy Active ciprofloxacin Cipro Unknown Drug Allergy Act edwin metronidazole Flagyl Unknown Drug Allergy Act edwin Iodine Swelling Drug Allergy Active Results Component Value Reference Range Notes [id number] IGP No Culture 30 Plus Reviewed date:09/21/2023 04:13:42 PM Interpretation: Performing Lab:[facility], [address], [place], Phone - [phone], Director - [facility] Notes/Report: Clinical Information:Vaginal/Cervical, LMP: Men o [id number] Dates / Results....07/13/20 NIL, Neg HPV Other..............Post Menopausal No. of containers..01 ThinPrep Vial DIAGNOSIS: NEGATIVE FOR INTRAEPITHELIAL LESION OR MALIGNANCY. CELLULAR CHANGES ASSOCIATED WITH ATROPHY ARE PRESENT. Specimen adequacy: Satisfactory for evaluation. Endocervical component may not be distinguished in cases of atrophy. Clinician provided ICD10: Z0 1.419 Performed by: Adeilna dang, Tunnel Kiln Operator (ASCP) . . Note: The Pap smear [...] [place], [address], [place], Phone - [phone], Director - [facility] Notes/Report: Clinical Information:Vaginal/Cervical, LMP: Men o [id number] Dates / Results....07/13/20 NIL, Neg HPV Other..............Post Menopausal No. 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 :1960???Age:63 Y???Sex:Female D ate:09/19/2023 Address:[address] [place], [place] [address] Pcp:CIERRA ROBERTS M.D. Subjective: * Chief Complaints: * ???HR MEDICARE PEAnnual ELECTRIC CUTTER OPERATOR Physical 60-85+ * HPI: ???New/Follow-up Patient Consult:? [...] adequate calcium via diet and supplementation ?Significant ELECTRIC CUTTER OPERATOR problems:?no significant bobbin dumper symptoms or problems * ROS:?general:?no?chest pain.?no?palpitations.?no?headache.?no?cough.?no?shortness of breath.?no?fever.?no?unexplained weight loss.?no?nausea/vomiting.?no?change in bowel movements.?no blood in stool.?no?genitourinary complaints.?no?skin complaints.? * Medical History:? 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 * Social History:?Tobacco Use:?Tobacco Use/Smoking?Are you a?nonsmoker [...] * Images: Billing Information: * Visit Code:? 66453 Preventive Care Est Pt. Age 65 and over. * Procedure Codes:? * Sign off status: Completed true * Appointment Provider:?Lorena Jason M.D. Date:?09/19/2023 Generated for Jake john/Bhaskar/eTmichaelitting on:?07/12/2024 02:15 PM EDT History and Physical Notes * HPI [...] SHE HAD A COLONOSCOPY DONE IN 2019. TriOviz X 3. Annual General Health Maintenance: Current breast complaints:: no breast pain, mass, discharge, or skin changes Urinary problems:: patient r eports no urinary health problems or bowel health problems Calcium intake:: takes adequ ate calcium via diet and supplementation Significant ELECTRIC CUTTER OPERATOR problems:: n o significant bobbin dumper symptoms or problems Examination Category Sub-Category Detail [...]
--- OUTSIDE RECORDS SUMMARY | 2024-07-12 14:16 | XMS_ITS ---
Author Organization [facility] Address [address] [facility] [address] [place] [address] Care Team Providers Care Felter Tennis Balls Name Role Phone CIERRA ROBERTS M.D. Primary Care Provider Lorena Crump [phone] REASON FOR VISIT FYI RECTAL Encounters Encounter Location Date Provider Diagnosis [facility] [address] [place] [address] [address] [place] [address] 02/13/2023 Lorena Jason Plan Of Treatment Next Appt Details Provider Name:Lorena cardenas, 09/24/2024 09:40:00 AM, [address] [facility], [address], [place], [address], Progress Notes * ANGEL HERRERADOB: [birth year] (62 yo F)Acc No.[id number]:02/13/2023 Patient:?ANGEL HERRERA :1960???Age:62 Y???Sex:Female Address:[address] [place] [address], [address] * true * Date:? Generated for Printi ng/Faaleksandrg/eTransmitting on:?07/12/2024 02:15 PM EDT
--- NOTE | 2024-07-12 14:41 | A.OFFPC_ITS ---
Vital Signs 07/12/24 14:42 Height 5 ft 3 in Weight 159 lb 8 oz BMI 28.3 BP 116/70 Blood Pressure Location Lt brachial Position Sitting Pulse 75 Pulse Source Pulse Oximeter Temp 97.3 F Temp Source Temporal Artery Scan Pulse Oximetry (%) 99 Oxygen Delivery Method Room Air Intake Visit Reasons: leg pain Yarn Skeins Examiner Required: No Accompanied by: Self / Same As Patient Allergies Iodinated Contrast Media [IV CONTRAST] Allergy (Intermediate, Verified 07/12/24 14:45) PERIORBITAL SWELLING ciprofloxacin [From CIPRO] Allergy (Unknown, Verified 07/12/24 14:45) Nausea iodine Allergy (Unknown, Verified 07/12/24 14:45) from the CTSCAn had sweling periorbital metronidazole [Flagyl] Allergy (Unknown, Verified 07/12/24 14:45) headaches Sulfa (Sulfonamide Antibiotics) Allergy (Unknown, Verified 07/12/24 14:45) headache, severe migraine sulfamethoxazole [From BACTRIM] Allergy (Unknown, Verified 07/12/24 14:45) HEADACHE trimethoprim [From BACTRIM] Allergy (Unknown, Verified 07/12/24 14:45) HEADACHE Tobacco use date assessed: 03/26/24 Dental Screening Dental Screen Date: 03/26/24 [facility] Medical History (Updated 07/12/24 @ 14:58 by Andre Tipton MD) Overactive adrenal gland Hyperventilation syndrome Vitamin D deficiency LLQ pain Abdominal pain Impacted cerumen of right ear Rectal bleed Blood pressure elevated without history of HTN Breast cancer screening by mammogram Hyperventilation syndrome Diverticular disease Mitral valve prolapse Vitamin D deficiency Hypercholesterolemia Polycystic ovaries Paroxysmal supraventricular tachycardia Surgical History History of colonoscopy History of polycystic ovaries S/P colon resection History of lymph node excision History of cardiac radiofrequency ablation Family History Father Myocardial infarction CVD (cardiovascular disease) Hypertension Mother CHF (congestive heart failure) Hypertension CAD (coronary artery disease) Maternal Grandfather Brain tumor Brother No problems noted. Sister No problems noted. Son No problems noted. Social History Housing: House Alcohol intake: never Patient Tobacco Use Status: Never used Tobacco Tobacco use type: Cigarette e-Cigarette/Vaping Use: Never Used Second Hand Smoke Exposure: No service: No Current occupational status: unemployed Cognitive needs: No Hearing needs: No Vision needs: Yes (reading glasses) Questionnaire Thrive Questionnaire Date Thrive assessed: 01/19/24 I am a: Patient Are you currently unemployed and looking for a job?: No CHANELL-7 AMB Questionnaire CHANELL-7 Date CHANELL - 7 assessed: 03/26/24 Source: Developed by Drs. Ta Redding, Arleen Mckeon, Santosh Rodriguez and colleagues, with an educational donna from [employer]. Physical exam (Primary Care) Vital Signs: Last Vital Signs Temp 97.3 F 07/12/24 14:42 Pulse 75 07/12/24 14:42 BP 116/70 07/12/24 14:42 Pulse Ox 99 07/12/24 14:42 Oxygen Delivery Method Room Air 07/12/24 14:42 BMI result Body Mass Index 28.3 Tobacco/Smoking Status: Tobacco use Status Tobacco use date assessed 03/26/24 07/12/24 14:46 Patient Tobacco Use Status Never used Tobacco 07/12/24 14:46 Tobacco use type Cigarette 07/12/24 14:46 e-Cigarette/Vaping Use Never Used 07/12/24 14:46 Thrive Assessment: Date of Thrive Assessment Date Thrive assessed 01/19/24 07/12/24 14:46 Const General: alert; No acute distress Eyes Conjunctivae: conjunctivae normal Resp Auscultation: clear to auscultation bilaterally Cardio Rate: regular rate Rhythm: regular rhythm GI Inspection: Yes normal to inspection Extrem General: Yes normal to inspection and No edema Coding Level of Care Code Est Pt Level 4 (36406) Diagnoses Overweight (BMI 25.0-29.9) E66.3 Hypercholesterolemia E78.00 Generalized anxiety disorder F41.1 Paroxysmal supraventricular tachycardia I47.1 Hip osteoarthritis M16.9 Sciatic nerve pain M54.30 Assessment & Plan Assessment & Plan (1) Overweight (BMI 25.0-29.9): Code(s): E66.3 - Overweight Category: Medical Plan: Diet and exercise (2) Hypercholesterolemia: Code(s): E78.00 - Pure hypercholesterolemia, unspecified Category: Medical Plan: Avoid fried foods, chicken skin, eggs, butter margarine, pastries and meat. Be it pork or beef they have a lot of cholesterol LDL goal of less than 130 and triglyceride of less than 150 (3) Generalized anxiety disorder: Comment: Panic attacks. counselling private- DR. Garcia. monday zoom call Code(s): F41.1 - Generalized anxiety disorder Category: Medical Plan: Continue with counseling and therapy on lorazepam as needed (4) Paroxysmal supraventricular tachycardia: Comment: November 2014 Dr. Elkins [facility] cardiac MRI 2018 echo 60-65% mild MR January [address] Broderick and [place] Dr. Ramey April 2019 cardiac MRI ejection fraction 57% normal echocardiogram October 2021 ejection fraction 45-50% Code(s): I47.1 - Supraventricular tachycardia Category: Medical Plan: Continue with metoprolol as needed (5) Hip osteoarthritis: Comment: 02/2024 Code(s): M16.9 - Osteoarthritis of hip, unspecified Category: Medical (6) Sciatic nerve pain: Code(s): M54.30 - Sciatica, unspecified side Category: Medical Plan History of Present Illness The patient is a 64-year-old female presenting with generalized musculoskeletal pain and stiffness, primarily involving the hips and knees, for a follow-up evaluation. She has a pre-existing diagnosis of osteoarthritis affecting the knees and hips, with symptoms reported to have worsened since February 2024. The stiffness, described as severe, particularly in the hips, becomes more pronounced after periods of activity like walking. Pain radiates from the buttocks to the knees, suggestive of sciatica, and is accompanied by alternating bilateral groin discomfort. Daily routines, especially housework, exacerbate these symptoms. The patient's ability to engage in regular exercise is limited due to pain radiating down the legs, possibly related to her weight increase. Health Maintenance - Mammogram last performed in February 2024. - Echocardiogram in June 2024 showing normal left ventricular systolic function with an ejection fraction of 56%. - Most recent blood work in 2023 noted normal blood count, electrolytes, kidney function, and liver function but highlighted elevated LDL cholesterol at 137 mg/dL and low vitamin D levels. - Discussion on cholesterol management with diet and exercise aiming for LDL goal less than 130 mg/dL and triglycerides less than 150 mg/dL. - Referral for orthopedics for joint evaluation. - Recommendation for physical therapy, although delayed pending orthopedic consultation. - Shingles vaccination recommended during the visit. Social History - The patient is actively engaged in domestic tasks, including vacuuming, dusting, cleaning, and cooking, which involves standing and physical activity. - The patient used to walk four miles regularly but is now limited by pain. - Lifestyle includes limited sitting and driving, with reports of discomfort especially when sitting on soft surfaces. - Discussed overworking and weight management as factors influencing joint pain and overall health. Review of Systems - Musculoskeletal: Reports severe stiffness in the hips, knee pain, and bilateral groin discomfort. Describes radiating pain from the buttocks to the knees. - Neurological: Denies any new neurological symptoms except for sciatic-like pain distribution. - Psychiatric: Regular follow-up and management of generalized anxiety disorder; continues lorazepam as needed. - Cardiovascular: Denies recent episodes of paroxysmal supraventricular tachycardia. - Constitutional: Reports weight gain of 30 pounds. Physical Exam - Musculoskeletal- Notable stiffness during hip movements, especially upon weight-bearing activity. Results - Labs: LDL cholesterol elevated at 137 mg/dL, low vitamin D level. - Tests: Echocardiogram from June 2024 demonstrating normal left ventricular systolic function with an ejection fraction of 56%. Plan I have referred the patient to orthopedics to evaluate her worsening symptoms of osteoarthritis and associated sciatica, considering her reported limitations in daily activities and walking. The focus will be on determining if advanced imaging like an MRI is necessary. I emphasized on managing her physical activity levels to reduce joint strain and address weight gain, which likely contributes to her musculoskeletal issues. Cholesterol management will continue with the goal of reducing LDL levels under 130 mg/dL through pharmacological and lifestyle interventions. Monitoring her weight and implementing diet and exercise changes are recommended. Psychiatric care will proceed with lorazepam as needed for anxiety, and I discussed the importance of completing the shingles vaccination available through pharmacies. Patient was informed and verbally consented to the use of an ambient scribe for clinic note documentation during this visit. Discussion Notes I discussed with the patient regarding her osteoarthritis management, explaining that her symptoms warrant further evaluation by orthopedics. We addressed the constraint often imposed by insurance requiring physical therapy prior to MRI, yet an orthopedic assessment might expedite imaging if deemed necessary. We extensively covered weight impact on her musculoskeletal health and her previous successful activity levels. I encouraged continuity of lifestyle modifications, cholesterol management with dietary changes, and reiterated the targets for LDL and triglycerides. During our discussion, I brought up the shingles vaccine, underscoring the benefits of immunization. For anxiety management, we reviewed her current lorazepam use and ensured the patient continues follow-ups. The rationale behind lab work to monitor her LDL and vitamin D was ensured. A three- month follow-up was advised for re-evaluation of her condition. Patient Instructions - Follow up with orthopedic referral as scheduled. - Continue lorazepam as prescribed for anxiety; reach out if symptoms worsen. - Maintain regular lifestyle including diet and exercise adjustments to manage weight and cholesterol. - Complete fasting blood work as ordered. - Consider shingles vaccination at a local pharmacy. - Monitor symptoms and return if pain worsens or new symptoms appear. - Schedule next visit in three months for re-evaluation. Orders: Orders Complete Blood Count Auto Diff Today E78.00 - Pure hypercholesterolemia, unspec ified Free T4 (Free Thyroxine) Today E78.00 - Pure hypercholesterolemia, unspecified Thyroid Stimulating Hormone Today E78.00 - Pure hypercholesterolemia, unspecified Comprehensive Met. Panel Today E78.00 - Pure hypercholesterolemia, unspecified Lipid Panel Today E78.00 - Pure hypercholesterolemia, unspecified Vitamin B12 and Folate Today E78.00 - Pure hypercholesterolemia, unspecified Vitamin D 25-OH Total Today E78.00 - Pure hypercholesterolemia, unspecified Magnesium Today E78.00 - Pure hypercholesterolemia, unspecified Referrals Orthopedics Referral M16.9 - Osteoarthritis of hip, unspecified, M54.30 - Sciatica, unspecified side
[2024-07-12 14:42] VITALS: BP 116/70; PULSE 75; TEMP 36.3; O2SAT 99; BMI 28.3
== END 2024-07-12 15:05 | disposition home or self-care (01) ==
LOC: HO.HMCH 14:13
PROVIDERS: PCP Internal Medicine; Visit Provider Internal Medicine
DX: E66.3 Overweight (principal); E78.00 Pure hypercholesterolemia, unspecified; F41.1 Generalized anxiety disorder; I47.10 Supraventricular tachycardia, unspecified; M16.9 Osteoarthritis of hip, unspecified; M54.30 Sciatica, unspecified side

== ENCOUNTER → 2024-07-12 14:12 | Outpatient (BNVA) | payer MEDICARE, SELFPAY | PROVIDERS: PCP Internal Medicine; Visit Provider Internal Medicine | DX: M17.0 Bilateral primary osteoarthritis of knee (principal); M16.0 Bilateral primary osteoarthritis of hip; E66.3 Overweight; E78.00 Pure hypercholesterolemia, unspecified; F41.1 Generalized anxiety disorder; I47.10 Supraventricular tachycardia, unspecified; M54.30 Sciatica, unspecified side; Z68.28 Body mass index [BMI] 28.0-28.9, adult | CPT/HCPCS: 99212 ==

== ENCOUNTER 2024-09-23 08:40 | Outpatient (AMB) | payer MEDICARE, SELFPAY ==
--- OUTSIDE RECORDS SUMMARY | 2024-09-23 08:48 | XMS_ITS | Patient Health Record ---
Author Organization [facility] Address [address] [place] [address] [address] [place] [address] Care Team Providers Care Xm1 Tank Driver Name Role Phone CIERRA ROBERTS M.D. Primary Care Provider Lorena Crump Unavailable [phone] Allergies Allergen (clinical drug ingredient) Drug/Non Drug Allergy documented on EMR Reaction Allergy Type Onset Date Status sulfamethoxazole / trimethoprim BACTRIM Headache Drug Allergy Active ciprofloxacin Cipro Unknown Drug Allergy Act edwin metronidazole Flagyl Unknown Drug Allergy Act edwin Iodine Swelling Drug Allergy Active Reason For Referral No Information Medications Medication SIG (Take, Route, Frequency, Duration) Notes Start Date End Date Status Metoprolol Succinate ER 25 MG 1 tablet Orally Once a day 12.5MG TWICE A DAY Active Ativan 0.5 MG 1/2 Orally Once a day 1/2 NEEDED Active Estradiol 10 MCG 1 _insert Vaginal THRICE A WEEK; Duration: 90 days 09/19/2023 Active Estradiol Vaginal Cream 0.01% 1 Gram to the affected area Vaginally Twice a week; Duration: 90 days Please use good rx if cheaper. ID [id number], BIN: [id number], PCN: [id number], GROUP: [id number] 09/20/2023 Active Social [...] Status Risk Notes Problem Postmenopausal atrophic vaginitis (81862433) Postmenopausal atrophic vaginitis (N95.2) Active confirmed Problem Urinary incontinence (287055002) Unspecified urinary incontinence (R32) Active confirmed Problem Atrophy of vulva (593999121) Atrophy of vulva (N90.5) Active confirmed Problem Panic disorder without agoraphobia (17018207) Panic disorder without agoraphobia (300.01) Active confirmed Major Problem Cardiac arrhythmia (566010922) Other specified cardiac dysrhythmias (427.89) Active confirmed Major Problem Postmenopausal atrophic vaginitis (28467102) Postmenopausal atrophic vaginitis (627.3) Active confirmed Diag Problem Gynecological examination normal (299548774764595) Routine gynecological examination (V72.31) Active confirmed Major Problem Screening for malignant neoplasm of colon (492245777) Special screening for malignant neoplasms, colon (V76.51) Active confirmed Major Plan Of Treatment Pending Test Test Name [...] Screening 09/19/2023 Next Appt Details Provider Name:Lorena cardenas, 10/18/2024 09:30:00 AM, [address], [address], [place], [address], Insurance Providers Payer Name Payer Address Payer Phone Subscriber Number Group Number Insured Name Patient Relationship to Insured Coverage Start Date Coverage End Date BCBS MEDICARE PPO [address] [place] [address] [id number] ANGEL MAY Self - patient is the [...]
--- OUTSIDE RECORDS SUMMARY | 2024-09-23 08:48 | XMS_ITS | Clinical Summary ---
Author Organization [address] [facility] Address [address] [place] [address] Phone Care Team Providers Care Life Skills Instructor Name Role Phone Andre Tipton MD Primary Care Provider [phone] Encounters Date Type Department Care Team Description 09/13/2024 11:15 PM EDT Ancillary Procedure [facility] Cardiology [facility] - [facility] [address] [facility] [address] [place] [address] 08/06/2024 9:00 AM EDT Ancillary Procedure [facility] Cardiology [facility] - [facility] [address] [facility] [address] [place] [address] 07/11/2024 7:25 PM EDT Ancillary Procedure [facility] - [facility] [address] [facility] [address] [place] [address] from Last 3 Months Family History Medical [...] Panel) 02/06/2022 Colorectal Cancer Screening: Colonoscopy 02/06/2022 HIV Screening 02/06/2022 Hepatitis C Screening 02/06/2022 Medicare Annual Wellness Visit 02/06/2022 Social Influencers of Health Screening 02/06/2022 COVID-19 Vaccine (4 - 2023-2 5 season) 2023 04/09/2021, 08/18/2020, 06/16/2020 Depression Screening 03/06/2024 Hypertension/CHF/CAD Annual BMP Blood Test 10/19/2024 10/20/2023 Influenza Vaccine (#1) 2024 RSV Immunization Adult Patients (1 - 1-dose 75+ series) 2037 HIB Vaccines Aged Out No longer eligi [...] this topic Medical Devices Implanted Type Area Mink Rancher Device Identifier Shelf Expiration Date Model / Serial / Lot [facility] Biomonitor Iiim [id number] Implanted:07/2022 (Quantity not on file) Cardiac Loop Recorder [employer] BIOMONITOR IIIM / [id number] / Bsci-Crm [id number] Implanted:10/06 (Quantity not on file) Cardiac Loop Recorder [place] CARD RHYTHM MGMT M312 / [id number] / Procedures Procedure Name Priority Date/Time Associated Diagnosis Comments CARDIAC DEVICE CHECK- REMOTE- MURJ Routine 09/13/2024 11:13 PM EDT CARDIAC DEVICE CHECK- REMOTE- MURJ Routine 08/06/2024 8:58 AM EDT CARDIAC DEVICE CHECK- REMOTE- MURJ Routine 07/11/2024 7:23 PM EDT from Last 3 Months Results * Cardiac device check - Remote- MURJ (09/13/2024 11:13 PM EDT) Only the most recent of3 resultswithin the time period is included. Date Time Interrogation Session [id number] CV DEVICE CHECK Type Interrogation Session Remote Scheduled CV DEVICE CHECK Implantable Pulse Generator Mink Rancher BSX CV DEVICE CHECK Implantable Pulse Generator Type ILR CV DEVICE CHECK Implantable Pulse Generator Model M312 CV DEVICE CHECK Implantable Pulse Generator Serial Number [id number] CV DEVICE CHECK Implantable Pulse Generator Implant Date 20231103 CV DEVICE CHECK Battery Status Beginning of Service CV DEVICE CHECK Atrial Tachy Statistic AT/AF Ruby Percent 1.00 CV DEVICE CHECK Date of Service 2024-09-13 CV DEVICE CHECK Anatomical Region Laterality Modality Device Interroga tion 09/08/2024 11:5 6 PM EDT Impressions 09/13/2024 3:53 PM EDT Normal Remote: No Events * This is a normal remote diagnostic device check * Alerts or events: None * Battery data was reviewed * Battery status: OLIVA, * Presenting rhythm reviewed * Heart Rate Histograms reviewed Additional Notes: Undersensing PVC's Narrative Procedure Note Inderjit Broderick MD - 09/13/2024 IMPRESSION: Normal Remote: No Events * This is a normal remote diagnostic device check * Alerts or events: None * Battery data was reviewed * Battery status: OLIVA, * Presenting rhythm reviewed * Heart Rate Histograms reviewed Additional Notes: Undersensing PVC's us Inderjit Broderick MD CV IMPLANTABLE CARDIAC DEVICE PROCEDURES Final Result from Last 3 Months Insurance BLUE CROSS - [place] MEDICARE ADVANTAGE Care Teams Life Skills Instructor Relationship Specialty Start Date End Date Andre Tipton MD [address] [place] [address] Dr [address] [facility] [place] [address] PCP - General Internal Medicine 02/13/15
--- OUTSIDE RECORDS SUMMARY | 2024-09-23 08:48 | XMS_ITS | Patient Health Record ---
Author Organization [facility] Address [address] [place] [address] Care Team Providers Care Route Driver Salesperson Name Role Phone Po Andre MG Primary Care Provider Ta Srinivasan [phone] Allergies Allergen (clinical drug ingredient) Drug/Non Drug Allergy documented on EMR Reaction Allergy Type Onset Date Status Iodine Unknown Drug Allergy Active CT Scan Dye (uncoded) Unknown Allergy Active Reason For Referral No Information Medications Medication SIG (Take, Route, Frequency, Duration) Notes Start Date End Date Status Colace 100 MG 1 capsule as needed Orally Once a day Active Dicyclomine HCl 10 MG 1-2 capsules Orall y Four times a day as needed for abdominal bloating/cramps/discomf ort 01/14/2015 Not-Taking Metoprolol Tartrate 25 MG TAKE 1/2 TABLE T BY MOUTH TWICE A DAY Oral for 90 Active LORazepam 0.5 MG 1/2 tablet as needed Oral Twice a day Active Problems Problem Type SNOMED Code ICD Code Onset Dates Problem Status W/U Status Risk Notes Problem 5406205 Diverticulitis o f large intestine without perforation or abscess without bleeding (K57.32) Active confirmed Problem 263870385 Encounter for screening for malignant neoplasm of colon (Z12.11) Active confirmed Problem 89650195 Irritable bowel syndrome without diarrhea (K58.9) Active confirmed Problem Screening for malignant neoplasm of rectum (153691795) Encounter for screening for malignant neoplasm of rectum (Z12.12) Active confirmed Plan Of Treatment Future Test Test Name Order Date COLONOSCOPY 04/02/2015 Insurance Providers Payer Name Payer Address Payer Phone Subscriber Number Group Number Insured Name Patient Relationship to Insured Coverage Start Date Coverage End Date [facility] [address] [place], [place] [id number] MAGO Lozada ANGEL Self - patient is the insured Medical (General) History Medical History History ICD Code Denies CT,DM,CVA,Lung disease,renal dise ase Diagnosed with diverticuliti s early 11/2014 at [facility] -treated with outpt antibiotics-Augmentin(didn't tolerate Cipro/Flagyl)--she describes an abdominal/pelvic CT and pelvic U/S--had a F/U CT on 01/09/15 which showed improvement and no active diverticulitis Cardiac arrhythmmias--on Met oprolol--Bigeminy/Trigeminy and SVT by her report--- she reports that she is going to have a cardiac ablation on 11/26/14 at [facility]--reports that it was not successful--wearing a loop recorder at the present time as of 01/14/15--she also sees Dr. Lacey and is now followed by Dr. Harrison at [facility] instead of the doctor in [place] Surgical History Surgery Date(Month/Year) cyst removal from ovary 1980 benign lymph node removed 1999
--- OUTSIDE RECORDS SUMMARY | 2024-09-23 08:48 | XMS_ITS | Encounter Summary ---
Author Organization [facility] Address [address] [facility] [address] [place] [address] Phone Care Team Providers Care Briar Shop Supervisor Name Role Phone Andre Tipton MD Primary Care Provider [phone] Sandra Bills MD, MS Unavailable [phone] Inderjit Broderick MD Unavailable [phone] Encounter Details Date Type Department Care Team (Late st Contact Info) Description 12/19/2016 [facility] [address] [place] [address] Social History Tobacco Use Types Packs/Day Years Used Date Smoking Tobacco: Never Alcohol Use Standard Drinks/Week Comments No 0 (1 standard drink = 0.6 oz pur e alcohol) Comments Unknown Sex and Gender Information Value Date Recorded Sex Assigned at Not on file Legal Sex Female 5:46 PM EST Gender Identity Not on file Sexual Orientation Not on file documented as of this encounter Plan of Treatment Not on file documented as of this encounter Visit Diagnoses Not on filedocumented in this encounter Care Teams Briar Shop Supervisor Relationship Specialty Start Date End Date Andre Tipton MD [address] [place] [address] PCP - General Internal Medicine 03/03/15 Sandra Bills MD, MS [address] [place] [address] [address] [place] [address] [email or web address] Cardiology 06/20/23 Inderjit Broderick MD [address] [place] [address] [address] [place] [address] Cardiology 06/20/23 documented as of this encounter Additional Source Comments The information contained in this document represents components of the legal health record. It is not the complete legal health record.[facility]
[2024-09-23 08:51] VITALS: BMI 28.2
--- NOTE | 2024-09-23 08:51 | A.OFFVIS_ITS ---
Vital Signs 09/23/24 08:51 Height 5 ft 3 in Weight 159 lb BMI 28.2 Intake Visit Reasons: New Patient - Bilateral Hip Pain Intake Note: Catherine is a 64 year old female who presents today as a new patient with complaints of Bilateral Hip Pain. Patient reports her pain has been going on for about 7 months,her pain is throughout the hip and radiates down to her knees on the medial aspect of her leg, into the anterior aspect of the knee. Both of her hips are equally symptomatic. She takes Ibuprofen PRN, No previous treatments. Allergies Iodinated Contrast Media (IV CONTRAST) Allergy (Intermediate, Verified 09/23/24 09:04) PERIORBITAL SWELLING ciprofloxacin (From CIPRO) Allergy (Unknown, Verified 09/23/24 09:04) Nausea iodine Allergy (Unknown, Verified 09/23/24 09:04) from the CTSCAn had sweling periorbital metronidazole (Flagyl) Allergy (Unknown, Verified 09/23/24 09:04) headaches Sulfa (Sulfonamide Antibiotics) Allergy (Unknown, Verified 09/23/24 09:04) headache, severe migraine sulfamethoxazole (From BACTRIM) Allergy (Unknown, Verified 09/23/24 09:04) HEADACHE trimethoprim (From BACTRIM) Allergy (Unknown, Verified 09/23/24 09:04) HEADACHE HPI HPI New Patient - Bilateral Hip Pain: Details: This is a 64 yo with bilateral hip pain. She describes pain in her buttocks when she sits down that radiates down posterolaterally to her knee. This is bilateral. He has been going on for close to a year now. She denies injury. She states she occasionally has groin pain on the right. She wants to be more active but can not because when her heart rate gets too fast she has beats of supraventricular tachycardia and has been seeing a data entry coordinator but states that there is no current treatment plan. This makes it difficult because he has to keep her heart rate below 120 so she exercise her heart. She wants to be more active and lose weight. She has not done physical therapy. [facility] Medical History Overactive adrenal gland Hyperventilation syndrome Vitamin D deficiency LLQ pain Abdominal pain Impacted cerumen of right ear Rectal bleed Blood pressure elevated without history of HTN Breast cancer screening by mammogram Hyperventilation syndrome Diverticular disease Mitral valve prolapse Vitamin D deficiency Hypercholesterolemia Polycystic ovaries Paroxysmal supraventricular tachycardia Surgical History (Reviewed 09/23/24 @ 09:05 by Izabela Moon [facility]) History of colonoscopy History of polycystic ovaries S/P colon resection History of lymph node excision History of cardiac radiofrequency ablation Family History (Reviewed 09/23/24 @ 09:05 by Izabela Moon [facility]) Father Myocardial infarction CVD (cardiovascular disease) Hypertension Mother CHF (congestive heart failure) Hypertension CAD (coronary artery disease) Maternal Grandfather Brain tumor Brother No problems noted. Sister No problems noted. Son No problems noted. Social History (Reviewed 09/23/24 @ 09:05 by Izabela Moon [facility]) Housing: House Alcohol intake: never Patient Tobacco Use Status: Never used Tobacco Tobacco use type: Cigarette e-Cigarette/Vaping Use: Never Used Second Hand Smoke Exposure: No service: No Current occupational status: unemployed Cognitive needs: No Hearing needs: No Vision needs: Yes (reading glasses) Physical Exam Vital Signs: BMI result Body Mass Index 28.2 Extrem Other: On exam she has no tenderness to palpation over the lateral hips and full range of motion bilateral hips with mild groin pain on hyper flexion and internal rotation right hip. Results Reviewed Results Reviewed: I personally reviewed relevant radiographs. Very mild bilateral hip OA Assessment & Plan Assessment & Plan (1) Lumbar radiculopathy: Code(s): M54.16 - Radiculopathy, lumbar region Category: Medical Plan: This is a 62-year-old woman with complaints of bilateral radiating buttock and leg pain. I do not think this is coming from her hips. I recommend physical therapy and an MRI was ordered or her radicular symptoms and I referred her to pain management for nonoperative management of some of musculoskeletal complaints especially symptoms of lumbar radiculopathy. PRN follw up with ortho office. Orders: Orders MR lumbar spine wo con Today M54.16 - Radiculopathy, lumbar region PT Evaluation and Treatment Today M54.16 - Radiculopathy, lumbar region Referrals Pain Management Referral M54.30 - Sciatica, unspecified side Coding Level of Care Code New Pt Level 3 (92617) Diagnoses Lumbar radiculopathy M54.16
== END 2024-09-23 10:28 | disposition home or self-care (01) ==
LOC: HO.HOS 08:41
PROVIDERS: PCP Internal Medicine; Visit Provider Orthopaedic Surgery
DX: M54.16 Radiculopathy, lumbar region (principal)
CPT/HCPCS: 99203

== ENCOUNTER → 2024-09-23 08:40 | Outpatient (BNVA) | payer MEDICARE, SELFPAY | PROVIDERS: PCP Internal Medicine; Visit Provider Orthopaedic Surgery | DX: M54.16 Radiculopathy, lumbar region (principal) | CPT/HCPCS: 99202 ==

== ENCOUNTER 2024-11-14 08:45 | Outpatient (AMB) | payer MEDICARE, SELFPAY ==
--- OUTSIDE RECORDS SUMMARY | 2024-09-24 05:40 | XMS_ITS ---
Author Organization [facility] Address [address] [facility] [address] [place] [address] Care Team Providers Care Photogeologist Name Role Phone CIERRA ROBERTS M.D. Primary Care Provider Lorena Crump Unavailable [phone] REASON FOR VISIT HR MEDICARE PE Encounters Encounter Location Date Provider Diagnosis [facility] [address] [place] [address] [address] [place] [address] 09/24/2024 Lorena Jason Plan Of Treatment Next Appt Details Provider Name:Lorena richashley, 10/21/2025 09:40:00 AM, [address] [place] [address], [address], [place], [address], Progress Notes * ANGEL HERRERADOB: [birth year] (64 yo F)Acc No.[id number]:09/24/2024 PROGRESS NOTES Patient: Janeth ANGEL LOPEZ Appointment Provider: Ashley Jason M.D. :1960 A ge:64 Y S ex:Female Date:09/24/2024 Address:[address] [place], [place] [phone] Pcp:CIERRA ROBERTS M.D. Subjective: * Chief Complaints: * 1 . HR MEDICARE PE. * Medical History: Objective: * Vitals: Assessment: Plan: * Treatment: * Images: Billing Information: * Visit Code: * Procedure Codes: * Electronic signature of Lynn Jason MD on 11/14/2024 at 09:49 AM EDT Sign off status: Pending * Appointment Provider: Ashley Jason M.D. Date: 0 09/24/2024 Generated for Jake john/Bhaskar/Taisha on: 0 11/14/2024 09:49 AM EDT
--- NOTE | 2024-11-14 08:48 | MHC.PC.OV ---
Vital Signs 11/14/24 08:49 Height 5 ft 3 in Weight 163 lb 6 oz BMI 28.9 BP 116/64 Blood Pressure Location Lt brachial Position Sitting Pulse 68 Pulse Source Pulse Oximeter Temp 97.0 F Temp Source Temporal Artery Scan Pulse Oximetry (%) 97 Oxygen Delivery Method Room Air Intake Visit Reasons: chanell Allergies Iodinated Contrast Media (IV CONTRAST) Allergy (Intermediate, Verified 11/14/24 08:52) PERIORBITAL SWELLING ciprofloxacin (From CIPRO) Allergy (Unknown, Verified 11/14/24 08:52) Nausea iodine Allergy (Unknown, Verified 11/14/24 08:52) from the CTSCAn had sweling periorbital metronidazole (Flagyl) Allergy (Unknown, Verified 11/14/24 08:52) headaches Sulfa (Sulfonamide Antibiotics) Allergy (Unknown, Verified 11/14/24 08:52) headache, severe migraine sulfamethoxazole (From BACTRIM) Allergy (Unknown, Verified 11/14/24 08:52) HEADACHE trimethoprim (From BACTRIM) Allergy (Unknown, Verified 11/14/24 08:52) HEADACHE Medication List - Last Reconciled 11/14/24 by Andre Tipton MD lorazepam 0.5 mg orally TID or 4x a day or( 2tabs Twice a day) as directed PRN; metoprolol tartrate 12.5 mg PO BID PRN Tobacco use date assessed: 11/14/24 Dental Screening Dental Screen Date: 11/14/24 Did you have a dental visit in the last 12 months?: Yes Did you have a dental problem in the last 6 months where you did not have access to dental care?: No Was dental information given to patient?: Patient has dentist [facility] Medical History (Updated 11/14/24 @ 09:02 by Andre Tipton MD) Overweight Overactive adrenal gland Hyperventilation syndrome Vitamin D deficiency LLQ pain Abdominal pain Impacted cerumen of right ear Rectal bleed Blood pressure elevated without history of HTN Breast cancer screening by mammogram Hyperventilation syndrome Diverticular disease Mitral valve prolapse Vitamin D deficiency Hypercholesterolemia Polycystic ovaries Paroxysmal supraventricular tachycardia Surgical History History of colonoscopy History of polycystic ovaries S/P colon resection History of lymph node excision History of cardiac radiofrequency ablation Family History Father Myocardial infarction CVD (cardiovascular disease) Hypertension Mother CHF (congestive heart failure) Hypertension CAD (coronary artery disease) Maternal Grandfather Brain tumor Brother No problems noted. Sister No problems noted. Son No problems noted. Social History Housing: House Alcohol intake: never Patient Tobacco Use Status: Never used Tobacco e-Cigarette/Vaping Use: Never Used Second Hand Smoke Exposure: No service: No Current occupational status: unemployed Cognitive needs: No Hearing needs: No Vision needs: Yes (reading glasses) Questionnaire PHQ-9 Over the last 2 weeks, how often have you been bothered by any of the following problems? 1. Little interest or pleasure in doing things: not at all 2. Feeling down, depressed, or hopeless: not at all 3. Trouble falling or staying asleep, or sleeping too much: not at all 4. Feeling tired or having little energy: not at all 5. Poor appetite or overeating: not at all 6. Feeling bad about yourself - or that you are a failure or have let yourself or your family down: not at all 7. Trouble concentrating on things, such as reading the newspaper or watching television: not at all 8. Moving or speaking so slowly that other people could have noticed. Or the opposite - being so fidgety or restless that you have been moving around a lot more than usual: not at all 9. Thoughts that you would be better off or of hurting yourself in some way: not at all Total score: 0 Source: Developed by Drs. Ta Reddign, Arleen Mckeon, Santosh Rodriguez and colleagues, with an educational donna from [employer]. Thrive Questionnaire Date Thrive assessed: 11/14/24 I am a: Patient What is your living situation today?: I have a steady place to live Within the past 12 months, did the food you bought not last and you didn't have the money to get more?: I choose not to answer this question Within the past 12 months, did you worry whether your food would run out before you got money to buy more?: I choose not to answer this question Do you have trouble paying for medicines?: No Do you have trouble getting transportation to medical appointments?: No Do you have trouble paying your heating and electricity bill?: No Do you have trouble taking care of your child, family member or friend?: No Do you have trouble with day-to-day activities such as bathing, preparing meals, shopping, managing finances, etc.?: No Are you currently unemployed and looking for a job?: No Are you interested in more education?: No Please select the resources that you would like help with: None Currently or been in a relationship where the following occur: I choose not to answer THRIVE Score: 0 AUDIT C Alcohol Use Questionnaire (AUDIT-C) 1. How often do you have a drink containing alcohol?: Never 3. How often do you have six or more drinks on one occasion?: Never Total Score: 0 CHANELL-7 AMB Questionnaire CHANELL-7 Date CHANELL - 7 assessed: 03/26/24 Feeling nervous, anxious, or on edge: 1 = Several days Not being able to stop or control worryin = More than half the days Worrying too much about different things: 2 = More than half the days Trouble relaxin = Several days Being so restless that it is hard to sit still: 1 = Several days Becoming easily annoyed or irritable: 1 = Several days Feeling afraid as if something awful might happen: 0 = Not at all Total CHANELL-7 score (0-4 normal; 5-9 mild; 10-14 moderate; 15-21 severe): 8 Source: Developed by Drs. Ta Redding, Arleen Mckeon, Santosh Rodriguez and colleagues, with an educational donna from [employer]. CHANELL-7 Assessment Billing CHANELL-7 Assessment Tool: CHANELL-7 Assessment 84471 Physical exam (Primary Care) Vital Signs: Last Vital Signs Temp 97.0 F 11/14/24 08:49 Pulse 68 11/14/24 08:49 BP 116/64 11/14/24 08:49 Pulse Ox 97 11/14/24 08:49 Oxygen Delivery Method Room Air 11/14/24 08:49 BMI result Body Mass Index 28.9 Tobacco/Smoking Status: Tobacco use Status Tobacco use date assessed 11/14/24 11/14/24 08:54 Patient Tobacco Use Status Never used Tobacco 11/14/24 08:54 Tobacco use type 11/14/24 08:54 e-Cigarette/Vaping Use Never Used 11/14/24 08:54 PHQ-9: PHQ-9 Score PHQ-9: Total score 0 11/14/24 09:03 Thrive Assessment: Date of Thrive Assessment Date Thrive assessed 11/14/24 11/14/24 08:54 Currently or been in a relationship where the following occur: I choose not to answer Const General: alert; No acute distress Eyes Conjunctivae: conjunctivae normal Resp Auscultation: clear to auscultation bilaterally Cardio Rate: regular rate Rhythm: regular rhythm GI Inspection: Yes normal to inspection Extrem General: Yes normal to inspection and No edema Coding Level of Care Code Est Pt Level 4 (33696) Complex EM visit Add On G2211 Diagnoses Paroxysmal supraventricular tachycardia I47.1 Hypercholesterolemia E78.00 Overweight (BMI 25.0-29.9) E66.3 Lumbar radiculopathy M54.16 Generalized anxiety disorder F41.1 Additional Codes CHANELL-7 Assessment Billing - CHANELL-7 Assessment Tool: CHANELL-7 Assessment 01876 ([id number]) Assessment & Plan Assessment & Plan (1) Paroxysmal supraventricular tachycardia: Comment: November 2014 Dr. Elkins [facility] cardiac MRI 2018 echo 60-65% mild MR January [address] Broderick and [place] Dr. Ramey April 2019 cardiac MRI ejection fraction 57% normal echocardiogram October 2021 ejection fraction 45-50% Code(s): I47.1 - Supraventricular tachycardia Category: Medical Plan: Continue to monitor. Patient is requested to have blood work done. On metoprolol 12.5 mg twice a day (2) Hypercholesterolemia: Code(s): E78.00 - Pure hypercholesterolemia, unspecified Category: Medical Plan: Avoid fried foods, chicken skin, eggs, butter margarine, pastries and meat. Be it pork or beef they have a lot of cholesterol LDL goal of less than 130 and triglyceride of less than 150 (3) Overweight (BMI 25.0-29.9): Code(s): E66.3 - Overweight Category: Medical Plan: Diet and exercise (4) Lumbar radiculopathy: Code(s): M54.16 - Radiculopathy, lumbar region Category: Medical Plan: Patient was seen by ortho for the hip pain and concerned about lumbar radiculopathy and sent for physical therapy. MRI ordered (5) Generalized anxiety disorder: Comment: Panic attacks. counselling private- DR. Garcia. AQ monday zoom call Code(s): F41.1 - Generalized anxiety disorder Category: Medical Plan: Continue with present medication and counseling and therapy Plan History of Present Illness The patient is a 64-year-old female presenting for a follow-up visit. She has a history of hypercholesterolemia, with the last recorded LDL level being 137 mg/dL. The patient is on a cholesterol management plan with a goal of reducing LDL to less than 130 mg/dL and triglycerides to less than 150 mg/dL. The patient also has a history of paroxysmal supraventricular tachycardia (PSVT) and experiences anxiety related to her heart condition. She is currently taking metoprolol 12.5 mg twice a day and Ativan to manage anxiety symptoms associated with her heart condition. The patient reports mixed urinary incontinence, which has been a persistent issue. She has a history of cholelithiasis and tubular adenoma, with the last colonoscopy performed in October 2023. The patient was diagnosed with lumbar radiculopathy in September 2020, following complaints of low back pain and bilateral hip pain. She was referred to orthopedics, where physical therapy was recommended, and an MRI was ordered. Her blood work from August 2023 indicated normal blood counts and good renal function, but a vitamin D level of 28 ng/mL, indicating deficiency. Health Maintenance - Mammogram up to date as of February 2024 - Colonoscopy last performed in October 2023 - Vitamin D supplementation recommended due to deficiency Social History - The patient has a private counselor and attends sessions every Monday. - Reports difficulty with weight management and expresses a need for assistance in losing weight. Review of Systems - Cardiovascular: Reports palpitations and anxiety related to heart condition. Denies chest pain. - Musculoskeletal: Reports low back pain and bilateral hip pain. - Genitourinary: Reports mixed urinary incontinence. Physical Exam Results - Labs: Normal blood count, normal renal function, LDL 137 mg/dL, vitamin D 28 ng/mL Plan Patient was informed and verbally consented to the use of an ambient scribe for clinic note documentation during this visit. 1. Hypercholesterolemia The patient is on a cholesterol management plan with a goal of reducing LDL to less than 130 mg/dL and triglycerides to less than 150 mg/dL. She is advised to continue with diet and exercise modifications to achieve these targets. 2. Paroxysmal Supraventricular Tachycardia (Psvt) The patient is currently taking metoprolol 12.5 mg twice a day to manage PSVT and associated anxiety symptoms. She is also using Ativan to counteract anxiety induced by metoprolol. 3. Mixed Urinary Incontinence The patient reports persistent mixed urinary incontinence, but no specific management plan was discussed during the visit. 4. Cholelithiasis The patient has a history of cholelithiasis, with no current symptoms reported during the visit. 5. Tubular Adenoma The patient has a history of tubular adenoma, with the last colonoscopy performed in October 2023. 6. Lumbar Radiculopathy The patient was diagnosed with lumbar radiculopathy in September 2020, following complaints of low back pain and bilateral hip pain. She was referred to orthopedics, where physical therapy was recommended, and an MRI was ordered. 7. Vitamin D Deficiency The patient's blood work indicated a vitamin D level of 28 ng/mL, suggesting deficiency. Vitamin D supplementation is recommended to address this deficiency. Discussion Notes During the visit, we discussed the patient's cholesterol management plan, emphasizing the importance of diet and exercise to achieve LDL and triglyceride goals. We also reviewed her current medications, including metoprolol and Ativan, to manage her PSVT and associated anxiety. The need for vitamin D supplementation was highlighted due to her deficiency. Patient Instructions - Continue with diet and exercise to manage cholesterol levels. - Take metoprolol and Ativan as prescribed to manage PSVT and anxiety. - Begin vitamin D supplementation as recommended. Orders: Referrals Medical Weight Management Referral E66.3 - Overweight Medications: Refilled lorazepam 0.5 mg orally TID or 4x a day or( 2tabs Twice a day) as directed PRN; 120 tabs 0RF anxiety F41.9 - Anxiety disorder, unspecified
[2024-11-14 08:49] VITALS: BP 116/64; PULSE 68; TEMP 36.1; O2SAT 97; BMI 28.9
--- OUTSIDE RECORDS SUMMARY | 2024-11-14 09:49 | XMS_ITS | Patient Health Record ---
Author Organization [facility] Address [address] [place] [address] Care Team Providers Care Roll Changer Name Role Phone Po Andre MG Primary Care Provider Ta Srinivasan [phone] Allergies Allergen (clinical drug ingredient) Drug/Non Drug [...] Problem Status W/U Status Risk Notes Problem 2376721 Diverticulitis o f large intestine without perforation or abscess without bleeding (K57.32) Active confirmed Problem 980805074 Encounter for screening for malignant neoplasm of colon (Z12.11) Active confirmed Problem 97145017 Irritable bowel syndrome without diarrhea (K58.9) Active confirmed Problem Screening for malignant neoplasm of rectum ([id number]) Encounter for screening for malignant neoplasm of rectum (Z12.12) Active confirmed Plan Of Treatment Future Test Test Name Order Date COLONOSCOPY 04/02/2015 Insurance Providers Payer Name Payer Address Payer Phone Subscriber Number Group Number Insured Name Patient Relationship to Insured Coverage Start Date Coverage End Date [facility] [address] [place], [place] [id number] [phone] [id number] MAGO Lozada ANGEL Self - patient is the insured Medical (General) History Medical History History ICD Code Denies CO,DM,CVA,Lung disease,renal dise ase Diagnosed with diverticuliti s early 11/2014 at [facility] -treated with outpt antibiotics-Augmentin(didn't tolerate Cipro/Flagyl)--she describes an abdominal/pelvic CT and pelvic U/S--had a F/U CT on 01/09/15 which showed improvement and no active diverticulitis Cardiac arrhythmmias--on Met oprolol--Bigeminy/Trigeminy and SVT by her report--- she reports that she is going to have a cardiac ablation on 11/26/14 at [facility]--reports that it was not successful--wearing a loop recorder at the present time as of 01/14/15--she also sees Dr. Lacey and is now followed by Dr. Harrison at [facility] instead of the doctor in [place] Surgical History Surgery Date(Month/Year) cyst removal from ovary 1980 benign lymph node removed 1999
--- OUTSIDE RECORDS SUMMARY | 2024-11-14 09:49 | XMS_ITS | Encounter Summary ---
Author Organization [facility] Address [facility] [employer] [address] [address] Phone Care Team Providers Care Lock Operator Name Role Phone Andre Tipton MD Primary Care Provider [phone] Sandra Bills MD, MS Unavailable [phone] Inderjit Broderick MD Unavailable [phone] Encounter Details Date Type Department Care Team (Late st Contact Info) Description 01/06/[address] [facility] Electrophysiology Lab [address] [place] [address] Social History Tobacco Use Types Packs/Day Years [...] as of this encounter Plan of Treatment Upcoming Encounters Date Type Department Care Team (Latest Contact Info) Description 02/10/[address] [facility] Electrophysiology Lab [address] [place] [address] 02/10/2025 11:00 AM EST Hospital Encounter [facility] Electrophysiology Lab [address] [place] [address] Sandra Bills MD, MS 75 [facility] [address] [place] [address] [email or web address] 02/10/2025 11:00 AM EST - 02/10/2025 12:[address] [facility] Electrophysiology Lab [address] [place] [address] Sandra Bills MD, MS 75 [facility] [place] [address] [email or web address] Loop Recorder, Removal documented as of this encounter Visit Diagnoses Not on filedocumented in this encounter Care Teams Lock Operator Relationship Specialty Start Date End Date Po, Andre Stoner MD [address] [place] [address] [address] [place] [phone] PCP - General Internal Medicine 03/03/15 Sandra Bills MD, MS [address] [place] [address] [email or web address] Cardiology 06/20/23 Inderjit Broderick MD [address] [place] [address] [address] [place] [address] Cardiology 06/20/23 documented as of this encounter Additional Source Comments The information contained in this document represents components of the legal health record. It is not the complete legal health record.[facility]
--- OUTSIDE RECORDS SUMMARY | 2024-11-14 09:49 | XMS_ITS | Encounter Summary ---
Author Organization [facility] Address [facility] [employer] [facility] [address] [place] [address] Phone Care Team Providers Care Cotton Broker Name Role Phone Andre Tipton MD Primary Care Provider [phone] Sandra Bills MD, MS Unavailable [phone] Inderjit Broderick MD Unavailable [phone] Encounter Details Date Type Department Care Team (Late st Contact Info) Description 12/19/2016 Procedure Pass [facility] [address] [place] [address] Social History Tobacco Use Types Packs/Day Years [...] (Latest Contact Info) Description 02/10/2025 Procedure Pass [facility] Electrophysiology Lab [address] [place] [address] 02/10/2025 11:00 AM EST Hospital Encounter [facility] Electrophysiology Lab [address] [place] [address] Sandra Bills MD, MS 75 [facility] [address] [place] [address] [email or web address] 02/10/2025 11:00 AM EST - 02/10/2025 12:30 PM EST Surgery [facility] Electrophysiology Lab [address] [place] [address] Sandra Blils MD, MS 75 [facility] [place] [address] [email or web address] Loop Recorder, Removal documented as of this encounter Visit Diagnoses Not on filedocumented in this encounter Care Teams Cotton Broker Relationship Specialty Start Date End Date Po, Andre Stoner MD [address] [place] [address] [address] [place] [phone] PCP - General Internal Medicine 03/03/15 Sandra Bills MD, MS [address] [place] [address] [email or web address] Cardiology 06/20/23 Inderjit Broderick MD 300 [facility] 154 [place] [address] Cardiology 06/20/23 documented as of this encounter Additional Source Comments The information contained in this document represents components of the legal health record. It is not the complete legal health record.[facility]
--- OUTSIDE RECORDS SUMMARY | 2024-11-14 09:49 | XMS_ITS | Encounter Summary ---
Author Organization [employer] [facility] Address [address] [email or web address] [facility] [address] [place] [address] Phone Care Team Providers Care Closet Builder Name Role Phone Andre Tipton MD Primary Care Provider [phone] Sandra Bills MD, MS Unavailable [phone] Inderjit Broderick MD Unavailable [phone] Encounter Details Date Type Department Care Team (Late st Contact Info) Description 12/12/2023 Procedure Pass [facility] [address] [place] [address] Social History Tobacco Use Types Packs/Day Years Used Date Smoking Tobacco: Never Alcohol Use Standard Drinks/Week Comments No 0 (1 standard drink = 0.6 oz pur e alcohol) Education Answer Date Recorded Are you interested in more education? Not on martin e 07/05/2022 Are you concerned about learning? Not on file 07/05/2022 No 07/05/2022 No 07/05/2022 Digital Access Answer Date Recorded No 07/27/2022 No 07/27/2022 Reliable internet access at home? Not on file 07/27/2022 Device with a working camera? Not on file Comments No Sex and Gender Information Value Date Recorded Sex Assigned at Not on file Legal Sex Female 5:46 PM EST Gender Identity Not on file Sexual Orientation Not on file documented as of this encounter Plan of Treatment Upcoming Encounters Date Type Department Care Team (Latest Contact Info) Description 02/10/[address] [facility] Electrophysiology Lab [address] [place] [address] 02/10/2025 11:00 AM EST Hospital Encounter [facility] Electrophysiology Lab [address] [place] [address] Sandra Bills MD, MS [address] [address] [email or web address] 02/10/2025 11:00 AM EST - 02/10/2025 12:[address] [facility] Electrophysiology Lab [address] [place] [address] Sandra Bills MD, MS [address] [address] [email or web address] Loop Recorder, Removal documented as of this encounter Visit Diagnoses Not on filedocumented in this encounter Care Teams Closet Builder Relationship Specialty Start Date End Date Po, Andre Stoner MD [address] [place] [address] [place] [phone] PCP - General Internal Medicine 03/03/15 Sandra Bills MD, MS [address] [place] [address] [email or web address] Cardiology 06/20/23 Inderjit Broderick MD [address] [place] [address] Cardiology 06/20/23 documented as of this encounter Additional Source Comments The information contained in this document represents components of the legal health record. It is not the complete legal health record.[facility]
--- OUTSIDE RECORDS SUMMARY | 2024-11-14 09:49 | XMS_ITS | Clinical Summary ---
Author Organization [address] [place] [address] Address [address] [place] [address] Phone Care Team Providers Care Building Architectural Designer Name Role Phone Andre Tipton MD Primary Care Provider [phone] Encounters Date Type Department Care Team Description 10/23/2024 9:35 AM EDT Ancillary Procedure [facility] Cardiology [facility] [address] [facility] 154 [place] [phone] 09/13/2024 11:15 PM EDT Ancillary Procedure [facility] Cardiology [facility] 154 300 [facility] 154 [place] [address] from Last 3 Months Family History Medical [...] 02/06/2022 Social Influencers of Health Screening 02/06/2022 Depression Screening 03/06/2024 Hypertension/CHF/CAD Annual BMP Blood Test 10/19/2024 10/20/2023 COVID-19 Vaccine (2024-2 6 season) 2024 04/09/2021, 08/18/2020, 06/16/2020 Influenza Vaccine (#1) 2024 RSV Immunization Adult [...] this topic Medical Devices Implanted Type Area Specimen Collector Device Identifier Shelf Expiration Date Model / Serial / Lot [facility] [facility] Biomonitor Iiim [id number] Implanted:07/2022 (Quantity not on file) Cardiac Loop Recorder [employer] BIOMONITOR IIIM / [id number] / Bsci-Crm [id number] Implanted:10/06 (Quantity not on file) Cardiac Loop Recorder [place] Ref[employer] It CARD RHYTHM MGMT [id number] / [id number] / Procedures Procedure Name Priority Date/Time Associated Diagnosis Comments CARDIAC DEVICE CHECK- REMOTE- MURJ Routine 10/23/2024 9:34 AM EDT CARDIAC DEVICE CHECK- REMOTE- MURJ Routine 09/13/2024 11:13 PM EDT from Last 3 Months Results * Cardiac device check - Remote- MURJ (10/23/2024 9:34 AM EDT) Only the most recent of2 resultswithin the time period is included. Date Time Interrogation Session [id number] CV DEVICE CHECK Type Interrogation Session Remote Device Initiated CV DEVICE CHECK Implantable Pulse Generator Specimen Collector BSX CV DEVICE CHECK Implantable Pulse Generator Type ILR CV DEVICE CHECK Implantable Pulse Generator Model M312 CV DEVICE CHECK Implantable Pulse Generator Serial Number [id number] CV DEVICE CHECK Implantable Pulse Generator Implant Date [id number] CV DEVICE CHECK Battery Status Beginning of Service CV DEVICE CHECK Atrial Tachy Statistic AT/AF [place] Percent 0.00 CV DEVICE CHECK Date of Service 2024-10-23 CV DEVICE CHECK Anatomical Region Laterality Modality Device Interroga tion 09/21/2024 12:5 8 AM EDT Impressions 10/23/2024 9:30 AM EDT Premature Ventricular Contraction (PVC) * Stored EGMs are consistent with or suggestive of Premature Ventricular Contraction(s) * Total episodes: _ * Number of PVCs from counters: _ * Symptoms associated with PVCs: Y / N Narrative Procedure Note Jacqueline Torres PA - 10/23/2024 IMPRESSION: Premature Ventricular Contraction (PVC) * Stored EGMs are consistent with or suggestive of Premature VentricularContraction(s) * Total episodes: _ * Number of PVCs from counters: _ * Symptoms associated with PVCs: Y / N Jacqueline SPARKS CV IMPLANTABLE CARDIAC DEVICE [place] OCEDURES Final Result from Last 3 Months [place] [id number] [employer] - [place] MEDICARE ADVANTAGE Care Teams Building Architectural Designer Relationship Specialty Start Date End Date Andre Tipton MD [address] [place] [address] Dr Blood [address] [facility] [place] [address] PCP - General Internal Medicine 02/13/15
--- OUTSIDE RECORDS SUMMARY | 2024-11-14 09:49 | XMS_ITS | Encounter Summary ---
Author Organization [facility] Address [facility] [employer] [facility] [address] [place] [address] Phone Care Team Providers Care Workers Compensation Examiner Name Role Phone Andre Tipton MD Primary Care Provider [phone] Sandra Bills MD, MS Unavailable [phone] Inderjit Broderick MD Unavailable [phone] Encounter Details Date Type Department Care Team (Late st Contact Info) Description 06/14/2023 Procedure Pass [facility] EKG [address] [place] [address] Social History Tobacco Use Types Packs/Day Years [...] a working camera? Not on file Comments Unknown Sex and Gender Information Value Date Recorded Sex Assigned at Not on file Legal Sex Female 5:46 PM EST Gender Identity Not on file Sexual Orientation Not on file documented as of this encounter Plan of Treatment Upcoming Encounters Date Type Department Care Team (Latest Contact Info) Description 02/10/2025 Procedure Pass [facility] Electrophysiology Lab [address] [place] [address] 02/10/2025 11:00 AM EST Hospital Encounter [facility] Electrophysiology Lab [address] [place] [address] Sandra Bills MD, MS [address] [address] [email or web address] 02/10/2025 11:00 AM EST - 02/10/2025 12:30 PM EST Surgery [facility] Electrophysiology Lab [address] [place] [address] Snadra Bills MD, MS [address] [address] [email or web address] Loop Recorder, Removal documented as of this encounter Visit Diagnoses Not on filedocumented in this encounter Care Teams Workers Compensation Examiner Relationship Specialty Start Date End Date Po, Andre Stoner MD [address] [place] [address] [place] [phone] PCP - General Internal Medicine 03/03/15 Sandra Bills MD, MS [address] [place] [address] [email or web address] Cardiology 06/20/23 Inderjit Broderick MD 300 [facility] [address] [place] [address] Cardiology 06/20/23 documented as of this encounter Additional Source Comments The information contained in this document represents components of the legal health record. It is not the complete legal health record.[facility]
--- OUTSIDE RECORDS SUMMARY | 2024-11-14 09:49 | XMS_ITS | Encounter Summary ---
Author Organization [facility] Address [address] [facility] [address] [place] [address] Phone Care Team Providers Care Search Engine Optimization Consultant Name Role Phone Andre Tipton MD Primary Care Provider [phone] Sandra Bills MD, MS Unavailable [phone] Inderjit Broderick MD Unavailable [phone] Encounter Details Date Type Department Care Team (Late st Contact Info) Description 04/28/2023 Ancillary Orders [facility] 75 [place] [address] Andre Tipton MD [address] [place] [address] Cardiac abnormality (Primary Dx) Social History Tobacco Use Types Packs/Day Years [...] (Latest Contact Info) Description 02/10/2025 Procedure Pass [facility] Electrophysiology Lab [address] [place] [address] 02/10/2025 11:00 AM EST Hospital Encounter [facility] Electrophysiology Lab [address] [place] [address] Sandra Bills MD, MS [address] [address] [email or web address] 02/10/2025 11:00 AM EST - 02/10/2025 12:30 PM EST Surgery [facility] Electrophysiology Lab [address] [place] [address] Sandra Bills MD, MS [address] [address] [email or web address] Loop Recorder, Removal documented as of this encounter Visit Diagnoses Diagnosis Cardiac abnormality- Primary Unspecified congenital anomaly of heart Palpitations Ventricular premature beats Other premature beats NSVT (nonsustained ventricular tachycardia) Palpitations Ventricular premature beats Other premature beats NSVT (nonsustained ventricular tachycardia) documented in this encounter Care Teams Search Engine Optimization Consultant Relationship Specialty Start Date End Date Po, Andre Stoner MD [address] [place] [phone] PCP - General Internal Medicine 03/03/15 Sandra Bills MD, MS [address] [place] [address] [email or web address] Cardiology 06/20/23 Inderjit Broderick MD [address] [place] [address] Cardiology 06/20/23 documented as of this encounter Additional Source Comments The information contained in this document represents components of the legal health record. It is not the complete legal health record.[facility]
--- OUTSIDE RECORDS SUMMARY | 2024-11-14 09:49 | XMS_ITS | Encounter Summary ---
Author Organization [facility] Address [facility] [address] [place] [address] Phone Care Team Providers Care Hvac Tech Name Role Phone Andre Tipton MD Primary Care Provider [phone] Sandra Bills MD, MS Unavailable [phone] Inderjit Broderick MD Unavailable [phone] Encounter Details Date Type Department Care Team (Late st Contact Info) Description 06/07/2023 Procedure Pass [facility] Cardio EP Device Monitoring [address] [place] [address] Social History Tobacco Use Types Packs/Day Years [...] (Latest Contact Info) Description 02/10/2025 Procedure Pass [facility] Electrophysiology Lab [address] [place] [address] 02/10/2025 11:00 AM EST Hospital Encounter [facility] Electrophysiology Lab [address] [place] [address] Sandra Bills MD, MS [address] [address] [email or web address] 02/10/2025 11:00 AM EST - 02/10/2025 12:30 PM EST Surgery [facility] Electrophysiology Lab [address] [place] [address] Sandra Bills MD, MS [address] [address] [email or web address] Loop Recorder, Removal documented as of this encounter Visit Diagnoses Not on filedocumented in this encounter Care Teams Hvac Tech Relationship Specialty Start Date End Date Po, Andre Stoner MD [address] [place] [address] [place] [phone] PCP - General Internal Medicine 03/03/15 Sandra Bills MD, MS [address] [place] [address] [email or web address] Cardiology 06/20/23 Inderjit Broderick MD [address] [facility] [address] [place] [address] Cardiology 06/20/23 documented as of this encounter Additional Source Comments The information contained in this document represents components of the legal health record. It is not the complete legal health record.[facility]
--- OUTSIDE RECORDS SUMMARY | 2024-11-14 09:49 | XMS_ITS | Encounter Summary ---
Author Organization [facility] Address [facility] [employer] [facility] [address] [place] [address] Phone Care Team Providers Care Quality Worker Name Role Phone Andre Tipton MD Primary Care Provider [phone] Sandra Blils MD, MS Unavailable [phone] Inderjit Broderick MD Unavailable [phone] Encounter Details Date Type Department Care Team (Late st Contact Info) Description 09/08/2021 Procedure Pass [facility] [address] [facility], 5th Floor, [address] [place] [address] Social History Tobacco Use Types Packs/Day Years [...] (Latest Contact Info) Description 02/10/2025 Procedure Pass [facility] Electrophysiology Lab 75 [place] [address] 02/10/2025 11:00 AM EST Hospital Encounter [facility] Electrophysiology Lab [address] [place] [address] Sandra Bills MD, MS 75 [facility] [address] [place] [address] [email or web address] 02/10/2025 11:00 AM EST - 02/10/2025 12:30 PM EST Surgery [facility] Electrophysiology Lab [address] [place] [address] Sandra Bills MD, MS 75 [facility] [place] [address] [email or web address] Loop Recorder, Removal documented as of this encounter Visit Diagnoses Not on filedocumented in this encounter Care Teams Quality Worker Relationship Specialty Start Date End Date Po, Andre Stoner MD [address] [place] [address] [address] [place] [address] PCP - General Internal Medicine 03/03/15 Sandra Bills MD, MS [address] [place] [address] [email or web address] Cardiology 06/20/23 Inderjit Broderick MD 300 [facility] [address] [place] [address] Cardiology 06/20/23 documented as of this encounter Additional Source Comments The information contained in this document represents components of the legal health record. It is not the complete legal health record.[facility]
--- OUTSIDE RECORDS SUMMARY | 2024-11-14 09:49 | XMS_ITS | Patient Health Record ---
Author Organization [facility] Address [address] [place] [address] Care Team Providers Care Obstetrics Tech Name Role Phone CIERRA ROBERTS M.D. Primary Care Provider Lorena Crump Unavailable [phone] Allergies Allergen (clinical drug ingredient) Drug/Non Drug Allergy documented on EMR Reaction Allergy Type Onset Date Status sulfamethoxazole / trimethoprim BACTRIM Headache Drug Allergy Active ciprofloxacin Cipro Unknown Drug Allergy Act edwin metronidazole Flagyl Unknown Drug Allergy Act edwin Iodine Swelling Drug Allergy Active Reason For Referral No Information Medications Medication SIG (Take, Route, Frequency, Duration) Notes Start Date End Date Status Ativan 0.5 MG 1/2 Orally Once a day 1/2 NEEDED Active Metoprolol Succinate ER 25 MG 1/2 tablet Orally Twice a day 12.5MG TWICE A DAY Active Social History Tobacco Use: Social History Observation Description Date Details (start date - stop date) Never Smoker NA - NA Sexual History Question Answer Notes Had sex in the past 12 months (vaginal, oral, or anal)? Yes with Men only Prevention strategies discussed: Other AUDIT-C (Standard) Question Answer Notes Did you have a drink containing alcohol in the p ast year? No Points 0 Interpretation Negative Tobacco Control (Standard) Question Answer Notes Tobacco use: Nonsmoker Section Notes: Marital status: Children: 1 boy Lives with: spouse Nutrition: average diet Exercise: none Sexual activity: monogamous relationship. Contraception: menopause .CE: Smoking: Never a smoker .CE: Alcohol: none Text messaging while driving: no Sunscreen: yes Illicit drugs: no Seatbelt: yes Problems Problem Type SNOMED Code ICD Code Onset Dates Problem Status W/U Status Risk Notes Problem Postmenopausal atrophic vaginitis (20769469) Postmenopausal atrophic vaginitis (N95.2) Active confirmed Problem Urinary incontinence (640417675) Unspecified urinary incontinence (R32) Active confirmed Problem Atrophy of vulva (984011727) Atrophy of vulva (N90.5) Active confirmed Problem Panic disorder without agoraphobia (15136730) Panic disorder without agoraphobia (300.01) Active confirmed Major Problem Cardiac arrhythmia (293199009) Other specified cardiac dysrhythmias (427.89) Active confirmed Major Problem Postmenopausal atrophic vaginitis (27685578) Postmenopausal atrophic vaginitis (627.3) Active confirmed Diag Problem Gynecological examination normal (164865913542917) Routine gynecological examination (V72.31) Active confirmed Major Problem Screening for malignant neoplasm of colon (202291482) Special screening for malignant neoplasms, colon (V76.51) Active confirmed Major Vital Signs Temperature 97.9 degrees Fahrenheit 10/18/2024 Blood pressure diastolic 78 mm Hg 10/18/2024 Height 62.5 in 10/18/2024 Blood pressure systolic 108 mm Hg 10/18/2024 Weight 160 lbs 10/18/2024 BMI 28.79 kg/m2 10/18/2024 Encounters Encounter Location Date Provider Diagnosis [address] [place] [address] 10/18/2024 Lorena Jason Encounter for gynecological examination (general) (routine) without abnormal findings Z01.419 ; Encounter for screening mammogram for malignant neoplasm of breast Z12.31 ; Postmenopausal atrophic vaginitis N95.2 and Dense breasts, unspecified R92.30 Assessments Encounter Date Diagnosis (ICD Code) Assessment Notes Treatment Notes Treatment Clinical Notes Section Notes 10/18/2024 Encounter for gynecological examination (general) (routine) without abnormal findings (ICD-10 - Z01.419) NO PAP TEST, DUE IN 2026. 10/18/2024 Encounter for screening mammogram for malignant neoplasm of breast (ICD-10 - Z12.31) REGULAR MAMMOGRAMS AND SBE'S WERE RECOMMENDED. 10/18/2024 Postmenopausal atrophic vaginitis (ICD-10 - N95.2) DISCUSSED FINDINGS, DX AND TX OPTIONS. DISCUSSED BENEFITS AND RISKS OF INTRAVAGINAL ESTROGEN. PAT REFUSED TO RESTART ESTRADIOL TABS 10 MCG. SHE IS ASYMPTOMATIC. 10/18/2024 Dense breasts, unspecified (ICD-10 - R92.30) DISCUSSED DENSE BREASTS ON MAMMOGRAM AND ITS IMPLICATIONS. 3D MAMMOGRAMS WERE RECOMMENDED. Plan Of Treatment Pending Test Test Name Order Date MAMMOGRAM, SCREENING 09/14/2022 MAMMOGRAM, SCREENING 09/19/2023 MAMMOGRAM, SCREENING 10/18/2024 Urine Culture and Sensitivity 07/11/2014 Ultrasound : Pelvic 07/11/2014 Ultrasound : Retroperitoneal 07/11/2014 COMPLETE URINALYSIS 07/13/2020 THIN PREP,HPV,RICCI IF HPV+ (>29YR)(SCRN) 03/15/2017 URINE CULTURE 07/13/2020 MM Digital Mammo Screening 12/20/2018 MM Digital Mammo Screening 07/13/2020 MM Digital Mammo Screening 09/14/2022 MM Digital Mammo Screening 10/18/2024 MM Digital Mammo Screening 09/19/2023 Next Appt Details Provider Name:Lorena cardenas, 10/21/2025 09:40:00 AM, [address], [address], [place], [address], Insurance Providers Payer Name Payer Address Payer Phone Subscriber Number Group Number Insured Name Patient Relationship to Insured Coverage Start Date Coverage End Date [employer] MEDICARE PPO [address] [place] [address] [phone] [id number] MAGO Lozada ANGEL Self - patient is [...] Mammographic heterogeneous density, bila teral breasts R92.333 Dense breasts, unspecified R92.30 Disappearance and of family member Z63.4 Postmenopausal atrophic vaginitis N95.2 Surgical History Surgery Date(Month/Year) Bilateral Tubal Ligation Exploratory Laparoscopy for Wedges Ovary Left Breast Biopsy Right Axilla Lymph Node Excision Heart Ablation and Implanted Cherrie Record er 11/2014 Colonoscopy Colorectal Surgery Hospitalization History Reason Date(Month/Year) See Surgical Hx 1 Vaginal Delivery
--- OUTSIDE RECORDS SUMMARY | 2024-11-14 09:49 | XMS_ITS | Encounter Summary ---
Author Organization [facility] Address [address] [facility] [address] [place] [address] Phone Care Team Providers Care Surgical Services Coordinator Name Role Phone Andre Tipton MD Primary Care Provider [phone] Sandra Bills MD, MS Unavailable Inderjit Broderick MD Unavailable [phone] Reason for Referral * MRI/CAT Scan - Closed Specialty Diagnoses / Procedures Referred By Contac t Referred To Contact Radiology Diagnoses Atrial fibrillation, unspecified type Procedures MRI Cardiac Non-Stress System, Provider Not In, PhD [address] [address] Referral ID Status Reason Start Date Expiration Date Visits Re quested Visits Authorized [id number] Closed 12/19/2016 12/19/2017 1 1 Encounter Details Date Type Department Care Team (Latest Contact Info) Description 12/19/2016 Transcribe Orders [facility] [address] [place] [id number] Rica Palacios [address] [place] [address] [email or web address] Atrial fibrillation, unspecified type (Primary Dx) Social History Tobacco Use Types [...] (Latest Contact Info) Description 02/10/2025 Procedure Pass [facility] Electrophysiology Lab [address] [place] [address] 02/10/2025 11:00 AM EST Hospital Encounter [facility] Electrophysiology Lab [address] [place] [address] Sandra Bills MD, MS [address] [id number] [email or web address] 02/10/2025 11:00 AM EST - 02/10/2025 12:30 PM EST Surgery [facility] Electrophysiology Lab [address] [place] [address] Sandra Bills MD, MS [address] [address] [email or web address] Loop Recorder, Removal documented as of this encounter Results * MRI CARDIAC NON-STRESS WITH AND WITHOUT CONTRAST (12/27/2016 11:21 AM EDT) Anatomical Region Laterality Modality Heart Magnetic Resonan ce 12/27/2016 11:2 1 AM EDT Narrative 12/28/2016 10:52 AM EDT CARDIOVASCULAR MAGNETIC RESONANCE IMAGING REPORT BASIC PATIENT AND EXAM INFORMATION: Patient: Catherine Snider Sex: Female Height: 1.6 m : 1960 Weight: 62.51 kg Exam Date: Dec 27, 2016 Exam #: [id number] BSA: 1.65 m2 Referring MD: Jeannette Sanchez MD Reason for Referral: Palpitations, frequent PVCs, prior ablation SCANNER DETAILS AND TECHNIQUES PERFORMED: Scanner Sejal: 1.5T Scanner Vendor: Siemens Scan Quality: Cine MRI: Good; Perfusion: Good; LGE: Good Techniques Performed: Cardiac localization Steady-state free precession cine imaging in multiple imaging planes Gadolinium contrast enhanced first-pass myocardial perfusion imaging at rest Contrast-enhanced late gadolinium enhancement imaging in multiple planes The patient received intravenous Dotarem (gadoterate) total - 20.0ml The patient was given the following medication prior to or during the exam: IV Conscious Sedation IMPRESSIONS: 1. The left ventricular size is normal. The left ventricular ejection fraction is 64 % by Villavicencio's method. Global left ventricular function is normal. There are no regional wall motion abnormalities. The left ventricular mass is normal. 2. There is no resting first pass myocardial perfusion defect. There is no late gadolinium enhancement to suggest prior infarct, inflammation, or infiltration. 3. The right ventricular size is normal. Global right ventricular function is normal. There are no regional wall motion abnormalities of the right ventricular wall. There is no late gadolinium enhancement of the right ventricle. 4. Left atrial size is normal. Right atrial size is normal. QUANTITATIVE MEASUREMENTS: Non-indexed Indexed (m2) LVEDV (ml) 126.17 76.47 LVESV (ml) 45.24 27.42 LVSV (ml) 80.93 49.05 LVEF (%) 64.14 LVED Mass (g) 68.63 41.59 LVEDD (mm) 54.67 33.13 LVESD (mm) 35.42 21.47 Fractional Shortening (%) 35.21 (mm) 5.[address] (mm) 4.24 2.57 CO (l/min) 6.47 3.92 Left Atrium (mm) 31.0 19.0 Pulm Artery (mm) 24.0 Aortic Root (mm) 24.0 15.0 Non-indexed Indexed (m2) RVEDV (ml) 138.84 84.15 RVESV (ml) 61.3 37.15 RVSV (ml) 77.54 46.99 RVEF (%) 55.85 MISCELLANEOUS: The pulse sequences used were designed for imaging cardiovascular structures and are suboptimal for imaging other structures and organs. ELECTRONIC SIGNATURE: Cardiac MRI Fellow: Topher Phillips MD & Evie Cohen [facility] Cardiac MRI Attending: Terry Hamm MD I, Terry Hamm MD, the teaching physician, have reviewed the images and agreed with the report as written. Procedure Note Terry Hamm MD - 12/28/2016 CARDIOVASCULAR MAGNETIC RESONANCE IMAGING REPORT BASIC PATIENT AND EXAM INFORMATION: Patient: Catherine Snider Sex: Female Height: 1.6 m : 1960 Weight: 62.51 kg Exam Date: Dec 27, 2016 Exam #: [id number] BSA: 1.65 m2 Referring MD: Jeannette Sanchez MD Reason for Referral: Palpitations, frequent PVCs, prior ablation SCANNER DETAILS AND TECHNIQUES PERFORMED: Scanner Sejal: 1.5T Scanner Vendor: Siemens Scan Quality: Cine MRI: Good; Perfusion: Good; LGE: Good Techniques Performed: Cardiac localization Steady-state free precession cine imaging in multiple imaging planes Gadolinium contrast enhanced first-pass myocardial perfusion imaging at rest Contrast-enhanced late gadolinium enhancement imaging in multiple planes The patient received intravenous Dotarem (gadoterate) total - 20.0ml The patient was given the following medication prior to or during the exam: IV Conscious Sedation IMPRESSIONS: 1. The left ventricular size is normal. The left ventricular ejection fraction is 64 % by Villavicencio's method. Global left ventricular function is normal. There are no regional wall motion abnormalities. The left ventricular mass is normal. 2. There is no resting first pass myocardial perfusion defect. There is no late gadolinium enhancement to suggest prior infarct, inflammation, or infiltration. 3. The right ventricular size is normal. Global right ventricular function is normal. There are no regional wall motion abnormalities of the right ventricular wall. There is no late gadolinium enhancement of the right ventricle. 4. Left atrial size is normal. Right atrial size is normal. QUANTITATIVE MEASUREMENTS: Non-indexed Indexed (m2) LVEDV (ml) 126.17 76.47 LVESV (ml) 45.24 27.42 LVSV (ml) 80.93 49.05 LVEF (%) 64.14 LVED Mass (g) 68.63 41.59 LVEDD (mm) 54.67 33.13 LVESD (mm) 35.42 21.47 Fractional Shortening (%) 35.21 (mm) 5.[address] (mm) 4.24 2.57 CO (l/min) 6.47 3.92 Left Atrium (mm) 31.0 19.0 Pulm Artery (mm) 24.0 Aortic Root (mm) 24.0 15.0 Non-indexed Indexed (m2) RVEDV (ml) 138.84 84.15 RVESV (ml) 61.3 37.15 RVSV (ml) 77.54 46.99 RVEF (%) 55.85 MISCELLANEOUS: The pulse sequences used were designed for imaging cardiovascular structures and are suboptimal for imaging other structures and organs. ELECTRONIC SIGNATURE: Cardiac MRI Fellow: Topher Phillips MD & Evie Cohen [facility] Cardiac MRI Attending: Terry Hamm MD I, Terry Hamm MD, the teaching physician, have reviewed the images and agreed with the report as written. us Provider Not In System PhD IMG MR CARDIAC Final Result documented in this encounter Visit Diagnoses Diagnosis Atrial fibrillation, unspecified type- Primary Atrial fibrillation, unspecified type Palpitations Ventricular premature beats Other premature beats NSVT (nonsustained ventricular tachycardia) Palpitations Ventricular premature beats Other premature beats NSVT (nonsustained ventricular tachycardia) documented in this encounter Care Teams Surgical Services Coordinator Relationship Specialty Start Date End Date Po, Andre Stoner MD [address] [place] [address] [address] [place] [address] PCP - General Internal Medicine 03/03/15 Sandra Bills MD, MS [address] [place] [address] [place] [address] [email or web address] Cardiology 06/20/23 Inderjit Broderick MD [address] [place] [address] [address] [place] [address] Cardiology 06/20/23 documented as of this encounter Additional Source Comments The information contained in this document represents components of the legal health record. It is not the complete legal health record.[facility]
--- OUTSIDE RECORDS SUMMARY | 2024-11-14 09:49 | XMS_ITS | Clinical Summary ---
Author Organization [facility] Address [facility] [place] [address] [address] Phone Care Team Providers Care Bus Cleaner Name Role Phone Andre Tipton MD Primary Care Provider [phone] Sandra Bills MD, MS Unavailable [phone] Inderjit Broderick MD Unavailable [phone] Allergies Active Allergy Reactions Criticality Noted Date Comments Atenolol Rash Low 12/06/2023 Ciprofloxacin Other (See Comments),Nausea Only,Nausea and/or Vomiting 12/23/2015 Iodinated Contrast Media Swelling High 12/20/2021 Iodine Anaphylaxis,Swelling High 03/23/2015 Other Reaction(s): Lip & Eye swelling Metronidazole Other (See Comments),Nausea and/or Vomiting 07/28/2017 Sulfa (Sulfonamide Antibiotics) Other (See Comments) 03/14/2011 BACTRIM CAUSES A HEADACHE; Medications LORAZEPAM (ATIVAN ORAL) 0.5 mg 2 (two) times a day. 4 Active metoprolol tartrate (LOPRESSOR) 25 MG tablet Take 0.5 tablets (12.5 mg total) by mouth 2 (two) times a day. 90 tablet 3 5 Active metoprolol tartrate (LOPRESSOR) 25 MG tablet TAKE 1/2 TABLET BY MOUTH EVERY 12 HOURS. 5 10/30/19 25 Discontinu ed(Reorder ) Active Problems Problem Noted Date Diagnosed Date Palpitations 06/20/2023 Status post placement of implantable loop record er 06/20/2023 Ventricular premature beats 12/10/2013 Overview (04/26/2014): Ventricular premature beats Atrial tachycardia 12/10/2013 Overview (04/26/2014): Atrial tachycardia Anxiety 12/10/2013 Overview (04/26/2014): Anxiety Gastroesophageal reflux disease Hypertensive disorder NSVT (nonsustained ventricular tachycardia) PVC's (premature ventricular contractions) Anxiety disorder Encounters Date Type Department Care Team Description 10/29/2024 Orders Only [facility] [address] [place] [address] Daily Florez NP 10/23/2024 Orders Only [facility] [address] [place] [address] Daily Florez NP Palpitations (Primary Dx); Ventricular premature beats; NSVT (nonsustained ventricular tachycardia) 10/21/2024 12:30 PM EDT Telemedicine [facility] [address] [place] [address] Sandra Bills MD, MS NSVT (nonsustained ventricular tachycardia) (Primary Dx); Nonsustained supraventricular tachycardia 09/20/2024 10:16 AM EDT - 09/20/2024 11:59 PM EDT Hospital Encounter [facility] Cardiac Stress Lab [address] [place] [address] Sandra Bills MD, MS Discharge Disposition: Home or Self Care from Last 3 Months Social History Tobacco Use Types Packs/Day Years Used Date Smoking Tobacco: Never Tobacco Cessation:Counseling Given: Not Answered Alcohol Use Standard Drinks/Week Comments No 0 [...] on file Sexual Orientation Not on file Last Filed Vital Signs Vital Sign Reading Time Taken Comments Blood Pressure 122/68 05/24/2024 2:45 PM EDT Pulse 57 06/14/2023 11:06 AM EDT Temperature 36.2 C (97.1 F) 05/24/2024 2:15 PM EDT Respiratory Rate 17 12/27/2016 11:20 AM EDT Oxygen Saturation 99% 05/24/2024 2:45 PM EDT Inhaled Oxygen Concentration - - Weight 67.6 kg (149 lb) 05/17/2024 12:39 PM EDT Height 160 cm (5' 3 ) 05/17/2024 12:39 PM EDT Body Mass Index 26.39 05/17/2024 12:39 PM EDT Plan of Treatment Upcoming Encounters Date Type Department Care Team (Latest Contact Info) Description 02/10/2025 Procedure Pass [facility] Electrophysiology Lab [address] [place] [address] 02/10/2025 11:00 AM EST Hospital Encounter [facility] Electrophysiology Lab [address] [place] [address] Sandra Bills MD, MS [address] [address] [email or web address] 02/10/2025 11:00 AM EST - 02/10/2025 12:30 PM EST Surgery [facility] Electrophysiology Lab [address] [place] [address] Sandra Bills MD, MS [address] [address] [email or web address] Loop Recorder, Removal Health Maintenance Due Date Last Done Comments Adult Td,Tdap Booster 1962 LIPID PANEL 1962 HEPATITIS C SCREENING 1980 HIV ONE-TIME SCREENING (18-6 5 YEARS) 1980 PAP SMEAR 06/07/1983 SCREENING FOR DIABETES 1997 MAMMOGRAM 2002 COLOGUARD 06/07/2007 COLONOSCOPY 06/07/2007 COLORECTAL CANCER SCREENING 06/07/2007 FIT TEST 06/07/2007 FOBT 06/07/2007 SIGMOIDOSCOPY 06/07/2007 VIRTUAL COLONOSCOPY 06/07/2007 PNEUMOCOCCAL VACCINES (50+ years) (1 of 1 - PCV) 2012 ZOSTER VACCINES (1 of 2) 2012 DEPRESSION SCREENING 12/05/2022 12/05/2021 BLOOD PRESSURE 12/14/2023 06/14/2023 INFLUENZA VACCINE (#1) 2024 COVID-19 VACCINE (4 - 2024-2 6 season) 2024 04/09/2021, 08/18/2020, 06/16/2020 RSV VACCINE (1 - 1-dose 75+ series) 2037 SMOKING STATUS SCREENING (On ce After 26 Yrs) Completed 05/17/2024 HEPATITIS A VACCINES Aged Out No long er eligible based on patient's age to complete this topic HIB VACCINES Aged Out No longer eligi ble based on patient's age to complete this topic MENINGOCOCCAL VACCINES (ACWY) Aged Out No longer eligible based on patient's age to complete this topic MENINGOCOCCAL VACCINES (B) Aged Out N o longer eligible based on patient's age to complete this topic Medical Devices Implanted Type Area Scrubber System Attendant Device Identifier Shelf Expiration Date Model / Serial / Lot Implantable Monitor- 3 Implanted:07/08 (Quantity not on file) Implantable Monitor [employer] / [id number] / Description:Loop monitor Procedures Procedure Name Priority Date/Time Associated Diagnosis Comments STRESS TEST EXERCISE Routine 09/20/2024 11:46 AM EDT NSVT (nonsustained ventricular tachycardia) PVC's (premature ventricular contractions) from Last 3 Months Results * STRESS TEST EXERCISE (09/20/2024 11:46 AM EDT) Anatomical Region Laterality Modality Heart BHECH 09/20/2024 11:0 0 AM EDT Narrative 09/20/2024 5:[address] Bills, Your patient Catherine Snider, a 64 year old female with no known CAD was referred to us for an exercise treadmill test to evaluate for NSVT, PVCs. Her cardiac risk factors include hypertension. The patient's resting ECG showed PVC's. She was on the following medications at the time of testing: Metoprolol. Exercise Stress Protocol: Ms. Snider exercised for 6:00 minutes of a Savage protocol. The heart rate increased from 88 bpm at rest to a peak heart rate of 126 bpm (80% age predicted maximal heart rate), and the blood pressure increased from 152/90 mm Hg at rest to 192/82 mm Hg at peak exercise (RPP: 12880). Exercise was terminated due to fatigue. The symptomatic response to exercise was non-ischemic. The blood pressure response was hypertensive. The ECG response to exercise indicated no significant ST-T changes. During exercise, frequent PVC's, frequent PAC's, four 6 beat runs of non-sustained VT were observed. Ms. Snider's functional capacity was 7 METS, which is average for her age and gender. Her heart rate recovery was 9 bpm (normal HRR > 18 bpm). Her Winters treadmill score was 6 which places her at a low prognostic risk (lower than 1% mortality per year). Intensity Heart Blood RPE Speed (Grade Rate Pressure (Scale (MPH) or Alamo) (bmp) (mm Hg) of 10) BASELINE Supine 88 152/90 Standing 100 170/90 STRESS Stage 1 1.7 10 113 186/84 Stage 2 2.5 12 126 192/82 RECOVERY 1 Minute 117 220/80 3 Minute 101 182/84 5 Minute 87 170/82 8 Minutes 90 162/84 In summary, the test results were: 1. Functional Capacity: 7 METS 2. Peak Heart Rate: 126 bpm (80% age-predicted maximal heart rate). 3. Symptomatic Response: Non-ischemic. 4. Peak Blood Pressure: 192/82 mm Hg. 5. Blood Pressure Response: Hypertensive. 6. ECG Response: Negative test for myocardial ischemia based on absence of ECG changes. 7. Stress-induced Arrhythmia: frequent PVC's, frequent PAC's, 6 beat run of non-sustained VT and couplets. Final impression: 1. Negative test for myocardial ischemia based on absence of ECG changes and symptoms. 2. Four short episodes of non-sustained VT. Stress ECG tracings available from [facility]'s [facility] Web Applications. These findings were communicated by Dr. Rodrigo Freitas to Dr. Sandra Bills at on . The teaching physician, Dr. Rodrigo Freitas, has supervised the procedure and performed the interpretation and reporting of the resulting data. Thank you for referring this patient to us. Sincerely yours, Rodrigo Freitas M.D., Attending Physician Procedure Note Rodrigo Parsons MD - 09/20/[address] Bills, Your patient Catherine Snider, a 64 year old female with no known CAD wasreferred to us for an exercise treadmill test to evaluate for NSVT, PVCs.Her cardiac risk factors include hypertension. The patient's resting ECG showed PVC's. She was on the followingmedications at the time of testing: Metoprolol. Exercise Stress Protocol: Ms. Snider exercised for 6:00 minutes of a Savage protocol. The heartrate increased from 88 bpm at rest to a peak heart rate of 126 bpm (80%age predicted maximal heart rate), and the blood pressure increased glkt722/90 mm Hg at rest to 192/82 mm Hg at peak exercise (RPP: 02191). Exercise was terminated due to fatigue. The symptomatic response toexercise was non-ischemic. The blood pressure response was hypertensive.The ECG response to exercise indicated no significant ST-T changes.During exercise, frequent PVC's, frequent PAC's, four 6 beat runs of non-sustained VT were observed. Ms. Snider's functional capacity was 7 METS, which is average for herage and gender. Her heart rate recovery was 9 bpm (normal HRR > 18 bpm).Her Winters treadmill score was 6 which places her at a low prognostic risk(lower than 1% mortality per year). Intensity Heart Blood RPE Speed (Grade Rate Pressure (Scale (MPH) or Alamo) (bmp) (mm Hg) of 10) BASELINE Supine 88 152/90 Standing 100 170/90 STRESS Stage 1 1.7 10 113 186/84 Stage 2 2.5 12 126 192/82 RECOVERY 1 Minute 117 220/80 3 Minute 101 182/84 5 Minute 87 170/82 8 Minutes 90 162/84 In summary, the test results were: 1. Functional Capacity: 7 METS 2. Peak Heart Rate: 126 bpm (80% age-predicted maximal heart rate). 3. Symptomatic Response: Non-ischemic. 4. Peak Blood Pressure: 192/82 mm Hg. 5. Blood Pressure Response: Hypertensive. 6. ECG Response: Negative test for myocardial ischemia based on absenceof ECG changes. 7. Stress-induced Arrhythmia: frequent PVC's, frequent PAC's, 6 beat runof non-sustained VT and couplets. Final impression: 1. Negative test for myocardial ischemia based on absence of ECG changesand symptoms. 2. Four short episodes of non-sustained VT. Stress ECG tracings available from [facility]'s [facility] Web Applications. These findings were communicated by Dr. Rodrigo Freitas to Dr. Monroe at on . The teaching physician, Dr. Rodrigo Freitas, has supervised the procedureand performed the interpretation and reporting of the resulting data. Thank you for referring this patient to us. Sincerely yours, Rodrigo Freitas M.D., Attending Physician Sandra Bills MD, MS CV STRESS ORDERABLES Final Result from Last 3 Months Insurance [place] P[place] BLUE REPLACEMENT MEDICARE PPO BLUE REPLACEMENT MEDICARE PPO BLUE REPLACEMENT MEDICARE PPO BLUE REPLACEMENT MEDICARE PPO BLUE REPLACEMENT MEDICARE PPO BLUE REPLACEMENT MEDICARE PPO BLUE REPLACEMENT MEDICARE PPO BLUE REPLACEMENT MEDICARE PPO BLUE REPLACEMENT Care Teams Bus Cleaner Relationship Specialty Start Date End Date Andre Tipton MD [address] [place] [address] PCP - General Internal Medicine 03/03/15 Sandra Bills MD, MS [address] [place], [place] [address] [place] [address] [email or web address] Cardiology 06/20/23 Inderjit Broderick MD [address] [place] [address] Cardiology 06/20/23 Additional Source Comments The information contained in this document represents components of the legal health record. It is not the complete legal health record.[facility]
--- OUTSIDE RECORDS SUMMARY | 2024-11-14 09:49 | XMS_ITS | Encounter Summary ---
Author Organization [employer] [facility] Address [address] [place] [address] Phone Care Team Providers Care Cold Mill Supervisor Name Role Phone Andre Tipton MD Primary Care Provider [phone] Sandra Bills MD, MS Unavailable [phone] Inderjit Broderick MD Unavailable [phone] Encounter Details Date Type Department Care Team (Late st Contact Info) Description 12/16/2016 Ancillary Orders [facility] [address] [address] System, Provider Not In, PhD [address] [address] Ventricular premature contractions; Palpitations Social History Tobacco Use Types Packs/Day Years [...] (Latest Contact Info) Description 02/10/2025 Procedure Pass [facility] Electrophysiology Lab [address] [place] [address] 02/10/2025 11:00 AM EST Hospital Encounter [facility] Electrophysiology Lab [address] [place], [place] [id number] Sandra Bills MD, MS 75 [facility] [address] [place] [address] [email or web address] 02/10/2025 11:00 AM EST - 02/10/2025 12:30 PM EST Surgery [facility] Electrophysiology Lab [address] [place] [address] Sandra Bills MD, MS [address] [address] [email or web address] Loop Recorder, Removal documented as of this encounter Visit Diagnoses Diagnosis Ventricular premature contractions Other premature beats Palpitations Palpitations Ventricular premature beats Other premature beats NSVT (nonsustained ventricular tachycardia) Palpitations Ventricular premature beats Other premature beats NSVT (nonsustained ventricular tachycardia) documented in this encounter Care Teams Cold Mill Supervisor Relationship Specialty Start Date End Date Po, Andre Stoner MD [address] [place] [phone] PCP - General Internal Medicine 03/03/15 Sandra Bills MD, MS [address] [place] [address] [email or web address] Cardiology 06/20/23 Inderjit Broderick MD [address] [place] [address] [address] [place] [address] Cardiology 06/20/23 documented as of this encounter Additional Source Comments The information contained in this document represents components of the legal health record. It is not the complete legal health record.[facility]
--- OUTSIDE RECORDS SUMMARY | 2024-11-14 09:50 | XMS_ITS | Encounter Summary ---
Author Organization [facility] Address Critical access hospital [facility] [place] [address] [place] [address] Phone Care Team Providers Care Defect Cutter Name Role Phone Andre Tipton MD Primary Care Provider [phone] Sandra Bills MD, MS Unavailable [phone] Inderjit Broderick MD Unavailable [phone] Encounter Details Date Type Department Care Team (Late st Contact Info) Description 03/19/2019 Procedure Pass [facility] [address] [place] [address] Social History Tobacco Use Types Packs/Day Years [...] (Latest Contact Info) Description 02/10/2025 Procedure Pass [facility] Electrophysiology Lab [address] [place] [address] 02/10/2025 11:00 AM EST Hospital Encounter [facility] Electrophysiology Lab [address] [place] [address] Sandra Bills MD, MS 75 [facility] [address] [place] [address] [email or web address] 02/10/2025 11:00 AM EST - 02/10/2025 12:30 PM EST Surgery [facility] Electrophysiology Lab [address] [place] [address] Sandra Bills MD, MS 75 [facility] [place] [address] [email or web address] Loop Recorder, Removal documented as of this encounter Visit Diagnoses Not on filedocumented in this encounter Care Teams Defect Cutter Relationship Specialty Start Date End Date Po, Andre Stoner MD [address] [place] [address] [address] [place] [phone] PCP - General Internal Medicine 03/03/15 Sandra Bills MD, MS [address] [place] [address] [email or web address] Cardiology 06/20/23 Inderjit Broderick MD [address] [facility] [address] [place] [address] Cardiology 06/20/23 documented as of this encounter Additional Source Comments The information contained in this document represents components of the legal health record. It is not the complete legal health record.[facility]
--- OUTSIDE RECORDS SUMMARY | 2024-11-14 09:50 | XMS_ITS | Encounter Summary ---
Author Organization [facility] Address [address] [facility] [address] [place] [phone] Phone Care Team Providers Care Chisel Trimmer Name Role Phone Andre Tipton MD Primary Care Provider [phone] Sandra Bills MD, MS Unavailable [phone] Inderjit Broderick MD Unavailable [phone] Reason for Referral * MRI/CAT Scan - Closed Specialty Diagnoses / Procedures Referred By Contac t Referred To Contact Radiology Diagnoses Paroxysmal ventricular tachycardia PVC (premature ventricular contraction) Procedures MRI Cardiac System, Provider Not In, PhD [address] [address] Referral ID Status Reason Start Date Expiration Date Visits Re quested Visits Authorized [id number] Closed 03/20/2019 05/18/2019 1 1 Encounter Details Date Type Department Care Team (Late st Contact Info) Description 03/19/2019 Ancillary Orders [facility] [address] [place] [id number] System, Provider Not In, PhD [address] [address] Paroxysmal ventricular tachycardia; PVC (premature ventricular contraction) Social History Tobacco Use Types Packs/Day Years [...] (Latest Contact Info) Description 02/10/2025 Procedure Pass [facility] Electrophysiology Lab [address] [place] [id number] 02/10/2025 11:00 AM EST Hospital Encounter [facility] Electrophysiology Lab [address] [place] [id number] Sandra Bills MD, MS [address] [phone] [email or web address] 02/10/2025 11:00 AM EST - 02/10/2025 12:30 PM EST Surgery [facility] Electrophysiology Lab [address] [place] [address] Sandra Bills MD, MS [address] [phone] [email or web address] Recorder, Removal documented as of this encounter Results * MRI CARDIAC (MYOCARDITIS) WITH AND WITHOUT CONTRAST (04/09/2019 10:34 AM EST) Anatomical Region Laterality Modality Heart Magnetic Resonan ce 04/09/2019 12:1 6 PM EST Narrative 04/09/2019 5:36 PM EST CARDIOVASCULAR MAGNETIC RESONANCE IMAGING REPORT BASIC PATIENT AND EXAM INFORMATION: Patient: Catherine Snider Sex: Female Height: 1.6 m : 1960 Weight: 63.5 kg Exam Date: Apr 09, 2019 Exam #: [id number] BSA: 1.66 m2 Referring MD: Rian Correa MD Reason for Referral: PVC SCANNER DETAILS AND TECHNIQUES PERFORMED: Scanner Sejal: 1.5T Scanner Vendor: [employer] Scan Quality: Cine MRI: Good; Perfusion: Good; LGE: Good Techniques Performed: Cardiac localization Steady-state free precession cine imaging in multiple imaging planes Gadolinium contrast enhanced first-pass myocardial perfusion imaging at rest Contrast-enhanced late gadolinium enhancement imaging in multiple planes The patient received intravenous Gadavist/Gadovist (gadobutrol) total - 9.6ml The patient was given the following medication prior to or during the exam: IV Conscious Sedation 200 mg IMPRESSIONS: 1. The left ventricular size is normal. The left ventricular ejection fraction is 57 % by Villavicencio's method. Global left ventricular function is normal. There are no regional wall motion abnormalities of the left ventricular wall. The left ventricular mass is normal. 2. There is no resting first pass myocardial perfusion defect. There is no late gadolinium enhancement to suggest prior infarct, inflammation, or infiltration. 3. The right ventricular size is normal. Global right ventricular function is normal. There are no regional wall motion abnormalities of the right ventricular wall. No imaging criteria for ARVC met. 4. Left atrial size is normal. Right atrial size is mildly enlarged. 5. There is mild tricuspid regurgitation. 6. Implantable loop recorder with associated off resonance artifact noted at the anterior chest wall. PERICARDIUM AND PLEURA: Pericardium Thickness: Normal Pericardium Findings: Prominent Epicardial Fat QUANTITATIVE MEASUREMENTS: Non-indexed Indexed (m2) LVEDV (ml) 110.15 66.28 LVESV (ml) 47.85 28.79 LVSV (ml) 62.3 37.48 LVEF (%) 56.56 LVED Mass (g) 67.81 40.8 LVEDD (mm) 47.09 28.33 LVESD (mm) 33.59 20.21 Fractional Shortening (%) 28.67 (mm) 8.[address] (mm) 6.43 3.87 CO (l/min) 3.74 2.25 Left Atrium (mm) 32.9 20.0 Pulm Artery (mm) 24.5 Aortic Root (mm) 25.0 15.0 Non-indexed Indexed (m2) RVEDV (ml) 96.13 57.84 RVESV (ml) 40.42 24.32 RVSV (ml) 55.71 33.52 RVEF (%) 57.95 HEMODYNAMIC RESPONSE: Pre-scan Supine At SAX Cine Heart Rate: 60 Blood Pressure: 150/80 MISCELLANEOUS: The pulse sequences used were designed for imaging cardiovascular structures and are suboptimal for imaging other structures and organs. ELECTRONIC SIGNATURE: Cardiac MRI Fellow: Onur Sherman MD Cardiac MRI Attending: Khang Owens MD ATTESTATION: Buddy Berman, as teaching physician have reviewed the images, if any, for this patient's exam, and if necessary, have edited the report originally created by Onur Sherman. Procedure Note Khang Owens MD - 04/09/2019 CARDIOVASCULAR MAGNETIC RESONANCE IMAGING REPORT BASIC PATIENT AND EXAM INFORMATION: Patient: Catherine Snider Sex: Female Height: 1.6 m : 1960 Weight: 63.5 kg Exam Date: Apr 09, 2019 Exam #: [id number] BSA: 1.66 m2 Referring MD: Rian Correa MD Reason for Referral: PVC SCANNER DETAILS AND TECHNIQUES PERFORMED: Scanner Sejal: 1.5T Scanner Vendor: [employer] Scan Quality: Cine MRI: Good; Perfusion: Good;LGE: Good Techniques Performed: Cardiac localization Steady-state free precession cine imaging in multiple imaging planes Gadolinium contrast enhanced first-pass myocardial perfusion imaging atrest Contrast-enhanced late gadolinium enhancement imaging in multiple planes The patient received intravenous Gadavist/Gadovist (gadobutrol) total -9.6ml The patient was given the following medication prior to or during theexam: IV Conscious Sedation 200 mg IMPRESSIONS: 1. The left ventricular size is normal. The left ventricular ejectionfraction is 57 % by Villavicencio's method. Global left ventricular function is normal.There are no regional wall motion abnormalities of the left ventricular wall.The left ventricular mass is normal. 2. There is no resting first pass myocardial perfusion defect. There is nolate gadolinium enhancement to suggest prior infarct, inflammation, orinfiltration. 3. The right ventricular size is normal. Global right ventricular functionis normal. There are no regional wall motion abnormalities of the rightventricular wall. No imaging criteria for ARVC met. 4. Left atrial size is normal. Right atrial size is mildly enlarged. 5. There is mild tricuspid regurgitation. 6. Implantable loop recorder with associated off resonance artifact notedat the anterior chest wall. PERICARDIUM AND PLEURA: Pericardium Thickness: Normal Pericardium Findings: Prominent Epicardial Fat QUANTITATIVE MEASUREMENTS: Non-indexed Indexed (m2) LVEDV (ml) 110.15 66.28 LVESV (ml) 47.85 28.79 LVSV (ml) 62.3 37.48 LVEF (%) 56.56 LVED Mass (g) 67.81 40.8 LVEDD (mm) 47.09 28.33 LVESD (mm) 33.59 20.21 Fractional Shortening (%) 28.67 (mm) 8.[address] (mm) 6.43 3.87 CO (l/min) 3.74 2.25 Left Atrium (mm) 32.9 20.0 Pulm Artery (mm) 24.5 Aortic Root (mm) 25.0 15.0 Non-indexed Indexed (m2) RVEDV (ml) 96.13 57.84 RVESV (ml) 40.42 24.32 RVSV (ml) 55.71 33.52 RVEF (%) 57.95 HEMODYNAMIC RESPONSE: Pre-scan Supine At SAX Cine Heart Rate: 60 Blood Pressure: 150/80 MISCELLANEOUS: The pulse sequences used were designed for imaging cardiovascularstructures and are suboptimal for imaging other structures and organs. ELECTRONIC SIGNATURE: Cardiac MRI Fellow: Onur Sherman MD Cardiac MRI Attending: Khang Owens MD ATTESTATION: Buddy Berman, as teaching physician have reviewed theimages, if any, for this patient's exam, and if necessary, have edited thereport originally created by Onur Sherman. us Provider Not In System PhD IMG MR CARDIAC Final Result documented in this encounter Visit Diagnoses Diagnosis Paroxysmal ventricular tachycardia PVC (premature ventricular contraction) Other premature beats Paroxysmal ventricular tachycardia PVC (premature ventricular contraction) Other premature beats Palpitations Ventricular premature beats Other premature beats NSVT (nonsustained ventricular tachycardia) Palpitations Ventricular premature beats Other premature beats NSVT (nonsustained ventricular tachycardia) documented in this encounter Care Teams Chisel Trimmer Relationship Specialty Start Date End Date Po, Andre Stoner MD [address] [place] [address] Drive [address] [place] [phone] PCP - General Internal Medicine 03/03/15 Sandra Bills MD, MS [address] [place] [phone] [email or web address] Cardiology 06/20/23 Inderjit Broderick MD [address] [address] Cardiology 06/20/23 documented as of this encounter Additional Source Comments The information contained in this document represents components of the legal health record. It is not the complete legal health record.[facility]
--- OUTSIDE RECORDS SUMMARY | 2024-11-14 09:50 | XMS_ITS | Encounter Summary ---
Author Organization [facility] Address [facility] [address] [place] [address] Phone Care Team Providers Care Med Specialist Name Role Phone Andre Tipton MD Primary Care Provider [phone] Sandra Bills MD, MS Unavailable [phone] Inderjit Broderick MD Unavailable [phone] Encounter Details Date Type Department Care Team (Late st Contact Info) Description 03/18/2019 Ancillary Orders [facility] Nuclear Medicine [address] [place] [address] System, Provider Not In, PhD Partners [address] [address] Preop examination; Paroxysmal ventricular tachycardia; PVC (premature ventricular contraction); Palpitations Social History Tobacco Use Types Packs/Day [...] (Latest Contact Info) Description 02/10/2025 Procedure Pass [facility] Electrophysiology Lab [address] [place], [place] [id number] 02/10/2025 11:00 AM EST Hospital Encounter [facility] Electrophysiology Lab [address] [place], [place] [phone] Sandra Bills MD, MS [address] [phone] [email or web address] 02/10/2025 11:00 AM EST - 02/10/2025 12:30 PM EST Surgery [facility] Electrophysiology Lab [address] [place] [address] Sandra Bills MD, MS [address] [phone] [email or web address] Recorder, Removal documented as of this encounter Visit Diagnoses Diagnosis Preop examination Unspecified pre-operative examination Paroxysmal ventricular tachycardia PVC (premature ventricular contraction) Other premature beats Palpitations Palpitations Ventricular premature beats Other premature beats NSVT (nonsustained ventricular tachycardia) Palpitations Ventricular premature beats Other premature beats NSVT (nonsustained ventricular tachycardia) documented in this encounter Care Teams Med Specialist Relationship Specialty Start Date End Date Po, Andre Stoner MD [address] [place] [address] [address] [place] [address] PCP - General Internal Medicine 03/03/15 Sandra Bills MD, MS [address] [place] [phone] [email or web address] Cardiology 06/20/23 Inderjit Broderick MD [address] [place] [address] [address] [place] [address] Cardiology 06/20/23 documented as of this encounter Additional Source Comments The information contained in this document represents components of the legal health record. It is not the complete legal health record.[facility]
== END 2024-11-14 09:21 | disposition home or self-care (01) ==
LOC: HO.HMCH 08:46
PROVIDERS: PCP Internal Medicine; Visit Provider Internal Medicine
DX: I47.10 Supraventricular tachycardia, unspecified (principal); E78.00 Pure hypercholesterolemia, unspecified; E66.3 Overweight; M54.16 Radiculopathy, lumbar region; F41.1 Generalized anxiety disorder

== ENCOUNTER 2024-11-14 08:45 | Outpatient (REF) | payer MEDICARE, SELFPAY ==
[2024-11-14 09:39] LABS: MANUAL DIFF FLAG NO
[2024-11-14 11:05] LABS: Hematocrit 44.2 % (37.0-47.0); Hemoglobin 14.8 g/dl (12.0-16.0); Imm Gran Abs Auto 0.03 X10*3/uL (0.00-0.03); Imm Gran Pct Auto 0.5 % (0.0-0.4); Lymphocytes Absolute Auto 1.5 X10*3/uL (1.2-4.9); Mean Corpuscular HGB Conc 33.5 g/dl (31.0-35.0); Mean Corpuscular Hemoglobin 31.2 pg (27.0-33.0); Mean Corpuscular Volume 93.1 fL (80.0-98.0); NRBC Abs Auto 0.000 X10*3/uL (0.0-0.012); NRBC Pct Auto 0.0 /100WBC (0.0-0.2); Platelet Count 278 X10*3/uL (160-400); Red Blood Count 4.75 X10*6/uL (4.20-5.50); White Blood Count 5.5 X10*3/uL (4.8-10.8)
[2024-11-14 11:43] LABS: Alanine Aminotransferase 24 U/L (0-31); Albumin Level 4.6 g/dL (3.5-5.0); Alkaline Phosphatase 96 U/L (39-117); Anion Gap 14 (12-20); Aspartate Amino Transferase 24 U/L (5-31); Blood Urea Nitrogen 21 mg/dL (9-16); Calcium 9.4 mg/dL (8.4-10.2); Carbon Dioxide 27 mmol/L (22-29); Chloride 107 mmol/L (96-108); Cholesterol 240 mg/dL (<200); Estimated Glomerular Filt Rate > 60; HDL Cholesterol 66 mg/dL (>40); Magnesium 2.1 mg/dL (1.6-2.6); Potassium 4.6 mmol/L (3.3-5.1); Sodium 143 mmol/L (135-145); Total Protein 7.4 g/dL (6.5-8.0); Triglycerides 83 mg/dL (<150)
[2024-11-14 12:03] LABS: Free T4 (Free Thyroxine) 0.84 ng/dL (0.71-1.85); Thyroid Stimulating Hormone 2.18 uIU/mL (0.32-4.0)
[2024-11-14 12:12] LABS: Folate 6.8 ng/mL (> or = 4.0); Vitamin B12 376 pg/mL (200-900)
== END 2024-11-14 08:46 | disposition home or self-care (01) ==
LOC: HO.LAB 08:45
PROVIDERS: PCP Internal Medicine; Visit Provider Internal Medicine
DX: E78.00 Pure hypercholesterolemia, unspecified (principal); I47.19 Other supraventricular tachycardia; E66.3 Overweight; M54.16 Radiculopathy, lumbar region; F41.1 Generalized anxiety disorder; Z79.899 Other long term (current) drug therapy
CPT/HCPCS: 36415; 80053; 80061; 82306; 82607; 82746; 83735; 84439; 84443; 85025; 96127; 99212

== ENCOUNTER 2025-01-22 09:00 | Outpatient (AMB) | payer MEDICARE, SELFPAY ==
--- OUTSIDE RECORDS SUMMARY | 2024-09-24 04:40 | XMS_ITS ---
Author Organization [facility] Address [address] [facility] [address] [place] [address] Care Team Providers Care Pharmacy Clerk Name Role Phone CIERRA ROBERTS M.D. Primary Care Provider Lorena Crump Unavailable [phone] REASON FOR VISIT HR MEDICARE PE Encounters Encounter Location Date Provider Diagnosis [facility] [address] [place] [address] [address] [place] [address] 09/24/2024 Lorena Jason Plan Of Treatment Next Appt Details Provider Name:Lorenayonathan codybibiana, 10/21/2025 09:40:00 AM, [address] [place] [address], [address], [place], [address], Progress Notes * ANGEL HERRERADOB: [birth year] (64 yo F)Acc No.[id number]:09/24/2024 PROGRESS NOTES Patient: Janeth ANGEL LOPEZ Appointment Provider: Allyson Jason M.D. :1960 A ge:64 Y S ex:Female Date:09/24/2024 Address:[address] [place], [place] [id number] Pcp:CIERRA ROBERTS M.D. Subjective: * Chief Complaints: * 1 . HR MEDICARE PE. * Medical History: Objective: * Vitals: Assessment: Plan: * Treatment: * Images: Billing Information: * Visit Code: * Procedure Codes: * Electronic signature of Lynn Jason MD on 01/22/2025 at 04:51 PM EST Sign off status: Pending * Appointment Provider: Allyson Jason M.D. Date: 0 09/24/2024 Generated for Jake john/Bhaskar/Taisha on: 1 03/24/2024 04:51 PM EST
[2025-01-22 09:05] VITALS: BP 130/76; PULSE 78; O2SAT 98; BMI 29.0
--- NOTE | 2025-01-22 09:05 | A.OFFPC_ITS ---
Vital Signs 01/22/25 09:05 Height 5 ft 3 in Weight 164 lb BMI 29.0 BP 130/76 Blood Pressure Location Lt brachial Position Sitting Pulse 78 Pulse Source Pulse Oximeter Pulse Oximetry (%) 98 Oxygen Delivery Method Room Air Intake Visit Reasons: Annual Exam Allergies Iodinated Contrast Media (IV CONTRAST) Allergy (Intermediate, Verified 01/22/25 09:05) PERIORBITAL SWELLING ciprofloxacin (From CIPRO) Allergy (Unknown, Verified 01/22/25 09:05) Nausea iodine Allergy (Unknown, Verified 01/22/25 09:05) from the [facility]SCAn had sweling periorbital metronidazole (Flagyl) Allergy (Unknown, Verified 01/22/25 09:05) headaches Sulfa (Sulfonamide Antibiotics) Allergy (Unknown, Verified 01/22/25 09:05) headache, severe migraine sulfamethoxazole (From BACTRIM) Allergy (Unknown, Verified 01/22/25 09:05) HEADACHE trimethoprim (From BACTRIM) Allergy (Unknown, Verified 01/22/25 09:05) HEADACHE Medication List - Last Reconciled 01/22/25 by Andre Tipton MD lorazepam 0.5 mg orally TID or 4x a day or( 2tabs Twice a day) as directed PRN; metoprolol tartrate 12.5 mg PO BID Tobacco use date assessed: 11/14/24 Dental Screening Dental Screen Date: 11/14/24 HPI HPI Comments History of Present Illness Details History of Present Illness The patient is a 64-year-old overweight female presenting for a physical exam. Her medical history includes generalized anxiety disorder, hypercholesterolemia, hyperventilation syndrome, mixed urinary incontinence, cholelithiasis, tubular adenoma of the colon, and hip and knee osteoarthritis. She has a history of paroxysmal supraventricular tachycardia since 2014, complicated by highly symptomatic PVCs, which prompted an ablation that year. A cardiology consultation in [place] in October of this year involved a workup that included a normal stress echo, negative genetic testing, a non-diagnostic cardiac PET scan for inflammation, and a cardiac MRI scheduled for 2024 that showed no pathologic scar. Despite the workup, she did have a burst of polymorphic SVT and was advised to get an EP study. Her machine cell tuber suggested changing metoprolol to succinate 12.5 mg twice a day, but the patient could not tolerate it at night due to her heart going berserk, which she attributes to her heart rate lowering too much and allowing for more PVCs. She has independently stopped the succinate and is currently only taking metoprolol tartrate 12.5 mg twice a day without informing her machine cell tuber. A machine cell tuber in [place] suggested her arrhythmia may be atrial with aberrant conduction rather than nonsustained ventricular tachycardia. Regarding her weight, she desires to lose 20 pounds, but was denied entry to a weight management program and a application defense manager because she is not considered obese. She notes a recent change in her habits, where she now eats when she is nervous, which she feels contributes to her elevated cholesterol. Family history is significant for her father's at age 41 from a structural heart problem and a grandmother who at age 62 or 63. Her grandfather had a brain tumor. There is no other family history of cancer. Health Maintenance A discussion was held regarding immunizations. The patient was informed about the availability of the flu shot and the option for the two-shot series for shingles, which she has already completed. Social History - Alcohol Use: Denies alcohol use. - Tobacco Use: Denies ever smoking cigar ettes. - Nutrition: Reports a recent tendency t o eat when nervous, which she previously did not do. - Weight Management: Patient wishes to l ose 20 pounds, from her current weight of 164 lbs to her goal of 134 lbs. - She has been denied from a weight anu gement program and a application defense manager because she is not considered obese. Results - Labs (from November 14): Blood count is perfect, non-anemic. Electrolytes, kidney function, blood sugar, liver function tests, vitamin B12, vitamin D, folic acid, thyroid, and magnesium are all within normal limits. - Lipid Panel: LDL cholesterol is elevat ed at 158 mg/dL, an increase from a previous value of 137. - Cardiology workup (past): Normal stres s echo. Negative genetic testing. Negative cardiac PET for inflammation. Cardiac MRI scheduled for 2024 showed no pathologic scar. COUNT INCLUDES THE [facility] Medical History (Updated 11/14/24 @ 09:02 by Andre Tipton MD) Overweight Overactive adrenal gland Hyperventilation syndrome Vitamin D deficiency LLQ pain Abdominal pain Impacted cerumen of right ear Rectal bleed Blood pressure elevated without history of HTN Breast cancer screening by mammogram Hyperventilation syndrome Diverticular disease Mitral valve prolapse Vitamin D deficiency Hypercholesterolemia Polycystic ovaries Paroxysmal supraventricular tachycardia Surgical History History of colonoscopy History of polycystic ovaries S/P colon resection History of lymph node excision History of cardiac radiofrequency ablation Family History Father Myocardial infarction CVD (cardiovascular disease) Hypertension Mother CHF (congestive heart failure) Hypertension CAD (coronary artery disease) Maternal Grandfather Brain tumor Brother No problems noted. Sister No problems noted. Son No problems noted. Social History Housing: House Alcohol intake: never Patient Tobacco Use Status: Never used Tobacco Tobacco use type: Cigarette e-Cigarette/Vaping Use: Never Used Second Hand Smoke Exposure: No service: No Current occupational status: unemployed Cognitive needs: No Hearing needs: No Vision needs: Yes (reading glasses) Questionnaire Thrive Questionnaire Date Thrive assessed: 11/14/24 I am a: Patient What is your living situation today?: I have a steady place to live Within the past 12 months, did the food you bought not last and you didn't have the money to get more?: I choose not to answer this question Within the past 12 months, did you worry whether your food would run out before you got money to buy more?: I choose not to answer this question Do you have trouble paying for medicines?: No Do you have trouble getting transportation to medical appointments?: No Do you have trouble paying your heating and electricity bill?: No Do you have trouble taking care of your child, family member or friend?: No Do you have trouble with day-to-day activities such as bathing, preparing meals, shopping, managing finances, etc.?: No Are you currently unemployed and looking for a job?: No Are you interested in more education?: No Please select the resources that you would like help with: None Currently or been in a relationship where the following occur: I choose not to answer THRIVE Score: 0 CHANELL-7 AMB Questionnaire CHANELL-7 Date CHANELL - 7 assessed: 03/26/24 Source: Developed by Drs. Ta Redding, Arleen Mckeon, Santosh Rodriguez and colleagues, with an educational donna from [employer]. Review of Systems Narrative Review of Systems - Constitutional: Denies fevers. - Neurological: Denies syncope. - Eyes: Reports issues with close-up vision but denies problems with distance vision. - ENT: Denies problems with hearing. - Cardiovascular: Denies chest heaviness or waking up short of breath. - Gastrointestinal: Reports occasional heartburn and alternating constipation and diarrhea, depending on diet. Denies dysphagia, nausea, and vomiting. Const Denies poor appetite and Denies weakness Eyes Denies no additional complaints ENT Reports Normal hearing present, Denies dizziness, Denies nasal congestion, Denies tinnitus and Denies sore throat Card Denies chest pain, Denies syncope, Denies rapid heart rate and Denies dyspnea Resp Denies cough and Denies dyspnea GI Denies change in stool character, Reports constipation, Denies diarrhea, Denies nausea and Denies vomiting Denies urinary frequency, Denies difficulty voiding and Denies dysuria Neuro Reports Normal hearing present, Denies confusion, Denies dizziness, Denies syncope and Denies weakness Psych Denies confusion Physical exam (Primary Care) Vital Signs: Last Vital Signs Pulse 78 01/22/25 09:05 BP 130/76 01/22/25 09:05 Pulse Ox 98 01/22/25 09:05 Oxygen Delivery Method Room Air 01/22/25 09:05 BMI result Body Mass Index 29.0 Tobacco/Smoking Status: Tobacco use Status Tobacco use date assessed 11/14/24 01/22/25 09:06 Patient Tobacco Use Status Never used Tobacco 01/22/25 09:06 Tobacco use type Cigarette 01/22/25 09:06 e-Cigarette/Vaping Use Never Used 01/22/25 09:06 Thrive Assessment: Date of Thrive Assessment Date Thrive assessed 11/14/24 01/22/25 09:06 Currently or been in a relationship where the following occur: I choose not to answer Narrative Physical Exam General: Cooperative, healthy appearing, comfortable, no acute distress and well developed Orientation: Patient oriented x3 Limitations: No limitations Head: Normal to inspection Ears: Hearing grossly normal bilaterally, slight ear wax present Nose: Normal external nose present Face and sinus: Normal facial exam Eyes: Appearance normal, both eyes and all related structures Neck: Normal visual inspection and Yes full ROM Respiratory: Normal respiratory effort and able to speak in complete sentences. Clear to auscultation bilaterally Cardiovascular: Regular rate and rhythm. Normal S1 and S2 GI: Normal to inspection. Soft to palpation and nontender Skin: No rashes or lesions noted Neuro: Patient oriented x3 Extremities: Normal to inspection Const General: alert and awake; No confusion Orientation/consciousness: No confusion HENMT Head: Yes normocephalic Ears: external ears normal and TM's normal bilaterally Face and sinus: Yes normal facial exam Mouth: moist mucous membranes Throat: Yes tonsils normal Eyes Conjunctivae: conjunctivae normal Pupils: Equal, round and reactive pupils present and Pupil accommodation reflex normal Direct Ophthalmoscopy: normal light reflex Neck Neck: No lymphadenopathy Thyroid: Thyroid normal Chest Chest palpation & inspection: normal inspection of the chest Resp Effort & Inspection: normal respiratory effort and no audible wheezes Auscultation: clear to auscultation bilaterally, no crackles, no wheezes and lung sounds not diminished Cardio Rate: regular rate Rhythm: regular rhythm Peripheral pulses: radial pulses present and dorsalis pedis present GI Palpation (GI): no masses Auscultation: normal bowel sounds and normoactive bowel sounds Rectal Exam - Female: deferred Skin General skin exam: no rashes or lesions noted Rashes: no rashes Neuro General: deep tendon reflexes 2+ bilaterally and No confusion Cranial nerves: Yes Equal, round and reactive pupils present, Yes Midline tongue present, Yes Normal hearing present and Yes Ability to bilaterally elevate shoulders present Cognition (Neuro): normal cognition Gait exam (Neuro): Normal gait present Motor exam (neuro): 5/5 motor strength present throughout Deep tendon reflexes (DTR's): Right brachioradialis reflex intensity grade: 2+, Left brachioradialis reflex intensity grade: 2+, Right patellar reflex intensity grade: 2+ and Left patellar reflex intensity grade: 2+ Extrem General: No edema Coding Level of Care Code Est Pt Prev Care 40-64y(76021) Diagnoses Annual physical exam Z00.00 Overweight (BMI 25.0-29.9) E66.3 Paroxysmal supraventricular tachycardia I47.1 Generalized anxiety disorder F41.1 Mixed stress and urge urinary incontinence N39.46 Assessment & Plan Assessment & Plan (1) Annual physical exam: Code(s): Z00.00 - Encounter for general adult medical examination without abnormal findings Category: Medical Plan: Patient is advised to eat healthy, keep well hydrated, keep active and have adequate sleep. (2) Overweight (BMI 25.0-29.9): Code(s): E66.3 - Overweight Category: Medical Plan: Continue with diet and exercise (3) Paroxysmal supraventricular tachycardia: Comment: November 2014 Dr. Elkins [facility] cardiac MRI 2017 echo 60-65% mild MR January [address] Broderick and [place] Dr. Ramey April 2019 cardiac MRI ejection fraction 57% normal echocardiogram October 2021 ejection fraction 45-50% Code(s): I47.1 - Supraventricular tachycardia Category: Medical Plan: Patient has been seen by Cardiology in [facility] and has change metoprolol to succinate 12.5 mg twice a day with tartrate as needed (4) Generalized anxiety disorder: Comment: Panic attacks. counselling private- DR. Garcia. monday zoom call Code(s): F41.1 - Generalized anxiety disorder Category: Medical Plan: Continue with lorazepam as needed (5) Mixed stress and urge urinary incontinence: Comment: Timed voiding meaning every 1-2 hours even if you do not feel like urinating empty the bladder, avoid drinks with high sweet content like juices or caffeine that makes her urinate, 2 hours before you sleep hold liquids so that in the morning you do not get the bladder to be too full. Code(s): N39.46 - Mixed incontinence Category: Medical Plan: Timed voiding meaning every 1-2 hours even if you do not feel like urinating empty the bladder, avoid drinks with high sweet content like juices or caffeine that makes her urinate, 2 hours before you sleep hold liquids so that in the morning you do not get the bladder to be too full. Plan Plan Patient was informed and verbally consented to the use of an ambient scribe for clinic note documentation during this visit. 1. Paroxysmal Supraventricular Tachycardia The patient was seen by cardiology at [facility], where her metoprolol was changed to succinate 12.5 mg twice daily. She reported intolerance to the succinate formulation, causing increased palpitations, and has self-discontinued it. She has reverted to taking metoprolol tartrate 12.5 mg twice a day. She will inform her machine cell tuber of this change. The plan is to continue the current regimen with metoprolol tartrate and use tartrate 12.5 mg as needed for breakthrough symptoms, though she has not needed to do so recently. 2. Hypercholesterolemia The patient's LDL cholesterol has increased to 158 mg/dL. She attributes this to a new habit of eating when nervous. The plan is to continue with diet and exercise modifications to manage her cholesterol. 3. Overweight The patient expressed a desire to lose 20 pounds. She was denied access to a weight management program and a application defense manager because she is not categorized as obese. A referral will be attempted again to a application defense manager to assist with dietary guidance. 4. Generalized Anxiety Disorder The patient will continue lorazepam (Ativan) on an as-needed basis. She has been advised to request a refill through the patient portal when she needs it. Discussion Notes I reviewed the cardiology note from her consultation in October. We discussed the medication change from metoprolol tartrate to succinate, and she reported that she could not tolerate the succinate formulation at night as it seemed to worsen her palpitations. She has since stopped the succinate and returned to taking metoprolol tartrate 12.5 mg twice daily. I advised her to inform her machine cell tuber of this change. We also reviewed her recent lab work, noting that while most results were normal, her LDL cholesterol has risen to 158. She acknowledged this is likely due to stress-related eating. We discussed her weight and desire to lose 20 pounds. I explained that I will try to process a referral to a application defense manager for dietary counseling after she was previously denied due to not meeting the criteria for obesity. We briefly discussed vaccinations, including the flu shot and the shingles vaccine, which she has completed. I explained the process for refilling her lorazepam prescription through the patient portal when needed. Patient Instructions - Continue taking metoprolol tartrate 12.5 mg twice a day for your heart rhythm. - Make sure to inform your heart doctor (machine cell tuber) that you could not take the metoprolol succinate and have switched back to the tartrate version. - Continue with diet and exercise to help manage your weight and lower your cholesterol. - We will try to send a referral to a application defense manager for help with your diet. - Continue taking lorazepam (Ativan) only as needed for anxiety. - When you need a refill for your lorazepam, please request it through the patient portal. - Consider getting a flu shot this season to protect yourself from influenza. Medications: Refilled lorazepam 0.5 mg orally TID or 4x a day or( 2tabs Twice a day) as directed PRN; 120 tabs 1RF anxiety F41.9 - Anxiety disorder, unspecified
--- OUTSIDE RECORDS SUMMARY | 2025-01-22 16:50 | XMS_ITS | Encounter Summary ---
Author Organization [facility] Address Critical access hospital [place] [address] [place] [phone] Phone Care Team Providers Care Assembler Brazer Name Role Phone Andre Tipton MD Primary Care Provider [phone] Sandra Bills MD, MS Unavailable [phone] Inderjit Broderick MD Unavailable [phone] Encounter Details Date Type Department Care Team (Late st Contact Info) Description 12/19/2016 Procedure [facility] [address] [place] [id number] Social History Tobacco Use Types Packs/Day Years [...] Department Care Team (Latest Contact Info) Description 05/12/2025 Hospital Encounter [facility] Electrophysiology Lab [address] [place] [address] Sandra Bills MD, MS [address] [facility] [address] [place] [address] [email or web address] 05/12/2025 Procedure Pass [facility] Electrophysiology Lab [address] [place] [address] 05/12/2025 11:00 AM EDT - 05/12/2025 12:30 PM EDT Surgery [facility] Electrophysiology Lab [address] [place] [address] Sandra Bills MD, MS [address] [facility] [place] [address] [email or web address] Loop Recorder, Removal documented as of this encounter Visit Diagnoses Not on filedocumented in this encounter Care Teams Assembler Brazer Relationship Specialty Start Date End Date Po, Andre Stoner MD [address] [place] [address] [address] [place] [id number] PCP - General Internal Medicine 03/03/15 Sandra Bills MD, MS [address] [place] [id number] [email or web address] Cardiology 06/20/23 Inderjit Broderick MD [address] [place] [address] [address] [place] [address] Cardiology 06/20/23 documented as of this encounter Additional Source Comments The information contained in this document represents components of the legal health record. It is not the complete legal health record.[facility]
--- OUTSIDE RECORDS SUMMARY | 2025-01-22 16:50 | XMS_ITS | Patient Health Record ---
Author Organization [facility] Address [address] [place] [id number] Care Team Providers Care Manufacturing Operations Manager Name Role Phone Andre Tipton MD Primary Care Provider Ta Srinivasan [phone] Allergies Allergen (clinical drug ingredient) Drug/Non Drug Allergy documented on EMR Reaction Allergy Type Onset Date Status CT Scan Dye (uncoded) Unknown Allergy Active Iodine Unknown Drug Allergy Active Reason For Referral No Information Medications Medication SIG (Take, Route, Frequency, Duration) Notes Start Date End Date Status Colace 100 MG Capsule 1 capsule as neede d Orally Once a day Active Dicyclomine HCl 10 MG Capsule 1-2 capsules Orally Four times a day as needed for abdominal bloating/cramps/disco mfort 01/14/2015 Not-Taking/PRN Metoprolol Tartrate 25 MG Tablet TAKE 1/2 TABLET BY MOUTH TWICE A DAY Oral; Duration: 90 Active LORazepam 0.5 MG Tablet 1/2 tablet as ne eded Oral Twice a day Active Social History Social History Additional Details Category Social Info Options Details Miscellaneous: Marital status: Occupation: unemployed Section Notes: Nonsmoker; no alcohol Nonsmoker; no alcohol Nonsmoker; no alcohol Problems Problem Type SNOMED Code ICD Code Onset Dates Problem Status W/U Status Risk Notes Problem Diverticulitis of colon (155344512) Diverticulitis of large intestine without perforation or abscess without bleeding (K57.32) Active confirmed Problem Screening for malignant neoplasm of colon (438364180) Encounter for screening for malignant neoplasm of colon (Z12.11) Active confirmed Problem Irritable bowel syndrome (88862071) Irritable bowel syndrome without diarrhea (K58.9) Active confirmed Problem Screening for malignant neoplasm of rectum (054227499) Encounter for screening for malignant neoplasm of rectum (Z12.12) Active confirmed Plan Of Treatment Future Test Test Name Order Date COLONOSCOPY 04/02/2015 Insurance Providers Payer Name Payer Address Payer Phone Subscriber Number Group Number Insured Name Patient Relationship to Insured Coverage Start Date Coverage End Date [facility] [address] [place], [place] [id number] MAGO LozadaANGEL Self - patient is the insured Medical (General) History Medical History History ICD Code Denies GA,DM,CVA,Lung disease,renal dise ase Diagnosed with diverticuliti s early 11/2014 at [facility] -treated with outpt antibiotics-Augmentin(didn't tolerate Cipro/Flagyl)--she describes an abdominal/pelvic CT and pelvic U/S--had a F/U CT on 01/09/15 which showed improvement and no active diverticulitis Cardiac arrhythmmias--on Met oprolol--Bigeminy/Trigeminy and SVT by her report--- she reports that she is going to have a cardiac ablation on 11/26/[address] [facility]--reports that it was not successful--wearing a loop recorder at the present time as of 01/14/15--she also sees Dr. Lacey and is now followed by Dr. Harrison at [facility] instead of the doctor in [place] Surgical History Surgery Date(Month/Year) cyst removal from ovary 1980 benign lymph node removed 1999
--- OUTSIDE RECORDS SUMMARY | 2025-01-22 16:50 | XMS_ITS | Encounter Summary ---
Author Organization [employer] [facility] Address [address] [facility] [address] [place] [address] Phone Care Team Providers Care Emergency Manager Name Role Phone Andre Tipton MD Primary Care Provider [phone] Sandra Bills MD, MS Unavailable Inderjit Broderick MD Unavailable [phone] Reason for Referral * MRI/CAT Scan - Closed Specialty Diagnoses / Procedures Referred By Contac t Referred To Contact Radiology Diagnoses Atrial fibrillation, unspecified type Procedures MRI Cardiac Non-Stress System, Provider Not In, PhD [address] [address] Referral ID Status Reason Start Date Expiration Date Visits Re quested Visits Authorized [id number] Closed 12/19/2016 12/19/2017 1 1 Encounter Details Date Type Department Care Team (Latest Contact Info) Description 12/19/2016 Transcribe Orders [facility] [address] [place] [address] Rica Palacios [address] [place] [address] [email or web address] Atrial fibrillation, unspecified type (Primary Dx) Social [...] (Latest Contact Info) Description 05/12/2025 Hospital Encounter [facility] Electrophysiology Lab [address] [place] [address] Sandra Bills MD, MS [address] [address] [email or web address] 05/12/2025 Procedure Pass [facility] Electrophysiology Lab [address] [place] [address] 05/12/2025 11:00 AM EDT - 05/12/2025 12:30 PM EDT Surgery [facility] Electrophysiology Lab [address] [place] [address] Sandra Bills MD, MS [address] [address] [email or web address] Loop Recorder, Removal documented as of this [...] Exam Date: Dec 27, 2016 Exam #: [id number] BSA: 1.65 m2 Referring MD: Jeannette Sanchez [...] Fellow: Topher Phillips MD & Evie Cohen [facility] Cardiac MRI Attending: Terry Hamm MD I, Terry Hamm MD, the teaching physician, have reviewed the images and agreed with the report as written. Procedure Note Terry Hamm MD - 12/28/2016 CARDIOVASCULAR MAGNETIC RESONANCE IMAGING REPORT BASIC PATIENT AND EXAM INFORMATION: Patient: Catherine Snider Sex: Female Height: 1.6 m : 1960 Weight: 62.51 kg Exam Date: Dec 27, 2016 Exam #: [id number] BSA: 1.65 m2 Referring MD: Jeannette Sanchez [...] Fellow: Topher Phillips MD & Evie Cohen [facility] Cardiac MRI Attending: Terry Hamm MD [...] tachycardia) documented in this encounter Care Teams Emergency Manager Relationship Specialty Start Date End Date Po, Andre Stoner MD [address] [place] [address] 101 [place] [phone] PCP - General Internal Medicine 03/03/15 Sandra Bills MD, MS [address] [place] [address] [place] [address] [email or web address] Cardiology 06/20/23 Inderjit Broderick MD [address] [place] [address] [address] [place] [address] Cardiology 06/20/23 documented as of this encounter Additional Source Comments The information contained in this document represents components of the legal health record. It is not the complete legal health record.[facility]
--- OUTSIDE RECORDS SUMMARY | 2025-01-22 16:51 | XMS_ITS | Encounter Summary ---
Author Organization [employer] [facility] Address [address] [facility] [address] [place] [address] Phone Care Team Providers Care Mixed Animal Veterinarian Name Role Phone Andre Tipton MD Primary Care Provider [phone] Sandra Bills MD, MS Unavailable [phone] Inderjit Broderick MD Unavailable [phone] Encounter Details Date Type Department Care Team (Late st Contact Info) Description 12/12/2023 Procedure Pass [facility] 75 [place] [address] Social History Tobacco Use Types Packs/Day Years [...] (Latest Contact Info) Description 05/12/2025 Hospital Encounter [facility] Electrophysiology Lab 75 [place] [address] Sandra Bills MD, MS [address] [address] [email or web address] 05/12/2025 Procedure Pass [facility] Electrophysiology Lab 75 [place] [address] 05/12/2025 11:00 AM EDT - 05/12/2025 12:30 PM EDT Surgery [facility] Electrophysiology Lab [address] [place] [address] Sandra Bills MD, MS [address] [address] [email or web address] Loop Recorder, Removal documented as of this encounter Visit Diagnoses Not on filedocumented in this encounter Care Teams Mixed Animal Veterinarian Relationship Specialty Start Date End Date Po, Andre Stoner MD [address] [place] [address] [place] [phone] PCP - General Internal Medicine 03/03/15 Sandra Bills MD, MS [address] [place] [address] [email or web address] Cardiology 06/20/23 Inderjit Broderick MD [address] [place] [address] Cardiology 06/20/23 documented as of this encounter Additional Source Comments The information contained in this document represents components of the legal health record. It is not the complete legal health record.[facility]
--- OUTSIDE RECORDS SUMMARY | 2025-01-22 16:51 | XMS_ITS | Encounter Summary ---
Author Organization [employer] [facility] Address [address] [place] [address] Phone Care Team Providers Care Distribution Superintendent Name Role Phone Andre Tipton MD Primary Care Provider [phone] Sandra Bills MD, MS Unavailable [phone] Inderjit Broderick MD Unavailable [phone] Encounter Details Date Type Department Care Team (Late st Contact Info) Description 12/16/2016 Ancillary Orders [facility] [address] [address] System, Provider Not In, PhD Partners [address] [address] Ventricular premature contractions; Palpitations Social History Tobacco [...] (Latest Contact Info) Description 05/12/2025 Hospital Encounter [facility] Electrophysiology Lab 75 [place] [address] Sandra Bills MD, MS 75 [facility] [address] [place] [address] [email or web address] 05/12/2025 Procedure Pass [facility] Electrophysiology Lab 75 [place] [address] 05/12/2025 11:00 AM EDT - 05/12/2025 12:30 PM EDT Surgery [facility] Electrophysiology Lab 75 [place] [address] Sandra Bills MD, MS [address] [address] [email or web address] Loop Recorder, Removal documented as of this encounter Visit Diagnoses Diagnosis Ventricular premature contractions Other premature beats Palpitations Palpitations Ventricular premature beats Other premature beats NSVT (nonsustained ventricular tachycardia) Palpitations Ventricular premature beats Other premature beats NSVT (nonsustained ventricular tachycardia) documented in this encounter Care Teams Distribution Superintendent Relationship Specialty Start Date End Date Saeed, Andre Stoner MD [address] [place] [phone] PCP - General Internal Medicine 03/03/15 Sandra Bills MD, MS [address] [place] [address] [email or web address] Cardiology 06/20/23 Inderjit Broderick MD [address] [place] [address] 154 [place] [address] Cardiology 06/20/23 documented as of this encounter Additional Source Comments The information contained in this document represents components of the legal health record. It is not the complete legal health record.[facility]
--- OUTSIDE RECORDS SUMMARY | 2025-01-22 16:51 | XMS_ITS | Encounter Summary ---
Author Organization [facility] Address [facility] [employer] [address] [address] Phone Care Team Providers Care Insurance Coder Name Role Phone Andre Tipton MD Primary Care Provider [phone] Sandra Bills MD, MS Unavailable [phone] Inderjit Broderick MD Unavailable [phone] Encounter Details Date Type Department Care Team (Latest Contact Info) Description 06/07/2023 Transcribe Orders [facility] [address] [place] [address] [address] [place] [address] [email or web address] Implantable loop recorder present (Primary Dx) Social History Tobacco Use Types [...] (Latest Contact Info) Description 05/12/2025 Hospital Encounter [facility] Electrophysiology Lab 75 [place] [address] Sandra Bills MD, MS [address] [address] [email or web address] 05/12/2025 Procedure Pass [facility] Electrophysiology Lab [address] [place] [address] 05/12/2025 11:00 AM EDT - 05/12/2025 12:30 PM EDT Surgery [facility] Electrophysiology Lab [address] [place] [address] Sandra Bills MD, MS [address] [address] [email or web address] Loop Recorder, Removal Pending Results Name Type Priority Associated Diagnoses Date /Time EP Device Check / Follow Up Cardiac Monitors Routine Implantable loop recorder present 06/14/2023 10:59 AM EDT Scheduled Orders Name Type Priority Associated Diagnoses Orde r Schedule EP Device Check / Follow Up Cardiac Monitors Routine Implantable loop recorder present Other for 60 Occurrences starting 06/07/2023 until 2025 documented as of this encounter Visit Diagnoses Diagnosis Implantable loop recorder present- Primary Palpitations Ventricular premature beats Other premature beats NSVT (nonsustained ventricular tachycardia) Palpitations Ventricular premature beats Other premature beats NSVT (nonsustained ventricular tachycardia) documented in this encounter Care Teams Insurance Coder Relationship Specialty Start Date End Date Po, Andre Stoner MD [address] [place] [phone] PCP - General Internal Medicine 03/03/15 Sandra Bills MD, MS [address] [place] [address] [place] [address] [email or web address] Cardiology 06/20/23 Inderjit Broderick MD [address] [place] [address] [address] [place] [address] Cardiology 06/20/23 documented as of this encounter Additional Source Comments The information contained in this document represents components of the legal health record. It is not the complete legal health record.[facility]
--- OUTSIDE RECORDS SUMMARY | 2025-01-22 16:51 | XMS_ITS | Clinical Summary ---
Author Organization [facility] Address [facility] [employer] [address] [address] Phone Care Team Providers Care Broom Builder Name Role Phone Andre Tipton MD Primary Care Provider [phone] Sandra Bills MD, MS Unavailable [phone] Inderjit Broderick MD Unavailable [phone] Allergies Active Allergy Reactions Criticality Noted Date [...] 0.5 mg 2 (two) times a day. 12/24/2013 Active metoprolol tartrate (LOPRESSOR) 25 MG tablet Take 0.5 tablets (12.5 mg total) by mouth 2 (two) times a day. 90 tablet 3 10/29/2024 Active Active Problems Problem Noted Date Diagnosed Date Palpitations 06/20/2023 Status post placement of implantable loop record er 06/20/2023 Ventricular premature beats 12/10/2013 Overview (04/26/2014): Ventricular premature beats Atrial tachycardia 12/10/2013 Overview (04/26/2014): Atrial tachycardia Anxiety 12/10/2013 Overview (04/26/2014): Anxiety Gastroesophageal reflux disease Hypertensive disorder NSVT (nonsustained ventricular tachycardia) PVC's (premature ventricular contractions) Anxiety disorder Encounters Date Type Department Care Team Description 01/22/2025 Telephone [facility] Cardiovascular Clinic [address] [phone] Sandra Bills MD, MS Negar.pt advice/sched coord 10/29/2024 Orders Only [facility] [address] [place] [address] Daily Florez NP 10/23/2024 Orders Only [facility] Cardiovascular [address] [address] Daily Florez NP Palpitations (Primary Dx); Ventricular premature beats; NSVT (nonsustained ventricular tachycardia) from Last 3 Months Social History Tobacco [...] (Latest Contact Info) Description 05/12/2025 Hospital Encounter [facility] Electrophysiology Lab 75 [place] [address] Sandra Bills MD, MS [address] [address] [email or web address] 05/12/2025 Procedure Pass [facility] Electrophysiology Lab [address] [place] [address] 05/12/2025 11:00 AM EDT - 05/12/2025 12:30 PM EDT Surgery [facility] Electrophysiology Lab [address] [place] [address] Sandra Bills MD, MS [address] [address] [email or web address] Loop Recorder, Removal Health Maintenance Due [...] 06/14/2023 INFLUENZA VACCINE (#1) 2024 COVID-19 VACCINE (2024-2 6 season) 2024 04/09/2021, 08/18/2020, 06/16/2020 RSV [...] this topic Medical Devices Implanted Type Area Physics Tutor Device Identifier Shelf Expiration Date Model / Serial / Lot Implantable Monitor- 3 Implanted:07/08 (Quantity not on file) Implantable Monitor [employer] / [id number] / Description:Loop monitor Insurance MEDICARE PPO BLUE REPLACEMENT MEDICARE PPO BLUE REPLACEMENT MEDICARE PPO BLUE REPLACEMENT MEDICARE PPO BLUE REPLACEMENT MEDICARE PPO BLUE REPLACEMENT MEDICARE PPO BLUE REPLACEMENT MEDICARE PPO BLUE REPLACEMENT MEDICARE PPO BLUE REPLAC[place] P[place] BLUE REPLACEMENT Care Teams Broom Builder Relationship Specialty Start Date End Date Po, Andre Stoner MD [address] [place] [address] 101 [place] [address] PCP - General Internal Medicine 03/03/15 Sandra Bills MD, MS [address] [place] [address] [address] [place] [address] [email or web address] Cardiology 06/20/23 Inderjit Broderick MD [address] [facility] [address] [place] [address] Cardiology 06/20/23 Additional Source Comments The information contained in this document represents components of the legal health record. It is not the complete legal health record.[facility]
--- OUTSIDE RECORDS SUMMARY | 2025-01-22 16:51 | XMS_ITS | Patient Health Record ---
Author Organization [facility] Address [address] [facility] [address] [place] [address] Care Team Providers Care Windows Phone Developer Name Role Phone CIERRA ROBERTS M.D. Primary Care Provider Lorena Crump Unavailable [phone] Allergies Allergen (clinical drug ingredient) Drug/Non Drug [...] Status Risk Notes Problem Postmenopausal atrophic vaginitis (82471959) Postmenopausal atrophic vaginitis (N95.2) Active confirmed Problem Urinary incontinence (174752686) Unspecified urinary incontinence (R32) Active confirmed Problem Atrophy of vulva (967284965) Atrophy of vulva (N90.5) Active confirmed Problem Panic disorder without agoraphobia (35759636) Panic disorder without agoraphobia (300.01) Active confirmed Major Problem Cardiac arrhythmia (013861900) Other specified cardiac dysrhythmias (427.89) Active confirmed Major Problem Postmenopausal atrophic vaginitis (75769393) Postmenopausal atrophic vaginitis (627.3) Active confirmed Diag Problem Gynecological examination normal (996979419417395) Routine gynecological examination (V72.31) Active confirmed Major Problem Screening for malignant neoplasm of colon (612944698) Special screening for malignant neoplasms, colon (V76.51) Active confirmed Major Vital Signs Temperature 97.9 degrees Fahrenheit 10/18/2024 Blood pressure diastolic 78 mm Hg 10/18/2024 Height 62.5 in 10/18/2024 Blood pressure systolic 108 mm Hg 10/18/2024 Weight 160 lbs 10/18/2024 BMI 28.79 kg/m2 10/18/2024 Encounters Encounter Location Date Provider Diagnosis [address] [place] [address] 10/18/2024 Lorena Jason Encounter for gynecological examination [...] Provider Name:Lorena cardenas, 10/21/2025 09:40:00 AM, [address] [facility], [address], [place], [address], Insurance Providers Payer Name Payer Address Payer Phone Subscriber Number Group Number Insured Name Patient Relationship to Insured Coverage Start Date Coverage End Date BC[employer] MEDICARE PPO [address] [place] [address] [phone] [id number] MAGO Lozada ANGEL Self - patient is [...]
--- OUTSIDE RECORDS SUMMARY | 2025-01-22 16:51 | XMS_ITS | Encounter Summary ---
Author Organization [facility] Address [facility] [employer] [address] [address] Phone Care Team Providers Care Water Plant Maintenance Mechanic Name Role Phone Andre Tipton MD Primary Care Provider [phone] Sandra Bills MD, MS Unavailable [phone] Inderjit Broderick MD Unavailable [phone] Encounter Details Date Type Department Care Team (Late st Contact Info) Description 01/06/2022 Procedure Pass [facility] Electrophysiology Lab [address] [place] [address] Social History Tobacco Use Types Packs/Day Years [...] (Latest Contact Info) Description 05/12/2025 Hospital Encounter [facility] Electrophysiology Lab [address] [place] [address] Sandra Bills MD, MS [address] [facility] [place] [address] [email or web address] 05/12/2025 Procedure Pass [facility] Electrophysiology Lab [address] [place] [address] 05/12/2025 11:00 AM EDT - 05/12/2025 12:30 PM EDT Surgery [facility] Electrophysiology Lab [address] [place] [address] Sandra Bills MD, MS [address] [facility] [place] [address] [email or web address] Loop Recorder, Removal documented as of this encounter Visit Diagnoses Not on filedocumented in this encounter Care Teams Water Plant Maintenance Mechanic Relationship Specialty Start Date End Date Po, Andre Stoner MD [address] [place] [address] [address] [place] [phone] PCP - General Internal Medicine 03/03/15 Sandra Bills MD, MS [address] [place] [address] [email or web address] Cardiology 06/20/23 Inderjit Broderick MD [address] [facility] [address] [place] [address] Cardiology 06/20/23 documented as of this encounter Additional Source Comments The information contained in this document represents components of the legal health record. It is not the complete legal health record.[facility]
--- OUTSIDE RECORDS SUMMARY | 2025-01-22 16:51 | XMS_ITS | Encounter Summary ---
Author Organization [facility] Address [address] [facility] [address] [place] [address] Phone Care Team Providers Care Postal Mail Carrier Name Role Phone Andre Tipton MD Primary Care Provider [phone] Sandra Bills MD, MS Unavailable [phone] Inderjit Broderick MD Unavailable Encounter Details Date Type Department Care Team (Late st Contact Info) Description 04/28/2023 Ancillary Orders [facility] 75 [place] [address] Andre Tipton MD [address] [place] [address] Cardiac abnormality (Primary Dx) Social [...] (Latest Contact Info) Description 05/12/2025 Hospital Encounter [facility] Electrophysiology Lab [address] [place] [address] Sandra Bills MD, MS [address] [address] [email or web address] 05/12/2025 Procedure Pass [facility] Electrophysiology Lab [address] [place] [address] 05/12/2025 11:00 AM EDT - 05/12/2025 12:30 PM EDT Surgery [facility] Electrophysiology Lab [address] [place] [address] Sandra Bills MD, MS [address] [address] [email or web address] Loop Recorder, Removal documented as of this encounter Visit Diagnoses Diagnosis Cardiac abnormality- Primary Unspecified congenital anomaly of heart Palpitations Ventricular premature beats Other premature beats NSVT (nonsustained ventricular tachycardia) Palpitations Ventricular premature beats Other premature beats NSVT (nonsustained ventricular tachycardia) documented in this encounter Care Teams Postal Mail Carrier Relationship Specialty Start Date End Date Po, Andre Stoner MD [address] [place] [address] [place] [phone] PCP - General Internal Medicine 03/03/15 Sandra Bills MD, MS [address] [place] [address] [email or web address] Cardiology 06/20/23 Inderjit Broderick MD [address] [place] [address] [address] [place] [address] (work) Cardiology 06/20/23 documented as of this encounter Additional Source Comments The information contained in this document represents components of the legal health record. It is not the complete legal health record.[facility]
--- OUTSIDE RECORDS SUMMARY | 2025-01-22 16:51 | XMS_ITS | Encounter Summary ---
Author Organization [facility] Address [facility] [address] [place] [address] Phone Care Team Providers Care Flour Inspector Name Role Phone Andre Tipton MD Primary Care Provider [phone] Sandra Bills MD, MS Unavailable [phone] Inderjit Broderick MD Unavailable Encounter Details Date Type Department Care Team (Late st Contact Info) Description 06/14/2023 Procedure Pass [facility] EKG [address] [place] [address] Social History Tobacco Use Types Packs/Day Years [...] (Latest Contact Info) Description 05/12/2025 Hospital Encounter [facility] Electrophysiology Lab [address] [place] [address] Sandra Bills MD, MS [address] [address] [email or web address] 05/12/2025 Procedure Pass [facility] Electrophysiology Lab [address] [place] [address] 05/12/2025 11:00 AM EDT - 05/12/2025 12:30 PM EDT Surgery [facility] Electrophysiology Lab [address] [place] [address] Sandra Bills MD, MS [address] [address] [email or web address] Loop Recorder, Removal documented as of this encounter Visit Diagnoses Not on filedocumented in this encounter Care Teams Flour Inspector Relationship Specialty Start Date End Date Po, Andre Stoner MD [address] [place] [address] [address] [place] [address] PCP - General Internal Medicine 03/03/15 Sandra Bills MD, MS [address] [place] [address] [email or web address] Cardiology 06/20/23 Inderjit Broderick MD [address] [facility] [address] [place] [address] Cardiology 06/20/23 documented as of this encounter Additional Source Comments The information contained in this document represents components of the legal health record. It is not the complete legal health record.[facility]
--- OUTSIDE RECORDS SUMMARY | 2025-01-22 16:51 | XMS_ITS | Clinical Summary ---
Author Organization [facility] Address [address] [place] [address] Phone Care Team Providers Care Investment Banking Manager Name Role Phone Andre Tipton MD Primary Care Provider [phone] Encounters Date Type Department Care Team Description 12/26/2024 11:30 AM EDT Ancillary Procedure [facility] Cardiology [facility] [address] [facility] [address] [place] [address] 12/03/2024 3:25 PM EDT Ancillary Procedure [facility] Card[facility] [address] [facility] [address] [place] [address] 10/23/2024 9:35 AM EDT Ancillary Procedure [facility] Cardiology [facility] [address] [facility] [address] [place] [address] from Last 3 Months Family History Medical [...] Last Done Comments Breast Cancer Screening 1962 Colorectal Cancer Screening: Colonoscopy 1962 DTaP,Tdap,and Td Vaccines (1 - Tdap) 1981 Cervical Cancer Screening: P ap Smear 06/07/1983 Pneumococcal Vaccine: 50+ Years (1 of 1 - PCV) 2012 Zoster Vaccines (1 of 2) 2012 Cholesterol Screening (Lipid Panel) 02/06/2022 HIV Screening 02/06/2022 Hepatitis C Screening 02/06/2022 Medicare Annual Wellness Visit 02/06/2022 Social Influencers of Health Screening 02/06/2022 Depression Screening 03/06/2024 Hypertension/CHF/CAD Annual BMP Blood Test 10/19/2024 10/20/2023 COVID-19 Vaccine (4 - 2024-2 6 season) 2024 04/09/2021, 08/18/2020, 06/16/2020 Influenza [...] this topic Medical Devices Implanted Type Area Biology Specimen Technician Device Identifier Shelf Expiration Date Model / Serial / Lot Biot-Manu Biomonitor Iiim [id number] Implanted:05/0 07/2022 (Quantity not on file) Cardiac Loop Recorder [employer] BIOMONITOR IIIM / [id number] / Bsci-Crm [id number] Implanted:10/06 (Quantity not on file) Cardiac Loop Recorder [employer] CARD RHYTHM MGMT M312 / [id number] / Procedures Procedure Name Priority Date/Time Associated Diagnosis Comments CARDIAC DEVICE CHECK- REMOTE- MURJ Routine 12/26/2024 11:25 AM EDT CARDIAC DEVICE CHECK- REMOTE- MURJ Routine 12/03/2024 3:24 PM EDT CARDIAC DEVICE CHECK- REMOTE- MURJ Routine 10/23/2024 9:34 AM EDT from Last 3 Months Results * Cardiac device check - Remote- MURJ (12/26/2024 11:25 AM EDT) Only the most recent of3 resultswithin the time period is included. Date Time Interrogation Session [id number] CV DEVICE CHECK Type Interrogation Session Remote Scheduled CV DEVICE CHECK Implantable Pulse Generator Biology Specimen Technician BSX CV DEVICE CHECK Implantable Pulse Generator Type ILR CV DEVICE CHECK Implantable Pulse Generator Model M312 CV DEVICE CHECK Implantable Pulse Generator Serial Number [id number] CV DEVICE CHECK Implantable Pulse Generator Implant Date [id number] CV DEVICE CHECK Battery Status Beginning of Service CV DEVICE CHECK Atrial Tachy Statistic AT/AF [place] Percent 0.00 CV DEVICE CHECK Date of Service 2025-01-03 CV DEVICE CHECK Anatomical Region Laterality Modality Device Interroga tion 12/16/2024 1:11 AM EDT Impressions 12/26/2024 7:47 AM EDT Normal Remote: No Events * This is a normal remote diagnostic device check * Alerts or events: None, events in device counters binned as demond are actually SR w/ under sensed PVCs/ventricular bigeminy. * Battery data was reviewed * Battery status: OLIVA, * Presenting rhythm reviewed * Heart Rate Histograms reviewed Narrative Procedure Note Inderjit Brodeirck MD - 12/26/2024 IMPRESSION: Normal Remote: No Events * This is a normal remote diagnostic device check * Alerts or events: None, events in device counters binned as demond areactually SR w/ under sensed PVCs/ventricular bigeminy. * Battery data was reviewed * Battery status: OLIVA, * Presenting rhythm reviewed * Heart Rate Histograms reviewed Inderjit Broderick MD CV IMPLANTABLE CARDIAC DEVICE PROCEDURES Final Result from Last 3 Months Insurance BLUE [place]OSS - [place] MEDICARE ADVANTAGE Care Teams Investment Banking Manager Relationship Specialty Start Date End Date Andre Tipton MD [address] [place] [address] Dr Blood [address] [facility] [place] [address] PCP - General Internal Medicine 02/13/15
--- OUTSIDE RECORDS SUMMARY | 2025-01-22 16:51 | XMS_ITS | Encounter Summary ---
Author Organization [facility] Address [facility] [employer] [facility] [address] [place] [address] Phone Care Team Providers Care Fire Boat Engineer Name Role Phone Andre Tipton MD Primary Care Provider Sandra Bills MD, [place] Unavailable [phone] Inderjit Broderick MD Unavailable [phone] Encounter Details Date Type Department Care Team (Late st Contact Info) Description 06/07/2023 Procedure Pass [facility] Cardio EP Device Monitoring [address] [place], [place] [id number] Social History Tobacco Use Types Packs/Day Years [...] (Latest Contact Info) Description 05/12/2025 Hospital Encounter [facility] Electrophysiology Lab [address] [place] [address] Sandra Bills MD, MS [address] [address] [email or web address] 05/12/2025 Procedure Pass [facility] Electrophysiology Lab [address] [place] [address] 05/12/2025 11:00 AM EDT - 05/12/2025 12:30 PM EDT Surgery [facility] Electrophysiology Lab [address] [place] [address] Sandra Bills MD, MS [address] [address] [email or web address] Loop Recorder, Removal documented as of this encounter Visit Diagnoses Not on filedocumented in this encounter Care Teams Fire Boat Engineer Relationship Specialty Start Date End Date Po, Andre Stoner MD [address] [place] [address] [address] [place] [address] PCP - General Internal Medicine 03/03/15 Sandra Bills MD, MS [address] [place] [address] [email or web address] Cardiology 06/20/23 Inderjit Broderick MD [address] [facility] [address] [place] [address] Cardiology 06/20/23 documented as of this encounter Additional Source Comments The information contained in this document represents components of the legal health record. It is not the complete legal health record.[facility]
--- OUTSIDE RECORDS SUMMARY | 2025-01-22 16:51 | XMS_ITS | Encounter Summary ---
Author Organization [facility] Address [facility] [address] [place] [address] Phone Care Team Providers Care Home Health Caregiver Name Role Phone Andre Tipton MD Primary Care Provider [phone] Sandra Bills MD, MS Unavailable [phone] Inderjit Broderick MD Unavailable [phone] Encounter Details Date Type Department Care Team (Late st Contact Info) Description 09/08/2021 Procedure Pass [facility] [address] [facility], 5th Floor, [address] [place] [address] Social History Tobacco Use Types Packs/Day Years [...] (Latest Contact Info) Description 05/12/2025 Hospital Encounter [facility] Electrophysiology Lab [address] [place] [address] Sandra Bills MD, MS 75 [facility] [address] [place] [address] [email or web address] 05/12/2025 Procedure Pass [facility] Electrophysiology Lab [address] [place] [address] 05/12/2025 11:00 AM EDT - 05/12/2025 12:30 PM EDT Surgery [facility] Electrophysiology Lab [address] [place] [address] Sandra Bills MD, MS 75 [facility] [place] [address] [email or web address] Loop Recorder, Removal documented as of this encounter Visit Diagnoses Not on filedocumented in this encounter Care Teams Home Health Caregiver Relationship Specialty Start Date End Date Po, Andre Stoner MD [address] [place] [address] [address] [place] [address] PCP - General Internal Medicine 03/03/15 Sandra Bills MD, MS [address] [place] [address] [email or web address] Cardiology 06/20/23 Inderjit Broderick MD [address] [place] [address] [address] [place] [address] Cardiology 06/20/23 documented as of this encounter Additional Source Comments The information contained in this document represents components of the legal health record. It is not the complete legal health record.[facility]
--- OUTSIDE RECORDS SUMMARY | 2025-01-22 16:52 | XMS_ITS | Encounter Summary ---
Author Organization [facility] Address [facility] [address] [address] Phone Care Team Providers Care 1St Pressman Name Role Phone Andre Tipton MD Primary Care Provider [phone] Sandra Bills MD, MS Unavailable [phone] Inderjit Broderick MD Unavailable [phone] Encounter Details Date Type Department Care Team (Late st Contact Info) Description 03/18/[address] [facility] Nuclear Medicine [address] [place] [address] System, Provider Not In, PhD Partners [address] [address] Preop examination; Paroxysmal ventricular tachycardia; PVC (premature [...] (Latest Contact Info) Description 05/12/[address] [facility] Electrophysiology Lab [address] [place] [address] Sandra Bills MD, MS 75 [facility] [address] [place], [place] [address] [email or web address] 05/12/[address] [facility] Electrophysiology Lab [address] [place] [address] 05/12/2025 11:00 AM EDT - 05/12/2025 12:[address] [facility] Electrophysiology Lab [address] [place] [address] Sandra Bills MD, MS [address] [address] [email or web address] Loop Recorder, Removal documented as of this encounter Visit Diagnoses Diagnosis Preop examination Unspecified pre-operative examination Paroxysmal ventricular tachycardia PVC (premature ventricular contraction) Other premature beats Palpitations Palpitations Ventricular premature beats Other premature beats NSVT (nonsustained ventricular tachycardia) Palpitations Ventricular premature beats Other premature beats NSVT (nonsustained ventricular tachycardia) documented in this encounter Care Teams 1St Pressman Relationship Specialty Start Date End Date Po, Andre Stoner MD [address] [place] [address] PCP - General Internal Medicine 03/03/15 Sandra Bills MD, MS [address] [place] [address] [email or web address] Cardiology 06/20/23 Inderjit Broderick MD [address] [place] [address] [address] [place] [address] Cardiology 06/20/23 documented as of this encounter Additional Source Comments The information contained in this document represents components of the legal health record. It is not the complete legal health record.[facility]
--- OUTSIDE RECORDS SUMMARY | 2025-01-22 16:52 | XMS_ITS | Encounter Summary ---
Author Organization [facility] Address [email or web address] [facility] [address] [place] [address] Phone Care Team Providers Care Wireline Supervisor Name Role Phone Andre Tipton MD Primary Care Provider [phone] Sandra Bills MD, MS Unavailable [phone] Inderjit Broderick MD Unavailable [phone] Reason for Visit * Reason Onset Date Comments Negar.pt advice/sched coord 01/22/2025 Encounter Details Date Type Department Care Team ([facility] st Contact Info) Description 01/22/2025 Telephone [facility] Cardiovascular Clinic [address] [place] [address] Sandra Bills MD, MS [facility] [place] [address] [email or web address] Negar.pt advice/sched coord Social History Tobacco Use Types Packs/Day Years [...] on file documented as of this encounter Progress Notes * Mercedes Prasad - 01/22/2025 1:24 PM EST Called patient who cited she is not home and cannot make appointment at this time, so I provided the office number for patient to call back to schedule appointment. * Lindsey Grigsby - 01/22/2025 10:50 AM EST Good morning, On 02/10/25 pt has a loop recorder replacement scheduled w Dr. Bills that she needs to r/s until May due to some personal issues. She would also like an in person apt scheduled if possible. She noted she has already had a phone call to discuss her testing results and a ablation but gets more out if an in person apt. # [phone] Thank you Lindsey Dailey Patient Physical Therapy Aide Department of Medicine Access Center documented in this encounter Plan of Treatment Upcoming Encounters Date Type Department Care Team (Latest Contact Info) Description 05/12/2025 Hospital Encounter [facility] Electrophysiology Lab [address] [place] [address] Sandra Bills MD, MS [address] [address] [email or web address] 05/12/2025 Procedure Pass [facility] Electrophysiology Lab [address] [place] [address] 05/12/2025 11:00 AM EDT - 05/12/2025 12:30 PM EDT Surgery [facility] Electrophysiology Lab [address] [place] [address] Sandra Bills MD, MS [address] [address] [email or web address] Loop Recorder, Removal documented as of this encounter Visit Diagnoses Not on filedocumented in this encounter Care Teams Wireline Supervisor Relationship Specialty Start Date End Date Andre Tipton MD [address] [place] [address] [address] [place] [address] PCP - General Internal Medicine 03/03/15 Sandra Bills MD, MS 75 [facility] [address] [place] [address] [email or web address] Cardiology 06/20/23 Inderjit Broderick MD [address] [facility] [address] [place] [address] Cardiology 06/20/23 documented as of this encounter Additional Source Comments The information contained in this document represents components of the legal health record. It is not the complete legal health record.[facility]
--- OUTSIDE RECORDS SUMMARY | 2025-01-22 16:52 | XMS_ITS | Encounter Summary ---
Author Organization [employer] [facility] Address [address] [facility] [address] [place] [address] Phone Care Team Providers Care Lineman Service Or Work Dispatcher Name Role Phone Andre Tipton MD Primary Care Provider [phone] Sandra Bills MD, MS Unavailable [phone] Inderjit Broderick MD Unavailable [phone] Reason for Referral * MRI/CAT Scan - Closed Specialty Diagnoses / Procedures Referred By Contac t Referred To Contact Radiology Diagnoses Paroxysmal ventricular tachycardia PVC (premature ventricular contraction) Procedures MRI Cardiac System, Provider Not In, PhD [address] [address] Referral ID Status Reason Start Date Expiration Date Visits Re quested Visits Authorized [id number] Closed 03/20/2019 05/18/2019 1 1 Encounter Details Date Type Department Care Team (Late st Contact Info) Description 03/19/2019 Ancillary Orders [facility] [address] [place] [address] System, Provider Not In, PhD [address] [address] Paroxysmal ventricular tachycardia; PVC (premature ventricular contraction) [...] (Latest Contact Info) Description 05/12/2025 Hospital Encounter [facility] Electrophysiology Lab [address] [place] [address] Sandra Bills MD, MS [address] [address] [email or web address] 05/12/2025 Procedure Pass [facility] Electrophysiology Lab [address] [place] [address] 05/12/2025 11:00 AM EDT - 05/12/2025 12:30 PM EDT Surgery [facility] Electrophysiology Lab [address] [place] [address] Sandra Bills MD, MS [address] [address] [email or web address] Loop Recorder, Removal documented as of this [...] Exam Date: Apr 09, 2019 Exam #: [id number] BSA: 1.66 m2 Referring MD: Rian Correa [...] Exam Date: Apr 09, 2019 Exam #: [id number] BSA: 1.66 m2 Referring MD: Rian Correa [...] tachycardia) documented in this encounter Care Teams Lineman Service Or Work Dispatcher Relationship Specialty Start Date End Date Saeed, Andre Stoner MD [address] [place] [address] [address] [place] [address] PCP - General Internal Medicine 03/03/15 Sandra Bills MD, MS [address] [place], [place] [address] [place] [address] [email or web address] Cardiology 06/20/23 Inderjit Broderick MD [address] [address] Cardiology 06/20/23 documented as of this encounter Additional Source Comments The information contained in this document represents components of the legal health record. It is not the complete legal health record.[facility]
--- OUTSIDE RECORDS SUMMARY | 2025-01-22 16:52 | XMS_ITS | Encounter Summary ---
Author Organization [facility] Address [facility] [employer] [facility] [address] [place] [address] Phone Care Team Providers Care Muck Miner Blasting Name Role Phone Andre Tiptno MD Primary Care Provider [phone] Sandra Bills MD, MS Unavailable [phone] Inderjit Broderick MD Unavailable [phone] Encounter Details Date Type Department Care Team (Late st Contact Info) Description 03/19/2019 Procedure Pass [facility] [address] [place] [address] Social History Tobacco Use Types Packs/Day Years [...] Encounter [facility] Electrophysiology Lab [address] [place] [address] Sandra Bills MD, MS 75 [facility] [address] [place] [address] [email or web address] 05/12/2025 Procedure Pass [facility] Electrophysiology Lab [address] [place] [address] 05/12/2025 11:00 AM EDT - 05/12/2025 12:30 PM EDT Surgery [facility] Electrophysiology Lab [address] [place] [address] Sandra Bills MD, MS 75 [facility] [place] [address] [email or web address] Loop Recorder, Removal documented as of this encounter Visit Diagnoses Not on filedocumented in this encounter Care Teams Muck Miner Blasting Relationship Specialty Start Date End Date Po, Andre Stoner MD [address] [place] [address] [address] [place] [address] PCP - General Internal Medicine 03/03/15 Sandra Bills MD, MS [address] [place] [address] [email or web address] Cardiology 06/20/23 Inderjit Broderick MD [address] [place] [address] [address] [place] [address] Cardiology 06/20/23 documented as of this encounter Additional Source Comments The information contained in this document represents components of the legal health record. It is not the complete legal health record.[facility]
== END 2025-01-22 10:19 | disposition home or self-care (01) ==
LOC: HO.HMCH 09:01
PROVIDERS: PCP Internal Medicine; Visit Provider Internal Medicine
DX: Z00.00 Encounter for general adult medical examination without abnormal findings (principal); E66.3 Overweight; I47.10 Supraventricular tachycardia, unspecified; F41.1 Generalized anxiety disorder; N39.46 Mixed incontinence

== ENCOUNTER → 2025-01-22 09:00 | Outpatient (BNVA) | payer MEDICARE, SELFPAY | PROVIDERS: PCP Internal Medicine; Visit Provider Internal Medicine | DX: Z00.00 Encounter for general adult medical examination without abnormal findings (principal); I47.19 Other supraventricular tachycardia; E66.3 Overweight; F41.1 Generalized anxiety disorder; N39.46 Mixed incontinence | CPT/HCPCS: 99396 ==

== ENCOUNTER 2025-03-05 09:54 | Outpatient (AMB) | payer MEDICARE, SELFPAY ==
--- OUTSIDE RECORDS SUMMARY | 2024-09-24 04:40 | XMS_ITS ---
Author Organization [facility] Address [address] [facility] [address] [place] [address] Care Team Providers Care Ruling Machine Set Up Operator Name Role Phone CIERRA ROBERTS M.D. Primary Care Provider Lorena Crump Unavailable [phone] REASON FOR VISIT HR MEDICARE PE Encounters Encounter Location Date Provider Diagnosis [facility] [address] [place] [address] [address] [place] [address] 09/24/2024 Lorena Jason Plan Of Treatment Next Appt Details Provider Name:Lorenayonathan codybibiana, 10/21/2025 09:40:00 AM, [address] [place] [address], [address], [place], [address], Progress Notes * ANGEL HERRERADOB: [birth year] (64 yo F)Acc No.[id number]:09/24/2024 PROGRESS NOTES Patient: Janeth ANGEL LOPEZ Appointment Provider: Allyson Jason M.D. :1960 A ge:64 Y S ex:Female Date:09/24/2024 Address:[address] [place], [place] [id number] Pcp:CIERRA ROBERTS M.D. Subjective: * Chief Complaints: * 1 . HR MEDICARE PE. * Medical History: Objective: * Vitals: Assessment: Plan: * Treatment: * Images: Billing Information: * Visit Code: * Procedure Codes: * Electronic signature of Lynn Jason MD on 03/05/2025 at 10:41 AM EST Sign off status: Pending * Appointment Provider: Allyson Jason M.D. Date: 0 09/24/2024 Generated for Jake john/Bhaskar/Taisha on: 1 10:41 AM EST
[2025-03-05 09:59] VITALS: BP 118/70; PULSE 77; O2SAT 98
--- NOTE | 2025-03-05 09:59 | A.OFFPC_ITS ---
Vital Signs 03/05/25 09:59 Height 5 ft 3 in BMI Reason not done Patient refused/unable BP 118/70 Blood Pressure Location Lt brachial Position Sitting Pulse 77 Pulse Source Pulse Oximeter Pulse Oximetry (%) 98 Oxygen Delivery Method Room Air Intake Visit Reasons: PSVT,. CHANELL Allergies Iodinated Contrast Media (IV CONTRAST) Allergy (Intermediate, Verified 03/05/25 09:59) PERIORBITAL SWELLING ciprofloxacin (From CIPRO) Allergy (Unknown, Verified 03/05/25 09:59) Nausea iodine Allergy (Unknown, Verified 03/05/25 09:59) from the CTSCAn had sweling periorbital metronidazole (Flagyl) Allergy (Unknown, Verified 03/05/25 09:59) headaches Sulfa (Sulfonamide Antibiotics) Allergy (Unknown, Verified 03/05/25 09:59) headache, severe migraine sulfamethoxazole (From BACTRIM) Allergy (Unknown, Verified 03/05/25 09:59) HEADACHE trimethoprim (From BACTRIM) Allergy (Unknown, Verified 03/05/25 09:59) HEADACHE Medication List - Last Reconciled 03/05/25 by Andre Tipton MD baloxavir marboxil 40 mg PO ONCE lorazepam 0.5 mg orally TID or 4x a day or( 2tabs Twice a day) as directed PRN; metoprolol tartrate 12.5 mg PO BID Tobacco use date assessed: 11/14/24 Dental Screening Dental Screen Date: 11/14/24 HPI HPI Comments History of Present Illness Details History of Present Illness The patient is a 64-year-old female presenting for a follow-up visit. Her medical history is significant for hypercholesterolemia, paroxysmal supraventricular tachycardia (PSVT), for which she follows with cardiology, mixed urinary incontinence, generalized anxiety disorder, cholelithiasis, and osteoarthritis. She continues with counseling and therapy for her anxiety. Her last colonoscopy was in October 2023, which showed a tubular adenoma of the colon. Blood work from November was notable for an LDL cholesterol of 158 mg/dL, but her blood count, electrolytes, renal function, blood sugar, and liver function were normal. Health Maintenance The patient is due for a mammogram. Social History Results - Labs (from November): normal blood co unt, electrolytes, renal function, blood sugar, and liver function. - Cholesterol panel (from November): LD L of 158 mg/dL. - Colonoscopy (October 2023): tubular jose m noma of the colon. [facility] Medical History (Updated 02/24/25 @ 22:05 by Andre Tipton MD) Overweight Overactive adrenal gland Hyperventilation syndrome Vitamin D deficiency LLQ pain Abdominal pain Impacted cerumen of right ear Rectal bleed Blood pressure elevated without history of HTN Breast cancer screening by mammogram Hyperventilation syndrome Diverticular disease Mitral valve prolapse Vitamin D deficiency Hypercholesterolemia Polycystic ovaries Paroxysmal supraventricular tachycardia Surgical History History of colonoscopy History of polycystic ovaries S/P colon resection History of lymph node excision History of cardiac radiofrequency ablation Family History Father Myocardial infarction CVD (cardiovascular disease) Hypertension Mother CHF (congestive heart failure) Hypertension CAD (coronary artery disease) Maternal Grandfather Brain tumor Brother No problems noted. Sister No problems noted. Son No problems noted. Social History Housing: House Alcohol intake: never Patient Tobacco Use Status: Never used Tobacco Tobacco use type: Cigarette e-Cigarette/Vaping Use: Never Used Second Hand Smoke Exposure: No service: No Current occupational status: unemployed Cognitive needs: No Hearing needs: No Vision needs: Yes (reading glasses) Questionnaire Thrive Questionnaire Date Thrive assessed: 11/14/24 I am a: Patient What is your living situation today?: I have a steady place to live Within the past 12 months, did the food you bought not last and you didn't have the money to get more?: I choose not to answer this question Within the past 12 months, did you worry whether your food would run out before you got money to buy more?: I choose not to answer this question Do you have trouble paying for medicines?: No Do you have trouble getting transportation to medical appointments?: No Do you have trouble paying your heating and electricity bill?: No Do you have trouble taking care of your child, family member or friend?: No Do you have trouble with day-to-day activities such as bathing, preparing meals, shopping, managing finances, etc.?: No Are you currently unemployed and looking for a job?: No Are you interested in more education?: No Currently or been in a relationship where the following occur: I choose not to answer THRIVE Score: 0 CHANELL-7 AMB Questionnaire CHANELL-7 Date CHANELL - 7 assessed: 03/26/24 Source: Developed by Drs. Ta Redding, Arleen Mckeon, Santosh Rodriguez and colleagues, with an educational donna from [employer]. Review of Systems Narrative Review of Systems Physical exam (Primary Care) Vital Signs: Last Vital Signs Pulse 77 03/05/25 09:59 BP 118/70 03/05/25 09:59 Pulse Ox 98 03/05/25 09:59 Oxygen Delivery Method Room Air 03/05/25 09:59 Tobacco/Smoking Status: Tobacco use Status Tobacco use date assessed 11/14/24 03/05/25 10:00 Patient Tobacco Use Status Never used Tobacco 03/05/25 10:00 Tobacco use type Cigarette 03/05/25 10:00 e-Cigarette/Vaping Use Never Used 03/05/25 10:00 Thrive Assessment: Date of Thrive Assessment Date Thrive assessed 11/14/24 03/05/25 10:00 Currently or been in a relationship where the following occur: I choose not to answer Narrative Physical Exam Const General: alert; No acute distress Eyes Conjunctivae: conjunctivae normal Resp Auscultation: clear to auscultation bilaterally Cardio Rate: regular rate Rhythm: regular rhythm GI Inspection: Yes normal to inspection Extrem General: Yes normal to inspection and No edema Coding Level of Care Code Est Pt Level 4 (90983) Add On Problem Visit Only Diagnoses Generalized anxiety disorder F41.1 Paroxysmal supraventricular tachycardia I47.1 Hypercholesterolemia E78.00 Assessment & Plan Assessment & Plan (1) Generalized anxiety disorder: Comment: Panic attacks. counselling private- DR. Garcia. AQ monday zoom call Code(s): F41.1 - Generalized anxiety disorder Category: Medical Plan: Continue with counseling and therapy (2) Paroxysmal supraventricular tachycardia: Comment: November [address] [facility] cardiac MRI 2017 echo 60-65% mild MR January [address] Broderick and [place] Dr. Ramey April 2019 cardiac MRI ejection fraction 57% normal echocardiogram October 2021 ejection fraction 45-50% Code(s): I47.1 - Supraventricular tachycardia Category: Medical Plan: Continue to monitor. Patient follows up with Cardiology (3) Hypercholesterolemia: Code(s): E78.00 - Pure hypercholesterolemia, unspecified Category: Medical Plan: Avoid fried foods, chicken skin, eggs, butter margarine, pastries and meat. Be it pork or beef they have a lot of cholesterol LDL goal of less than 130 and triglyceride of less than 150 Plan Plan Patient was informed and verbally consented to the use of an ambient scribe for clinic note documentation during this visit. 1. Hypercholesterolemia The plan is to target an LDL goal of less than 130 mg/dL and triglyceride goal of less than 150 mg/dL. 2. Paroxysmal Supraventricular Tachycardia The plan is to continue monitoring. The patient follows with cardiology for this condition. 3. Generalized Anxiety Disorder The plan is to continue with counseling and therapy. Discussion Notes I discussed the patient's ongoing medical conditions, including hypercholesterolemia, PSVT, and generalized anxiety disorder. We reviewed her lab work from November, noting the LDL of 158, and established a goal of getting LDL below 130 mg/dL and triglycerides below 150 mg/dL. I advised her to continue counseling and therapy for anxiety and noted that she follows with cardiology for her PSVT, which will continue to be monitored. We also confirmed that her screening mammogram is currently due. Patient Instructions - Your recent lab work showed that your bad cholesterol (LDL) is high at 158. - We want to work on getting your LDL cholesterol level below 130 and your triglycerides below 150. - Please continue with your counseling and therapy for anxiety. - Continue to see your account support specialist (disability advocate) for your heart rhythm condition. - You are due for a mammogram, which is an important screening for breast cancer. Please schedule this appointment. Medications: New baloxavir marboxil 40 mg PO ONCE 1 tab 0RF R05.9 - Cough, unspecified
--- OUTSIDE RECORDS SUMMARY | 2025-03-05 10:40 | XMS_ITS | Encounter Summary ---
Author Organization [facility] Address [facility] [address] [address] Phone Care Team Providers Care Refractory Grinder Operator Name Role Phone Andre Tipton MD Primary Care Provider [phone] Sandra Bills MD, MS Unavailable [phone] Inderjit Broderick MD Unavailable [phone] Encounter Details Date Type Department Care Team (Late st Contact Info) Description 12/19/2016 Procedure Pass [facility] [address] [place] [address] Social History Tobacco Use Types Packs/Day Years [...] (Latest Contact Info) Description 05/12/2025 Hospital Encounter [facility] [address] [place] [address] Sandra Bills MD, MS 75 [facility] [address] [place] [address] [email or web address] 05/12/2025 Procedure Pass [facility] [address] [place] [address] 05/12/2025 11:00 AM EDT - 05/12/2025 12:30 PM EDT Surgery [facility] Elect[facility]iology Lab [address] [place] [address] Sandra Bills MD, MS [address] [address] [email or web address] Loop Recorder, Removal documented as of this encounter Visit Diagnoses Not on filedocumented in this encounter Care Teams Refractory Grinder Operator Relationship Specialty Start Date End Date Po, Andre Stoner MD [address] [place] [address] [place] [phone] PCP - General Internal Medicine 03/03/15 Sandra Bills MD, MS [address] [place] [address] [email or web address] Cardiology 06/20/23 Inderjit Broderick MD [address] [place] [address] Cardiology 06/20/23 documented as of this encounter Additional Source Comments The information contained in this document represents components of the legal health record. It is not the complete legal health record.[facility]
--- OUTSIDE RECORDS SUMMARY | 2025-03-05 10:40 | XMS_ITS | Patient Health Record ---
Author Organization [facility] Address [address] [place] [phone] Care Team Providers Care Director Of Reimbursement Name Role Phone Andre Tipton MD Primary Care Provider Ta Srinivasan [phone] Allergies Allergen (clinical drug ingredient) Drug/Non Drug [...] Status Risk Notes Problem Diverticulitis of colon (004213616) Diverticulitis of large intestine without perforation or abscess without bleeding (K57.32) Active confirmed Problem Screening for malignant neoplasm of colon (050061011) Encounter for screening for malignant neoplasm of colon (Z12.11) Active confirmed Problem Irritable bowel syndrome (79734154) Irritable bowel syndrome without diarrhea (K58.9) Active confirmed Problem Screening for malignant neoplasm of rectum (109933429) Encounter for screening for malignant neoplasm of rectum (Z12.12) Active confirmed Plan Of Treatment Future Test Test Name Order Date COLONOSCOPY 04/02/2015 Insurance Providers Payer Name Payer Address Payer Phone Subscriber Number Group Number Insured Name Patient Relationship to Insured Coverage Start Date Coverage End Date [facility] [address] [place], [place] [id number] MAGO LozadaANGEL Self - patient is the insured Medical (General) History Medical History History ICD Code Denies MO,DM,CVA,Lung disease,renal dise ase Diagnosed with diverticuliti s early 11/2014 at [facility] -treated with outpt antibiotics-Augmentin(didn't tolerate Cipro/Flagyl)--she describes an abdominal/pelvic CT and pelvic U/S--had a F/U CT on 01/09/15 which showed improvement and no active diverticulitis Cardiac arrhythmmias--on Met oprolol--Bigeminy/Trigeminy and SVT by her report--- she reports that she is going to have a cardiac ablation on 11/26/14 at [facility]--reports that it was not successful--wearing a loop recorder at the present time as of 01/14/15--she also sees Dr. Lacey and is now followed by Dr. Harrison at [facility] instead of the doctor in [place] Surgical History Surgery Date(Month/Year) cyst removal from ovary 1980 benign lymph node removed 1999
--- OUTSIDE RECORDS SUMMARY | 2025-03-05 10:41 | XMS_ITS | Patient Health Record ---
Author Organization [facility] Address [address] [facility] [address] [place] [address] Care Team Providers Care Critical Care Unit Manager Name Role Phone CIERRA ROBERTS M.D. Primary Care Provider Lorena Crump Unavailable [phone] Allergies Allergen (clinical drug ingredient) Drug/Non Drug [...] Status Risk Notes Problem Postmenopausal atrophic vaginitis (25484913) Postmenopausal atrophic vaginitis (N95.2) Active confirmed Problem Urinary incontinence (946265059) Unspecified urinary incontinence (R32) Active confirmed Problem Atrophy of vulva (034872370) Atrophy of vulva (N90.5) Active confirmed Problem Panic disorder without agoraphobia (47437734) Panic disorder without agoraphobia (300.01) Active confirmed Major Problem Cardiac arrhythmia (751069093) Other specified cardiac dysrhythmias (427.89) Active confirmed Major Problem Postmenopausal atrophic vaginitis (51337274) Postmenopausal atrophic vaginitis (627.3) Active confirmed Diag Problem Gynecological examination normal (309183324836110) Routine gynecological examination (V72.31) Active confirmed Major Problem Screening for malignant neoplasm of colon (141943782) Special screening for malignant neoplasms, colon (V76.51) Active confirmed Major Vital Signs Temperature 97.9 degrees Fahrenheit 10/18/2024 Blood pressure diastolic 78 mm Hg 10/18/2024 Height 62.5 in 10/18/2024 Blood pressure systolic 108 mm Hg 10/18/2024 Weight 160 lbs 10/18/2024 BMI 28.79 kg/m2 10/18/2024 Encounters Encounter Location Date Provider Diagnosis [address] [place] [address] 10/18/2024 Lorena Jason Encounter for gynecological examination [...] Provider Name:Lorena cardenas, 10/21/2025 09:40:00 AM, [address] [facility] [address], [address], [place], [address], Insurance Providers Payer Name Payer Address Payer Phone Subscriber Number Group Number Insured Name Patient Relationship to Insured Coverage Start Date Coverage End Date [employer] MEDICARE PPO [address] [place] [address] [phone] [id number] MAGO Lozada ANGEL Self - patient is [...]
--- OUTSIDE RECORDS SUMMARY | 2025-03-05 10:41 | XMS_ITS | Encounter Summary ---
Author Organization [facility] Address [facility] [employer] [address] [address] Phone Care Team Providers Care Field Ironworker Name Role Phone Andre Tipton MD Primary Care Provider [phone] Sandra Bills MD, MS Unavailable [phone] Inderjit Broderick MD Unavailable [phone] Encounter Details Date Type Department Care Team (Late st Contact Info) Description 01/06/2022 Procedure Pass [facility] [address] [place] [address] Social History Tobacco Use Types Packs/Day Years [...] Hospital Encounter [facility] [address] [place] [address] Sandra Bills MD, MS 75 [facility] [address] [place] [address] [email or web address] 05/12/2025 Procedure Pass [facility] [address] [place] [address] 05/12/2025 11:00 AM EDT - 05/12/2025 12:30 PM EDT Surgery [facility] Electrophysiology Lab [address] [place] [address] Sandra Bills MD, MS [address] [address] [email or web address], Removal documented as of this encounter Visit Diagnoses Not on filedocumented in this encounter Care Teams Field Ironworker Relationship Specialty Start Date End Date Po, Andre Stoner MD [address] [place] [address] [place] [phone] PCP - General Internal Medicine 03/03/15 Sandra Bills MD, MS [address] [place] [address] [email or web address] Cardiology 06/20/23 Inderjit Broderick MD [address] [place] [address] Cardiology 06/20/23 documented as of this encounter Additional Source Comments The information contained in this document represents components of the legal health record. It is not the complete legal health record.[facility]
--- OUTSIDE RECORDS SUMMARY | 2025-03-05 10:41 | XMS_ITS | Clinical Summary ---
Author Organization [facility] Address [facility] [employer] [address] [address] Phone Care Team Providers Care Chef & Owner Name Role Phone Andre Tipton MD Primary Care Provider [phone] Sandra Bills MD, MS Unavailable [phone] Inderjit Broderick MD Unavailable [phone] Allergies Active Allergy Reactions Criticality Noted Date [...] Type Department Care Team Description 01/22/2025 Telephone [facility] at [facility] [address] [place] [address] Sandra Bills MD, MS Negar.pt advice/sched coord from Last 3 Months Social History Tobacco [...] (Latest Contact Info) Description 05/12/2025 Hospital Encounter [facility] Electrophysiology Lab [address] [place] [address] Sandra Bills MD, MS [address] [address] [email or web address] 05/12/2025 Procedure Pass [facility]iology Lab [address] [place] [address] 05/12/2025 11:00 AM EDT - 05/12/2025 12:30 PM EDT Surgery [facility] Elect[facility]iology Lab [address] [place] [address] Sandra Bills MD, MS [address] [address] [email or web address] Loop Recorder, Removal Health Maintenance Due Date [...] 06/14/2023 INFLUENZA VACCINE (#1) 2024 COVID-19 VACCINE ( - 2024-2 6 season) 2024 04/09/2021, 08/18/2020, [...] this topic Medical Devices Implanted Type Area Door Clamper Device Identifier Shelf Expiration Date Model / Serial / Lot Implantable Monitor- 3 Implanted:07/08 (Quantity not on file) Implantable Monitor [employer] / [id number] / Description:Loop monitor Insurance MEDICARE PPO BLUE REPLACEMENT MEDICARE PPO BLUE REPLACEMENT MEDICARE PPO BLUE REPLACEMENT MEDICARE PPO BLUE REPLACEMENT MEDICARE PPO BLUE REPLACEMENT MEDICARE PPO BLUE REPLACEMENT MEDICARE PPO BLUE REPLACEMENT MEDICARE PPO BLUE REPLAC[place] BLUE REPLACEMENT Care Teams Chef & Owner Relationship Specialty Start Date End Date Andre Tipton MD [address] [place] [address] [address] [place] [phone] PCP - General Internal Medicine 03/03/15 Sandra Bills MD, MS [employer] [address] [address] [email or web address] Cardiology 06/20/23 Inderjit Broderick MD [address] [place] [address] Cardiology 06/20/23 Additional Source Comments The information contained in this document represents components of the legal health record. It is not the complete legal health record.[facility]
--- OUTSIDE RECORDS SUMMARY | 2025-03-05 10:41 | XMS_ITS | Encounter Summary ---
Author Organization [facility] Address [facility] [address] [place] [address] Phone Care Team Providers Care Wheel Tuner Name Role Phone Andre Tipton MD Primary Care Provider [phone] Sandra Bills MD, MS Unavailable [phone] Inderjit Broderick MD Unavailable [phone] Encounter Details Date Type Department Care Team (Late st Contact Info) Description 09/08/2021 Procedure Pass [facility] [address] [facility], [address], [address] [place] [address] Social History Tobacco Use Types Packs/Day Years [...] Encounter [facility] [address] [place] [address] Sandra Bills MD, MS 75 [facility] [address] [place] [address] [email or web address] 05/12/2025 Procedure Pass [facility] 75 [place] [address] 05/12/2025 11:00 AM EDT - 05/12/2025 12:30 PM EDT Surgery [facility] [address] [place] [address] Sandra Bills MD, MS [address] [address] [email or web address] Loop [email or web address], Removal documented as of this encounter Visit Diagnoses Not on filedocumented in this encounter Care Teams Wheel Tuner Relationship Specialty Start Date End Date Po, Andre Stoner MD [address] [place] [address] [place] [phone] PCP - General Internal Medicine 03/03/15 Sandra Bills MD, MS [address] [place] [address] [email or web address] Cardiology 06/20/23 Inderjit Broderick MD [address] [place] [address] Cardiology 06/20/23 documented as of this encounter Additional Source Comments The information contained in this document represents components of the legal health record. It is not the complete legal health record.[facility]
--- OUTSIDE RECORDS SUMMARY | 2025-03-05 10:41 | XMS_ITS | Encounter Summary ---
Author Organization [facility] Address [address] [facility] [address] [place] [address] Phone Care Team Providers Care Hospice Manager Name Role Phone Andre Tipton MD Primary Care Provider [phone] Sandra Bills MD, MS Unavailable [phone] Inderjit Broderick MD Unavailable [phone] Encounter Details Date Type Department Care Team (Late st Contact Info) Description 04/28/2023 Ancillary Orders [facility] Radiology [address] [place] [address] Andre Tipton MD [address] [place] [address] Cardiac abnormality (Primary Dx) Social [...] (Latest Contact Info) Description 05/12/2025 Hospital Encounter [facility] Electrophysiology Lab [address] [place] [address] Sandra Bills MD, MS [address] [address] [email or web address] 05/12/2025 Procedure Pass [facility] Electrophysiology Lab [address] [place] [address] 05/12/2025 11:00 AM EDT - 05/12/2025 12:30 PM EDT Surgery [facility] Electrophysiology Lab [address] [place] [address] Sandra Bills MD, MS [address] [address] [email or web address] Loop Recorder, Removal documented as of this encounter Visit Diagnoses Diagnosis Cardiac abnormality- Primary Unspecified congenital anomaly of heart Palpitations Ventricular premature beats Other premature beats NSVT (nonsustained ventricular tachycardia) Palpitations Ventricular premature beats Other premature beats NSVT (nonsustained ventricular tachycardia) documented in this encounter Care Teams Hospice Manager Relationship Specialty Start Date End Date Po, Andre Stoner MD [address] [place] [address] Drive [address] [place] [phone] PCP - General Internal Medicine 03/03/15 Sandra Bills MD, MS [address] [place] [address] [email or web address] Cardiology 06/20/23 Inderjit Broderick MD [address] [place] [address] Cardiology 06/20/23 documented as of this encounter Additional Source Comments The information contained in this document represents components of the legal health record. It is not the complete legal health record.[facility]
--- OUTSIDE RECORDS SUMMARY | 2025-03-05 10:41 | XMS_ITS | Encounter Summary ---
Author Organization [employer] [facility] Address Pending sale to [facility] [employer] [facility] [address] [place] [address] Phone Care Team Providers Care Drop Wire Hanger Name Role Phone Andre Tipton MD Primary Care Provider [phone] Sandra Bills MD, MS Unavailable [phone] Inderjit Broderick MD Unavailable Encounter Details Date Type Department Care Team (Late st Contact Info) Description 12/16/2016 Ancillary Orders [address] [address] System, Provider Not In, PhD Partners [address] [address] Ventricular premature contractions; Palpitations Social History Tobacco [...] (Latest Contact Info) Description 05/12/2025 Hospital Encounter [facility] Electrophysiology Lab [address] [place] [address] Sandra Bills MD, MS [address] [facility] [address] [place] [address] [email or web address] 05/12/2025 Procedure Pass [facility] Electrophysiology Lab [address] [place] [address] 05/12/2025 11:00 AM EDT - 05/12/2025 12:30 PM EDT Surgery [facility] Electrophysiology Lab [address] [place] [address] Sandra Bills MD, MS [address] [address] [email or web address] Loop Recorder, Removal documented as of this encounter Visit Diagnoses Diagnosis Ventricular premature contractions Other premature beats Palpitations Palpitations Ventricular premature beats Other premature beats NSVT (nonsustained ventricular tachycardia) Palpitations Ventricular premature beats Other premature beats NSVT (nonsustained ventricular tachycardia) documented in this encounter Care Teams Drop Wire Hanger Relationship Specialty Start Date End Date Po, Andre Stoner MD [address] [place] [address] [place] [phone] PCP - General Internal Medicine 03/03/15 Sandra Bills MD, MS [address] [place] [address] [email or web address] Cardiology 06/20/23 Inderjit Broderick MD [address] [place] [address] Cardiology 06/20/23 documented as of this encounter Additional Source Comments The information contained in this document represents components of the legal health record. It is not the complete legal health record.[facility]
--- OUTSIDE RECORDS SUMMARY | 2025-03-05 10:41 | XMS_ITS | Encounter Summary ---
Author Organization [employer] [facility] Address [address] [employer] [facility] [address] [place] [address] Phone Care Team Providers Care Nutrition Faculty Member Name Role Phone Andre Tipton MD Primary Care Provider [phone] Sandra Bills MD, MS Unavailable Inderjit Broderick MD Unavailable [phone] Encounter Details Date Type Department Care Team (Late st Contact Info) Description 06/07/2023 Procedure Pass [facility] Women's Cardio EP Device Monitoring [address] [place], [place] [id number] Social History Tobacco Use Types Packs/Day Years [...] (Latest Contact Info) Description 05/12/2025 Hospital Encounter [facility] Electrophysiology Lab [address] [place] [address] Sandra Bills MD, MS [address] [address] [email or web address] 05/12/2025 Procedure Pass [facility] Electrophysiology Lab [address] [place] [address] 05/12/2025 11:00 AM EDT - 05/12/2025 12:30 PM EDT Surgery [facility] Electrophysiology Lab [address] [place] [address] Sandra Bills MD, MS [address] [address] [email or web address] Loop Recorder, Removal documented as of this encounter Visit Diagnoses Not on filedocumented in this encounter Care Teams Nutrition Faculty Member Relationship Specialty Start Date End Date Po, Andre Stoner MD [address] [place] [address] [place] [phone] PCP - General Internal Medicine 03/03/15 Sandra Bills MD, MS [address] [place] [address] [email or web address] Cardiology 06/20/23 Inderjit Broderick MD [address] [place] [address] Cardiology 06/20/23 documented as of this encounter Additional Source Comments The information contained in this document represents components of the legal health record. It is not the complete legal health record.[facility]
--- OUTSIDE RECORDS SUMMARY | 2025-03-05 10:41 | XMS_ITS | Encounter Summary ---
Author Organization [facility] Address [facility] [address] [place] [address] Phone Care Team Providers Care Senior Clinician Name Role Phone Andre Tipton MD Primary Care Provider [phone] Sandra Bills MD, MS Unavailable Inderjit Broderick MD Unavailable [phone] Encounter Details Date Type Department Care Team (Late st Contact Info) Description 06/14/2023 Procedure Pass [facility] EKG [address] [place] [address] Social History Tobacco Use Types Packs/Day Years [...] (Latest Contact Info) Description 05/12/2025 Hospital Encounter [facility] Electrophysiology Lab [address] [place] [address] Sandra Bills MD, MS [address] [address] [email or web address] 05/12/2025 Procedure Pass [facility] Electrophysiology Lab [address] [place] [address] 05/12/2025 11:00 AM EDT - 05/12/2025 12:30 PM EDT Surgery [facility] Electrophysiology Lab [address] [place] [address] Sandra Bills MD, MS [address] [address] [email or web address] Loop Recorder, Removal documented as of this encounter Visit Diagnoses Not on filedocumented in this encounter Care Teams Senior Clinician Relationship Specialty Start Date End Date Po, Andre Stoner MD [address] [place] [address] [place] [phone] PCP - General Internal Medicine 03/03/15 Sandra Bills MD, MS [address] [place] [address] [email or web address] Cardiology 06/20/23 Inderjit Broderick MD [address] [place] [address] Cardiology 06/20/23 documented as of this encounter Additional Source Comments The information contained in this document represents components of the legal health record. It is not the complete legal health record.[facility]
--- OUTSIDE RECORDS SUMMARY | 2025-03-05 10:41 | XMS_ITS | Encounter Summary ---
Author Organization [employer] [facility] Address [address] [employer] [facility] [address] [place] [address] Phone Care Team Providers Care Sql Ssrs Developer Name Role Phone Andre Tipton MD Primary Care Provider [phone] Sandra Bills MD, MS Unavailable [phone] Inderjit Broderick MD Unavailable [phone] Encounter Details Date Type Department Care Team (Late st Contact Info) Description 12/12/2023 Procedure Pass [facility] [address] [place] [address] Social History Tobacco Use Types Packs/Day Years [...] (Latest Contact Info) Description 05/12/2025 Hospital Encounter [facility] Electrophysiology Lab [address] [place] [address] Sandra Bills MD, MS [address] [address] [email or web address] 05/12/2025 Procedure Pass [facility] Electrophysiology Lab [address] [place] [address] 05/12/2025 11:00 AM EDT - 05/12/2025 12:30 PM EDT Surgery [facility] Electrophysiology Lab [address] [place] [address] Sandra Bills MD, MS [address] [address] [email or web address] Loop Recorder, Removal documented as of this encounter Visit Diagnoses Not on filedocumented in this encounter Care Teams Sql Ssrs Developer Relationship Specialty Start Date End Date Po, Andre Stoner MD [address] [place] [address] [place] [phone] PCP - General Internal Medicine 03/03/15 Sandra Bills MD, MS [address] [place] [address] [email or web address] Cardiology 06/20/23 Inderjit Broderick MD [address] [place] [address] Cardiology 06/20/23 documented as of this encounter Additional Source Comments The information contained in this document represents components of the legal health record. It is not the complete legal health record.[facility]
--- OUTSIDE RECORDS SUMMARY | 2025-03-05 10:41 | XMS_ITS | Encounter Summary ---
Author Organization [facility] Address [address] [employer] [facility] [address] [place] [address] Phone Care Team Providers Care Front Desk Administrator Name Role Phone Andre Tipton MD Primary Care Provider [phone] Sandra Bills MD, MS Unavailable [phone] Inderjit Broderick MD Unavailable [phone] Encounter Details Date Type Department Care Team (Latest Contact Info) Description 06/07/2023 Transcribe Orders [facility]'s Arrhythmia Service at the [facility] [address] [place] [address] Verena Cruz [address] [place] [address] [email or web address] Implantable loop recorder present (Primary Dx) Social [...] (Latest Contact Info) Description 05/12/2025 Hospital Encounter [facility] Electrophysiology Lab 75 [place] [address] Sandra Bills MD, MS [address] [address] [email or web address] 05/12/2025 Procedure Pass [facility] Electrophysiology Lab 75 [place] [address] 05/12/2025 11:00 AM EDT - 05/12/2025 12:30 PM EDT Surgery [facility] Electrophysiology Lab [address] [place] [address] Sandra Bills MD, MS [address] [address] [email or web address] Loop Recorder, Removal Pending Results Name Type [...] tachycardia) documented in this encounter Care Teams Front Desk Administrator Relationship Specialty Start Date End Date Andre Tipton MD [address] [place] [phone] PCP - General Internal Medicine 03/03/15 Sandra Bills MD, MS [address] [address] [email or web address] Cardiology 06/20/23 Inderjit Broderick MD [address] [address] Cardiology 06/20/23 documented as of this encounter Additional Source Comments The information contained in this document represents components of the legal health record. It is not the complete legal health record.[facility]
--- OUTSIDE RECORDS SUMMARY | 2025-03-05 10:41 | XMS_ITS | Encounter Summary ---
Author Organization [employer] [facility] Address [address] [employer] [facility] [address] [place] [address] Phone Care Team Providers Care Director Of Partnerships Name Role Phone Andre Tipton MD Primary Care Provider Sandra Bills MD, MS Unavailable [phone] Inderjit Broderick MD Unavailable [phone] Reason for Referral * MRI/CAT Scan - Closed Specialty Diagnoses / Procedures Referred By Contac t Referred To Contact Radiology Diagnoses Atrial fibrillation, unspecified type Procedures MRI Cardiac Non-Stress System, Provider Not In, PhD [address] [address] Referral ID Status Reason Start Date Expiration Date Visits Re quested Visits Authorized [id number] Closed 12/19/2016 12/19/2017 1 1 Encounter Details Date Type Department Care Team (Latest Contact Info) Description 12/19/2016 Transcribe Orders [facility] [address] [place] [address] Rica Palacios [address] [place] [address] [email or web address] Atrial fibrillation, unspecified type (Primary Dx) Social [...] (Latest Contact Info) Description 05/12/2025 Hospital Encounter [facility] Electrophysiology Lab [address] [place] [address] Sandra Bills MD, MS [address] [address] [email or web address] 05/12/2025 Procedure Pass [facility] Electrophysiology Lab [address] [place] [address] 05/12/2025 11:00 AM EDT - 05/12/2025 12:30 PM EDT Surgery [facility] Electrophysiology Lab [address] [place] [address] Sandra Bills MD, MS [address] [address] [email or web address] Loop Recorder, Removal documented as of [...] Exam Date: Dec 27, 2016 Exam #: [id number] BSA: 1.65 m2 Referring MD: Jeannette Sanchez [...] Fellow: Topher Phillips MD & Evie Cohen [facility] Cardiac MRI Attending: Terry Hamm MD I, Terry Hamm MD, the teaching physician, have reviewed the images and agreed with the report as written. Procedure Note Terry Hamm MD - 12/28/2016 CARDIOVASCULAR MAGNETIC RESONANCE IMAGING REPORT BASIC PATIENT AND EXAM INFORMATION: Patient: Catherine Snider Sex: Female Height: 1.6 m : 1960 Weight: 62.51 kg Exam Date: Dec 27, 2016 Exam #: [id number] BSA: 1.65 m2 Referring MD: Jeannette Sanchez [...] Fellow: Topher Phillips MD & Evie Cohen [facility] Cardiac MRI Attending: Terry Hamm MD I, [...] tachycardia) documented in this encounter Care Teams Director Of Partnerships Relationship Specialty Start Date End Date Po, Andre Stoner MD [address] [place] [address] [place] [phone] PCP - General Internal Medicine 03/03/15 Sandra Bills MD, MS [address] [place] [address] [email or web address] Cardiology 06/20/23 Inderjit Broderick MD [address] [place] [address] Cardiology 06/20/23 documented as of this encounter Additional Source Comments The information contained in this document represents components of the legal health record. It is not the complete legal health record.[facility]
--- OUTSIDE RECORDS SUMMARY | 2025-03-05 10:41 | XMS_ITS | Clinical Summary ---
Author Organization [address] [facility] Address [address] [place] [address] Phone Care Team Providers Care Milk Bottling Machine Operator Name Role Phone Andre Tipton MD Primary Care Provider [phone] Encounters Date Type Department Care Team Description 02/05/2025 5:30 PM EST Ancillary Procedure [facility] [address] [place] [address] 01/28/2025 7:50 AM EST Ancillary Procedure [facility] [address] [place] [address] 01/28/2025 Telephone [facility] [address] [place] [address] Jacqueline Torres PA 12/26/2024 11:30 AM EDT Ancillary Procedure [facility] [address] [place] [address] 12/03/2024 3:25 PM EDT Ancillary Procedure [facility] [address] [place] [address] from Last 3 Months Family History Medical [...] this topic Medical Devices Implanted Type Area Car Park Attendant Device Identifier Shelf Expiration Date Model / Serial / Lot [employer]ak Biomonitor Iiim [id number] Implanted:07/2022 (Quantity not on file) Cardiac Loop Recorder [employer] BIOMONITOR IIIM / [id number] / Bsci-Crm [id number] Implanted:10/06 (Quantity not on file) Cardiac Loop Recorder [employer] CARD RHYTHM MGMT [id number] / [id number] / Procedures Procedure Name Priority Date/Time Associated Diagnosis Comments CARDIAC DEVICE CHECK- REMOTE- MURJ Routine 02/05/2025 5:26 PM EST CARDIAC DEVICE CHECK- REMOTE- MURJ Routine 01/28/2025 7:45 AM EST CARDIAC DEVICE CHECK- REMOTE- MURJ Routine 12/26/2024 11:25 AM EDT CARDIAC DEVICE CHECK- REMOTE- MURJ Routine 12/03/2024 3:24 PM EDT from Last 3 Months Results * Cardiac device check - Remote- MURJ (02/05/2025 5:26 PM EST) Only the most recent of4 resultswithin the time period is included. Date Time Interrogation Session [id number] CV DEVICE CHECK Type Interrogation Session Remote Scheduled CV DEVICE CHECK Implantable Pulse Generator Car Park Attendant BSX CV DEVICE CHECK Implantable Pulse Generator Type ILR CV DEVICE CHECK Implantable Pulse Generator Model M312 CV DEVICE CHECK Implantable Pulse Generator Serial Number [id number] CV DEVICE CHECK Implantable Pulse Generator Implant Date [id number] CV DEVICE CHECK Battery Status Beginning of Service CV DEVICE CHECK Atrial Tachy Statistic AT/AF [place] Percent 0.00 CV DEVICE CHECK Date of Service 2025-02-03 CV DEVICE CHECK Anatomical Region Laterality Modality Device Interroga tion 01/20/2025 4:17 AM EST Impressions 02/05/2025 5:17 PM EST Normal Remote: With Events * Events or Alerts: 6 False episodes of Bradycardia were noted / Under sensing with PVC's * This is a normal remote diagnostic device check * Battery data was reviewed * Battery status: OLIVA, * Presenting rhythm reviewed * Heart Rate Histograms reviewed Narrative Procedure Note Inderjit Broderick MD - 02/05/2025 IMPRESSION: Normal Remote: With Events * Events or Alerts: 6 False episodes of Bradycardia were noted / Undersensing with PVC's * This is a normal remote diagnostic device check * Battery data was reviewed * Battery status: OLIVA, * Presenting rhythm reviewed * Heart Rate Histograms reviewed Inderjit Broderick MD CV IMPLANTABLE CARDIAC DEVICE PROCEDURES Final Result from Last 3 Months Insurance BLUE CROSS - [place] MEDICARE ADVANTAGE Care Teams Milk Bottling Machine Operator Relationship Specialty Start Date End Date Andre Tipton MD [address] [place] [address] Cait[address] [facility] [place] [address] PCP - General Internal Medicine 02/13/15
--- OUTSIDE RECORDS SUMMARY | 2025-03-05 10:42 | XMS_ITS | Encounter Summary ---
Author Organization [employer] [facility] Address [facility] [employer] [address] [address] Phone Care Team Providers Care Energy Attorney Name Role Phone Andre Tipton MD Primary Care Provider [phone] Sandra Bills MD, MS Unavailable [phone] Inderjit Broderick MD Unavailable [phone] Encounter Details Date Type Department Care Team (Late st Contact Info) Description 03/18/2019 Ancillary Orders [facility] Nuclear Medicine [address] [place] [address] System, Provider Not In, [place] [address] Preop examination; Paroxysmal ventricular tachycardia; PVC (premature [...] (Latest Contact Info) Description 05/12/2025 Hospital Encounter [facility] Electrophysiology Lab [address] [place] [address] Sandra Bills MD, MS 75 [facility] [address] [place], [place] [phone] [email or web address] 05/12/2025 Procedure Pass [facility] Electrophysiology Lab [address] [place] [address] 05/12/2025 11:00 AM EDT - 05/12/2025 12:30 PM EDT Surgery [facility] Electrophysiology Lab [address] [place] [address] Sandra Bills MD, MS [address] [address] [email or web address] Loop Recorder, Removal documented as of this encounter Visit Diagnoses Diagnosis Preop examination Unspecified pre-operative examination Paroxysmal ventricular tachycardia PVC (premature ventricular contraction) Other premature beats Palpitations Palpitations Ventricular premature beats Other premature beats NSVT (nonsustained ventricular tachycardia) Palpitations Ventricular premature beats Other premature beats NSVT (nonsustained ventricular tachycardia) documented in this encounter Care Teams Energy Attorney Relationship Specialty Start Date End Date Po, Andre Stoner MD [address] [place] [address] [address] [place] [phone] PCP - General Internal Medicine 03/03/15 Sandra Bills MD, MS [address] [place] [address] [email or web address] Cardiology 06/20/23 Inderjit Broderick MD [address] [place] [address] Cardiology 06/20/23 documented as of this encounter Additional Source Comments The information contained in this document represents components of the legal health record. It is not the complete legal health record.[facility]
--- OUTSIDE RECORDS SUMMARY | 2025-03-05 10:42 | XMS_ITS | Encounter Summary ---
Author Organization [employer] Address [facility] [employer] [address] [address] Phone Care Team Providers Care Hairspring Setter Name Role Phone Andre Tipton MD Primary Care Provider [phone] Sandra Bills MD, MS Unavailable [phone] Inderjit Broderick MD Unavailable [phone] Encounter Details Date Type Department Care Team (Late st Contact Info) Description 03/19/2019 Procedure Pass [facility] [address] [place] [phone] Social History Tobacco Use Types Packs/Day Years [...] Hospital Encounter [facility] [address] [place] [address] Sandra Bills MD, MS [address] [facility] [address] [place] [address] [email or web address] 05/12/2025 Procedure Pass [facility] [address] [place] [address] 05/12/2025 11:00 AM EDT - 05/12/2025 12:30 PM EDT Surgery [facility] Electrophysiology Lab [address] [place] [address] Sandra Bills MD, MS [address] [address] [email or web address] Loop Recorder, Removal documented as of this encounter Visit Diagnoses Not on filedocumented in this encounter Care Teams Hairspring Setter Relationship Specialty Start Date End Date Po, Andre Stoner MD [address] [place] [address] [place] [phone] PCP - General Internal Medicine 03/03/15 Sandra Bills MD, MS [address] [place] [phone] [email or web address] Cardiology 06/20/23 Inderjit Broderick MD [address] [place] [address] Cardiology 06/20/23 documented as of this encounter Additional Source Comments The information contained in this document represents components of the legal health record. It is not the complete legal health record.[facility]
--- OUTSIDE RECORDS SUMMARY | 2025-03-05 10:43 | XMS_ITS | Encounter Summary ---
Author Organization [facility] Address [address] [employer] [address] [place] [address] Phone Care Team Providers Care Career Information Specialist Name Role Phone Andre Tipton MD Primary Care Provider [phone] Sandra Bills MD, MS Unavailable [phone] Inderjit Broderick MD Unavailable [phone] Reason for Visit * Reason Onset Date Comments Negar.pt advice/sched coord 01/22/2025 Encounter Details Date Type Department Care Team ([facility] st Contact Info) Description 01/22/2025 Telephone [facility] Arrhythmia Service at the [facility] [address] [place] [address] Sandra Bills MD, MS 75 [facility] [place] [address] [email or web address] Negar.pt advice/sched coord Social History Tobacco Use [...] out if an in person apt. # [phone] Thank you Lindsey Dailey Patient Electrical Prospecting Observer Department of Medicine Access Center documented in this encounter Plan of Treatment Upcoming Encounters Date Type Department Care Team (Latest Contact Info) Description 05/12/2025 Hospital Encounter [facility] Electrophysiology Lab [address] [place] [address] Sandra Bills MD, MS 75 [facility] [address] [place] [address] [email or web address] 05/12/2025 Procedure Pass [facility] Electrophysiology Lab [address] [place] [address] 05/12/2025 11:00 AM EDT - 05/12/2025 12:30 PM EDT Surgery [facility] [address] [place] [address] Sandra Bills MD, MS [address] [address] [email or web address] Loop Recorder, Removal documented as of this encounter Visit Diagnoses Not on filedocumented in this encounter Care Teams Career Information Specialist Relationship Specialty Start Date End Date Andre Tipton MD [address] [place] [address] [address] [place] [phone] PCP - General Internal Medicine 03/03/15 Sandra Bills MD, MS [address] [place] [phone] [email or web address] Cardiology 06/20/23 Inderjit Broderick MD [address] [place] [phone] Cardiology 06/20/23 documented as of this encounter Additional Source Comments The information contained in this document represents components of the legal health record. It is not the complete legal health record.[facility]
--- OUTSIDE RECORDS SUMMARY | 2025-03-05 10:43 | XMS_ITS | Encounter Summary ---
Author Organization [facility] Address [address] [facility] [address] [place] [address] Phone Care Team Providers Care Regional Sales Engineer Name Role Phone Andre Tipton MD Primary Care Provider [phone] Sandra Bills MD, MS Unavailable [phone] Inderjit Broderick MD Unavailable [phone] Reason for Referral * MRI/CAT Scan - Closed Specialty Diagnoses / Procedures Referred By Contac t Referred To Contact Radiology Diagnoses Paroxysmal ventricular tachycardia PVC (premature ventricular contraction) Procedures MRI Cardiac System, Provider Not In, PhD [address] [address] Referral ID Status Reason Start Date Expiration Date Visits Re quested Visits Authorized [id number] Closed 03/20/2019 05/18/2019 1 1 Encounter Details Date Type Department Care Team (Late st Contact Info) Description 03/19/2019 Ancillary Orders [facility] [address] [place] [address] System, Provider Not In, PhD [address] [address] Paroxysmal ventricular tachycardia; PVC (premature ventricular contraction) [...] (Latest Contact Info) Description 05/12/2025 Hospital Encounter [facility] Electrophysiology Lab [address] [place] [address] Sandra Bills MD, MS [address] [address] [email or web address] 05/12/2025 Procedure Pass [facility] Electrophysiology Lab [address] [place], [place] [phone] 05/12/2025 11:00 AM EDT - 05/12/2025 12:30 PM EDT Surgery [facility] Electrophysiology Lab [address] [place] [address] Snadra Bills MD, MS [address] [phone] [email or web address] Loop Recorder, Removal documented as of [...] Exam Date: Apr 09, 2019 Exam #: [id number] BSA: 1.66 m2 Referring MD: Rian Correa [...] Cardiac MRI Attending: Khang Owens MD ATTESTATION: I, Buddy Steigner, as teaching physician have reviewed the images, if any, for this patient's exam, and if necessary, have edited the report originally created by Onur Sherman. Procedure Note Khang Owens MD - 04/09/2019 CARDIOVASCULAR MAGNETIC RESONANCE IMAGING REPORT BASIC PATIENT AND EXAM INFORMATION: Patient: Catherine Snider Sex: Female Height: 1.6 m : 1960 Weight: 63.5 kg Exam Date: Apr 09, 2019 Exam #: [id number] BSA: 1.66 m2 Referring MD: Rian Correa [...] tachycardia) documented in this encounter Care Teams Regional Sales Engineer Relationship Specialty Start Date End Date Andre Tipton MD [address] [place] [address] [address] [place] [phone] PCP - General Internal Medicine 03/03/15 Sandra Bills MD, MS [address] [place] [address] [email or web address] Cardiology 06/20/23 Inderjit Broderick MD [address] [place] [address] Cardiology 06/20/23 documented as of this encounter Additional Source Comments The information contained in this document represents components of the legal health record. It is not the complete legal health record.[facility]
== END 2025-03-05 12:30 | disposition home or self-care (01) ==
LOC: HO.HMCH 09:54
PROVIDERS: PCP Internal Medicine; Visit Provider Internal Medicine
DX: F41.1 Generalized anxiety disorder (principal); I47.10 Supraventricular tachycardia, unspecified; E78.00 Pure hypercholesterolemia, unspecified

== ENCOUNTER → 2025-03-05 09:54 | Outpatient (BNVA) | payer MEDICARE, SELFPAY | PROVIDERS: PCP Internal Medicine; Visit Provider Internal Medicine | DX: F41.1 Generalized anxiety disorder (principal); I47.10 Supraventricular tachycardia, unspecified; E78.00 Pure hypercholesterolemia, unspecified | CPT/HCPCS: 99212 ==